=== PATIENT | female | born 1955 | race Caucasian/White ===

== ENCOUNTER → 2017-03-19 09:00 | Outpatient (CLI) | payer OTHER ==
[2012-08-30 09:36] VITALS: BMI 35.2
== END | disposition home or self-care (01) ==
LOC: D.MAMMO 09:00
DX: Z12.31 Encounter for screening mammogram for malignant neoplasm of breast (principal)

== ENCOUNTER → 2017-03-22 18:25 | Outpatient (CLI) | payer OTHER ==
[2012-08-30 09:36] VITALS: BMI 35.2
[2017-03-22 21:52] LABS: ANION GAP 9.5 mmol/L (8-16); CALCIUM 7.3 mg/dL (8.5-10.1); CREATININE - SERUM 2.1 mg/dL (0.6-1.3)
[2017-03-22 21:55] LABS: CARBON DIOXIDE 41.5 mmol/L (21.0-32.0)
== END | disposition home or self-care (01) ==
LOC: D.LABREF 18:25
PROVIDERS: Emergency Medicine
DX: E11.42 Type 2 diabetes mellitus with diabetic polyneuropathy (principal); I11.0 Hypertensive heart disease with heart failure; I50.22 Chronic systolic (congestive) heart failure; Z79.891 Long term (current) use of opiate analgesic

== ENCOUNTER 2017-10-04 13:04 | Day surgery (SDC) | payer OTHER ==
[~2017-10-04] VITALS: Ht 177.8 cm; Wt 133.6 kg
--- NOTE | ~2017-10-04 | OP ---
PATIENT NAME: SHAGGY AGUAYO MEDICAL RECORD: [id number] :59 LOCATION:D.OPS ADMISSION DATE: SURGEON: DAYANARA CLEMENTS DO DATE OF OPERATION: 10/04/2017 PROCEDURE: Colonoscopy with biopsies. INDICATION FOR PROCEDURE: Abdominal pain, rectal prolapse, constipation. SCOPE: Olympus video pediatric colonoscope. MEDICATIONS: Propofol 860 mg IV per anesthesia. ESTIMATED BLOOD LOSS: Minimal. COMPLICATIONS: None. FINDINGS: Informed consent was given. The patient was made comfortable with the above medication. After reaching an adequate level of sedation by slow IV push, the patient was placed on her left side. A digital rectal examination was performed and was normal. The endoscope was then advanced under direct visualization through the rectum to the ascending colon. The endoscope did not reach the cecum. This was complicated by looping of the colonoscope as well as poor prep, which left a large amount of remaining stool still within the ascending colon. The cecum could be visualized in the distance from the final position. The endoscope was slowly withdrawn and mucosa was carefully looked at. From the visualized mucosa, there were no polyps seen on today's examination. In the rectum, there was inflamed, erythematous, and friable tissue which had appearances consistent with prolapsed tissue. Two cold forceps biopsies were taken to confirm this diagnosis. Retroflexion was performed in the rectum with a normal appearing rectal wall. The endoscope was then withdrawn from the patient. The patient tolerated the procedure well and there were no complications. IMPRESSION: 1. Incomplete colonoscopy due to poor prep and looping of the colonoscope. 2. Likely rectal prolapse with appearances of prolapsed tissue in the rectum, biopsies pending. PLAN AND RECOMMENDATIONS: 1. Discharge home when recovery parameters are met. 2. Follow up biopsy specimen results. 3. Referral to [facility] colorectal surgery will be initiated. 4. Increase Linzess to twice daily use. 5. Follow up in GI clinic after [facility] referral completed. 6. We will repeat colonoscopy after it is determine if anything should be done about the rectal prolapse. TRANSINT:[id number] Voice Confirmation ID: [id number] DOCUMENT ID: [id number] OPERATIVE REPORT [id number] SHAGGY AGUAYO DAYANARA CLEMENTS DO at 0911 CC: [id number] DICTATION DATE: 10/04/17 1541 FRENCH LECTURER: 10/04/17 1618 [facility] [place] 10/04/17 [id number] [place] [address]
[2017-10-04] MEDS ORDERED: LIPITOR80 MG PO (13:36)
[2017-10-04] MEDS ORDERED: CYMBALTA60 MG PO (13:38)
[2017-10-04] MEDS ORDERED: KLONOPIN0.5 MG PO (13:38)
[2017-10-04] MEDS ORDERED: FENTANYL (13:39)
[2017-10-04] MEDS ORDERED: FUROSEMIDE40 MG PO (13:40)
[2017-10-04] MEDS ORDERED: DILAUDID8 MG PO (13:41)
[2017-10-04] MEDS ORDERED: ISOSORBIDE MONO30 M1 PO (13:41)
[2017-10-04] MEDS ORDERED: LEVOTHYROXINE50 MCG PO (13:42)
[2017-10-04] MEDS ORDERED: LANTUS INSULIN10 ML SC (13:42)
[2017-10-04] MEDS ORDERED: LISINOPRIL10 MG PO (13:43)
[2017-10-04] MEDS ORDERED: LYRICA150 MG PO (13:43)
[2017-10-04] MEDS ORDERED: LINZESS145 MCG PO (13:43)
[2017-10-04] MEDS ORDERED: PROVIGIL200 MG PO (13:44)
[2017-10-04] MEDS ORDERED: NOVOLOG100 U/M1 SC (13:45)
[2017-10-04] MEDS ORDERED: KLOR-CON20 MEQ/PKT PO (13:45)
[2017-10-04] MEDS ORDERED: BUPROPION XL150 MG PO (13:46)
[2017-10-04] MEDS ORDERED: SYMBICORT 16010.2 GM INH (13:46)
[2017-10-04] MEDS ORDERED: PROTONIX40 MG PO (13:47)
[2017-10-04] MEDS ORDERED: ZANAFLEX4 MG PO (13:48)
[2017-10-04] MEDS ORDERED: VENTOLIN HFA18 GM INH (13:49)
[2017-10-04 13:57] VITALS: BP 120/63; Ht 177.8 cm; Wt 133.6 kg
[2017-10-04 14:15] LABS: BASOPHILS 0.1 % (0-2); EOSINOPHILS 1.4 % (0-7); HEMATOCRIT 34.4 % (36.0-48.0); HEMOGLOBIN 11.5 g/dL (12-16); IMMATURE GRANULOCYTES 0.2 % (0-5); LYMPHOCYTES 17.3 % (15-50); MCH 30.4 pg (26.0-34.0); MCHC 33.4 g/dL (31.0-37.0); RBC 3.78 10x6/uL (4.00-5.40); RDW 13.7 % (11.5-14.5)
[2017-10-04 14:22] LABS: PLATELET COUNT 212 10x3/uL (130-400)
[2017-10-04 14:25] LABS: ANION GAP 12.1 mmol/L (8-16); CALCIUM 8.5 mg/dL (8.5-10.1); CARBON DIOXIDE 34.5 mmol/L (21.0-32.0); CREATININE - SERUM 1.3 mg/dL (0.6-1.3); POTASSIUM - SERUM 4.6 mmol/L (3.5-5.1)
== END 2017-10-04 16:00 | disposition home or self-care (01) ==
LOC: D.OPS 13:04
PROVIDERS: Anesthesiology
DX: R10.9 Unspecified abdominal pain (principal); E11.9 Type 2 diabetes mellitus without complications; G47.30 Sleep apnea, unspecified; K21.9 Gastro-esophageal reflux disease without esophagitis; E66.01 Morbid (severe) obesity due to excess calories; Z68.41 Body mass index [BMI] 40.0-44.9, adult; Z01.812 Encounter for preprocedural laboratory examination

== ENCOUNTER 2017-10-12 11:13 | Emergency (ER) | payer OTHER ==
[2017-10-04 13:57] VITALS: BMI 42.2
[~2017-10-12 11:13] MED LIST: BUPROPION XL150 MG PO; CYMBALTA60 MG PO; DILAUDID8 MG PO; FENTANYL; FUROSEMIDE40 MG PO; ISOSORBIDE MONO30 M1 PO; KLONOPIN0.5 MG PO; KLOR-CON20 MEQ/PKT PO; LANTUS INSULIN10 ML SC; LEVOTHYROXINE50 MCG PO; LINZESS145 MCG PO; LIPITOR80 MG PO; LISINOPRIL10 MG PO; LYRICA150 MG PO; NOVOLOG100 U/M1 SC; PROTONIX40 MG PO; PROVIGIL200 MG PO; SYMBICORT 16010.2 GM INH; VENTOLIN HFA18 GM INH; ZANAFLEX4 MG PO
[2017-10-12 13:08] LABS: BASOPHILS 0.1 % (0-2); EOSINOPHILS 0.6 % (0-7); HEMATOCRIT 34.5 % (36.0-48.0); HEMOGLOBIN 11.7 g/dL (12-16); IMMATURE GRANULOCYTES 0.2 % (0-5); LYMPHOCYTES 12.5 % (15-50); MCHC 33.9 g/dL (31.0-37.0); MCV 91.3 fL (80.0-100.0); MEAN PLATELET VOLUME 10.4 fL (7.4-10.4); MONOCYTES 5.9 % (2-11); NEUTROPHILS 80.7 % (40-80); PLATELET COUNT 188 10x3/uL (130-400); RBC 3.78 10x6/uL (4.00-5.40); RDW 13.5 % (11.5-14.5); WBC 8.2 10x3/uL (4.8-10.8)
[2017-10-12 13:19] LABS: ALBUMIN 3.2 g/dL (3.4-5.0); ANION GAP 10.2 mmol/L (8-16); BILIRUBIN - TOTAL 0.42 mg/dL (0.2-1.3); CALCIUM 8.3 mg/dL (8.5-10.1); CARBON DIOXIDE 34.8 mmol/L (21.0-32.0); CREATININE - SERUM 1.3 mg/dL (0.6-1.3); PROTEIN - SERUM 7.4 g/dL (6.4-8.2)
[2017-10-12 14:14] LABS: UDS - AMPHET NEGATIVE QUAL (NEGATIVE); UDS - BARB POSITIVE QUAL (NEGATIVE); UDS - BENZO NEGATIVE QUAL (NEGATIVE); UDS - COCAINE NEGATIVE QUAL (NEGATIVE); UDS - OPIATE POSITIVE QUAL (NEGATIVE); UDS - PCP NEGATIVE QUAL (NEGATIVE); UDS - THC NEGATIVE QUAL (NEGATIVE)
[2017-10-12 14:23] LABS: APPEARANCE CLEAR (CLEAR); BILIRUBIN NEGATIVE (NEGATIVE); COLOR YELLOW (YELLOW); GLUCOSE NEGATIVE (NEGATIVE); KETONE NEGATIVE (NEGATIVE); NITRITE NEGATIVE (NEGATIVE); PROTEIN NEGATIVE (NEGATIVE); SPECIFIC GRAVITY 1.005 (1.005-1.020); UROBILINOGEN NORMAL (NORMAL)
== END 2017-10-12 14:42 | disposition other institution (70) ==
LOC: D.ER 11:13
PROVIDERS: Family Medicine
DX: F11.23 Opioid dependence with withdrawal (principal); T85.9XXA Unspecified complication of internal prosthetic device, implant and graft, initial encounter; R11.10 Vomiting, unspecified

== ENCOUNTER → 2017-12-07 13:02 | Outpatient (CLI) | payer OTHER ==
[2017-10-04 13:57] VITALS: BMI 42.2
[~2017-12-07 13:02] MED LIST changes: +BUTALB-APAP-CA1 EACH PO; +CARAFATE1 G PO; +ELIQUIS5 MG PO; +REGLAN10 MG PO
== END | disposition home or self-care (01) ==
LOC: D.CT 13:02
DX: K62.3 Rectal prolapse (principal)

== ENCOUNTER 2018-01-20 18:20 | Inpatient (IN) | payer OTHER ==
[~2018-01-20] VITALS: Ht 177.8 cm; Wt 127.3 kg
--- NOTE | ~2018-01-20 | OP ---
PATIENT NAME: SHAGGY AGUAYO MEDICAL RECORD: [id number] :59 LOCATION:D.M2 D.2120 ADMISSION DATE:01/21/18 SURGEON: EVONNE HOWARD MD DATE OF OPERATION: 01/25/2018 PROCEDURES: 1. Left heart catheterization. 2. Selective coronary angiography. 3. Left ventriculogram. INDICATION: Chest pain compatible with angina. PROCEDURE IN DETAIL: After informed consent was obtained and after a detailed description of the risks, benefits as well as alternative therapies, the patient elected to proceed with angiogram and heart catheterization. The right radial area was prepped and draped in normal sterile fashion. Right radial artery was cannulated via modified Seldinger technique with placement of 6-Maori sheath. All catheters exchanged through this sheath. FINDINGS: The left ventriculogram was performed in standard 30-degree KELLY view reveals preserved cardiac wall motion, ejection fraction 50% to 55%. SELECTIVE CORONARY ANGIOGRAPHY: Left main, left anterior descending, left circumflex, right coronary artery are all smooth-walled vessels with no angiographic evidence of coronary artery disease. OVERALL IMPRESSION: 1. No angiographic evidence of coronary artery disease. 2. Normal left heart pressures. 3. Normal left ventricular systolic function. Chest pain is noncardiac in etiology. No further cardiac workup needs to be ascertained. TRANSINT:[id number] Voice Confirmation ID: [id number] DOCUMENT ID: [id number] EVONNE HOWARD MD at 1642 CC: [id number] DICTATION DATE: 01/25/18 1327 HOME DEMONSTRATION AGENT: 01/25/18 1412 DIS IN 01/27/18 [facility] [address] [place] [address]
--- NOTE | ~2018-01-20 | EC ---
PATIENT:SHAGGY AGUAYO DATE OF SERVICE: 01/21/18 SEX: F MEDICAL RECORD: [id number] DATE OF : 59 LOCATION:D. D.212 AGE OF PATIENT: 62 ADMISSION DATE: 01/21/18 REFERRING PHYSICIAN: INTERPRETING PHYSICIAN: EVONNE CHARLES MD ECHOCARDIOGRAM REPORT ECHO CHARGES 4 ECHO COMPLETE Date: 01/21 CLINICAL DIAGNOSIS: HTN ECHOCARDIOGRAPHIC MEASUREMENTS (adult normal given) AC root (d.<3.7cm) 4.3 cm LV Septum d (<1.2 cm> 1.5 cm Valve Excursion 2.0 cm LV Septum (systole) 1.9 cm Left Atria (s.<4.0cm> 4.0 cm LVPW d(<1.2cm) 1.7 cm RV (d.<2.3cm) 4.1 cm LVPW (sytole) 1.8 cm LV diastole(<5.6CM) 5.6 cm MV E-F(>70mm/sec) cm LV systole 3.5 cm LVOT Diameter 2.2 cm MV exc.(>10mm) cm Est.ejection fraction (50-75%) % DOPPLER: LVIT cm/sec A 97 cm/sec E 109 cm/sec LA cm/sec RVSP 45 mmHg LVOT 117 cm/sec AOP1/2T m/s Asc. Ao 160 cm/sec RVOT 92 cm/sec RA cm/sec PA 119 cm/sec AV Gradient Peak 10.28mmHg AV Mean 5.35 mmHg AV Area 2.7 cm MV Gradient Peak 4.89 mmHg MV Mean 2.11 mmHg MV Area cm COMMENTS: Proposal Development Manager: Erich RIVERA Milk Collector: 1 Dr. Charles TAPE# PACS Pericardial Effusion N DATE OF SERVICE: 01/21/2018 FINDINGS: 1. Left ventricular chamber size is within normal limits. Left ventricular systolic function is normal. Overall ejection fraction is estimated at 60%. 2. Left atrium upper limits of normal at 4.0 cm. Right atrium and right ventricle chamber sizes are mildly dilated. 3. Valvular structure have normal structure and motion. 4. Doppler interrogation reveals mild tricuspid regurgitation. No other valvular insufficiency or stenosis. Pulmonary systolic pressure is estimated at ECHOCARDIOGRAM REPORT [id number] SHAGGY AGUAYO 45 mmHg. 5. No evidence of pericardial effusion or left ventricular thrombus. TRANSINT:[id number] Voice Confirmation ID: [id number] DOCUMENT ID: [id number] EVONNE CHARLES MD at 1834 CC: [id number] DICTATION DATE: 01/21/18 1443 AC/DC REWINDER: 01/21/18 1548 ADM IN [facility] [address] [place] [address]
--- NOTE | ~2018-01-20 | HEMODYNAMI ---
PATIENT:SHAGGY AGUAYO MEDICAL RECORD: [id number] : 59 LOCATION:[facility] D.2120 ADMISSION DATE: 01/21/18 Generatedon:01/24/201812:33 Patient name: SHAGGY AGUAYO Patient #: [id number] SSN: DO B: 1955 Date of study: 01/24/2018 Page: Of Hemodynamic Procedure Report Patient Data Patient Demographics Procedure consent was obtained First Name: SHAGGY Gender: Female Last Name: OLIVIER : 1955 [facility] Initial: BIRGIT Age: 62 year(s) Patient #: [id number] Race: Unknown Additional ID: [id number] Contact details [address]: [address] [place] [address] State: [place] City: [place] Zip code: [address] Past Medical History Allergies Allergen Reaction Date Comments Reported Other allergy 01/24/2018 CIPRO, INVANZ, VANC, VALIUM, PCN, SULFA Admission Admission Data Admission Date: 01/21/2018 Admission Time: 12:51 Room #: D.2120 Procedure Procedure Types Cath Procedure Diagnostic Procedure Procedure Description Procedure Date Procedure Date: 01/24/2018 Procedure Start Time: 11:31 Procedure Staff Name Function Delphine Smith RT Monitor Flora Yeager RN Nurse Luis Charles MD Performing Physician Bala Gruber RT Scrub Procedure Medications Medication Administration Route Dosage Oxygen etCO2 Nasal cannula 2 l/min Lidocaine 2% added to field 20 Heparin Flush Bag added to field 2 bags (1000units/500ml NS) 0.9% NaCl I.V. 100 ml/hr Solumedrol I.V. 125 mg Versed I.V. 2 mg Fentanyl I.V. 100 mcg Fentanyl I.V. 100 mcg Versed I.V. 2 mg Versed I.V. 2 mg Fentanyl I.V. 100 mcg Hemodynamics Rest Heart Rate: 69 (bpm) Snapshots Pre Cath Intra NCS Post Cath Vital Signs Time Heart Resp SPO2 etCO2 NIBP (mmHg) Rhythm Pain Sedation Rate (ipm) (%) (mmHg) Status Level (bpm) 12:05:30 67 23 96 49.3 149/81(123) NSR 0 (11) 10(A) , No pain 12:09:36 71 27 94 47.8 149/87(111) NSR 0 (11) 10(A) , No pain 12:13:41 70 16 95 44.1 151/89(119) NSR 0 (11) 10(A) , No pain 12:17:47 67 13 96 47.8 159/91(134) NSR 0 (11) 10(A) , No pain 12:21:55 71 14 94 45.5 158/92(128) NSR 0 (11) 10(A) , No pain 12:26:05 66 14 95 49.3 155/87(125) NSR 0 (11) 10(A) , No pain Medications Time Medication Route Dose Verified Delivered Reason Notes Effectiveness by by 12:07:41 Oxygen etCO2 2 Luis Buffie used for pt is on Nasal l/min Araceli Yeager RN procedure home oxygen cannula at 2 liters at all times. 12:07:47 Lidocaine 2% added 20ml Luis Luis for local to vial Araceli Charles MD anesthetic field 12:07:53 Heparin Flush added 2 Luis Luis used for Bag to bags Araceli Charles MD procedure (1000units/500ml field NS) 12:08:01 0.9% NaCl I.V. 100 Luisjass Hines Per ml/hr Araceli Yeager RN physician 12:14:36 Versed I.V. 2 mg Luis Hines for pt states Araceli Yeager RN sedation anaphlyasis to iodine 12:14:38 Fentanyl I.V. 100 Luis Buffie for pt states mcg Araceli Yeager RN sedation anaphlyasis to iodine 12:17:33 Versed I.V. 2 mg Luis Carranzaie for Araceli Yeager RN sedation 12:17:44 Fentanyl I.V. 100 Luis Carranzaie for mcg Araceli Yeager RN sedation 12:21:02 Fentanyl I.V. 100 Luis Carranzaie for mcg Araceli Yeager RN sedation 12:21:58 Versed I.V. 2 mg Luis Hines for Araceli Yeager RN sedation 12:22:11 Solumedrol I.V. 125 Luis Hines Per pt states mg Araceli Yeager RN physician anaphlyasis to iodine Procedure Log Time Note 11:32:42 Time tracking: Regular hours (M-F 7:00 - 5:00) 11:32:46 Plan of Care:Hemodynamics will remain stable., Cardiac rhythm will remain stable., Comfort level will be maintained., Respiratory function will remain adequate., Patient/ family verbilizes understanding of procedure., Procedure tolerated without complication., Recovers from procedure without complications.. 11:34:32 Flora Yeager RN sent for patient. Start room use. 11:48:08 Patient received from PCU to CCL 2 Alert and oriented. Tansferred to table in Supine position. 11:48:10 Correct patient and procedure confirmed by team. 11:48:10 Warm blankets applied, and blanco hugger turned on for patient comfort. 11:48:12 Signed procedure consent form obtained from patient. 11:48:13 ECG and BP/O2 sat monitors applied to patient. 11:48:14 Full Disclosure recording started 12:04:24 Vital chart was started 12:07:41 Oxygen 2 l/min etCO2 Nasal cannula was administered by Flora Yeager RN; used for procedure; pt is on home oxygen at 2 liters at all times. 12:07:42 Baseline sample Acquired. 12:07:47 Rhythm: sinus rhythm 12:07:47 Lidocaine 2% 20ml vial added to field was administered by Luis Charles MD; for local anesthetic; 12:07:53 H&P Date Dictated: 01/24/2018 Within 30 days and on chart.. 12:07:53 Heparin Flush Bag (1000units/500ml NS) 2 bags added to field was administered by Luis Charles MD; used for procedure; 12:07:55 Pre-op teaching completed and patient verbalized understanding. 12:07:55 Pre-procedure instructions explained to patient. 12:07:58 Family in patients room. 12:08:00 Patient NPO since Midnight. 12:08:01 0.9% NaCl 100 ml/hr I.V. was administered by Flora Yeager RN; Per physician; 12:08:48 Patient allergic to Other allergyCIPRO, INVANZ, VANC, VALIUM, PCN, SULFA 12:08:50 Is the patient allergic to Iodine/contrast media? No. 12:08:53 Is patient on blood thinner?Yes 12:10:12 Previous problem with sedation/anesthesia? No ? 12:10:14 Snore? Yes 12:10:15 Deviated septum? No 12:10:15 Sleep apnea? Yes 12:10:17 Opens mouth fully? Yes 12:10:18 Sticks out tongue? Yes 12:10:20 Airway obstruction? Yes COPD 12:10:23 Dentures? No ? 12:11:06 Patient diabetic? Yes. 12:11:17 If diabetic: On Metformin? No 12:11:20 Pre procedure: right dorsailis pedis pulse 1+ Palpable, but thready & weak; easily obliterated 12:11:23 Modified Selwyn's test Ulnar < 7 seconds 12:11:24 Patient pain scale 0/10 ?. 12:11:44 PICC LINE LEFT UPPER ARM 12:11:49 Lab results completed and on chart. 12:11:54 Right Radial & Right Groin area was prepped with chlora-prep and draped in sterile fashion 12:11:55 Sharps counted by scrub and verified by R.N. 12:11:55 Alarms reviewed by R. N. 12:11:59 Use device set Radial Dx or PCI 12:13:38 Final Timeout: patient, procedure, and site verified with staff and physician. All members of the team are in agreement. 12:13:41 Right Radial site verified by team. 12:13:44 Physical assessment completed. ASA score P 2 - A patient with mild systemic disease as per Luis Charles MD. 12:13:48 Sedation plan: IV Moderate Sedation Medication:Versed, Fentanyl 12:14:36 Versed 2 mg I.V. was administered by Flora Yeager RN; for sedation; pt states anaphlyasis to iodine 12:14:38 Fentanyl 100 mcg I.V. was administered by Flora Yeager RN; for sedation; pt states anaphlyasis to iodine 12:15:38 Zero performed for pressure channel P1 12:17:33 Versed 2 mg I.V. was administered by Flora Yeager RN; for sedation; 12:17:44 Fentanyl 100 mcg I.V. was administered by Flora Yeager RN; for sedation; 12:21:02 Fentanyl 100 mcg I.V. was administered by Flora Yeager RN; for sedation; 12:21:10 PROCEDURE CANCELLED DUE TO ANAPHYLACTIC IODINE ALLERGY HISTORY. WILL PREMEDICATE WITH PREDNISONE TONIGHT AND SCHEDULE PROCEDURE FOR TOMORROW PER DR CHARLES 12:21:58 Versed 2 mg I.V. was administered by Flora Yeager RN; for sedation; 12:22:11 Solumedrol 125 mg I.V. was administered by Flora Yeager RN; Per physician; pt states anaphlyasis to iodine 12:22:28 Procedure ended.(Physican Out) 12:22:40 Sharps counted by scrub and verified by R.N. 12:22:48 Post procedure rhythm: unchanged. 12:23:06 Procedure type changed to Cath procedure, Diagnostic procedure 12:29:11 Vital chart was stopped 12:29:27 Report given to PCU. 12:29:32 Patient transfered to PCU with Bed. 12:29:36 End room use (Document Last) 12:30:00 Full Disclosure recording stopped Signature Audit Floweree Stage Time Signature Unsigned Intra-Procedure 01/24/2018 Delphine Akers Counts 12:29:53 PM Counts RT(R) RT(R) 01/24/2018 12:32:21 PM Intra-Procedure 01/24/2018 Delphine 12:33:53 PM Counts RT(R) Signatures Monitor : Delphine Signature : Counts RT Date : Time : [place] [id number] [place] [address]
--- NOTE | ~2018-01-20 | HEMODYNAMI ---
PATIENT:SHAGGY AGUAYO MEDICAL RECORD: [id number] : 59 [id number] ADMISSION DATE: 01/21/18 Generatedon:01/25/201813:32 Patient name: SHAGGY AGUAYO Patient #: [id number] SSN: DO B: 1955 Date of study: 01/25/2018 Page: Of Hemodynamic Procedure Report Patient Data Patient Demographics Procedure consent was obtained First Name: SHAGGY Gender: Female Last Name: OLIVIER : 1955 [facility] Initial: BIRGIT Age: 62 year(s) Patient #: [id number] Race: Unknown Additional ID: [id number] Contact details Address: [address] [place] [address] State: [place] City: [place] Zip code: [address] Past Medical History Allergies Allergen Reaction Date Comments Reported Other allergy 01/24/2018 CIPRO, INVANZ, VANC, VALIUM, PCN, SULFA Iodine 01/25/2018 Vancomycin 01/25/2018 Penicillins 01/25/2018 Sulfa drugs 01/25/2018 Admission Admission Data Admission Date: 01/21/2018 Admission Time: 12:51 Admit Source: Other Room #: D.2120 Lab Results Lab Result Date: 01/25/2018 Lab Result Time: 0:00 Biochemistry Name Units Result Min Max BUN mg/dl 11 --(-*--)-- 7 18 Creatinine mg/dl 1.2 --(---*)-- 0.6 1.3 CBC Name Units Result Min Max Hemoglobin g/dl 9.8 *-(----)-- 13.5 17.5 Procedure Procedure Types Cath Procedure Diagnostic Procedure LHC LHC w/Coronaries Procedure Description Procedure Date Procedure Date: 01/25/2018 Procedure Start Time: 13:05 Procedure End Time: 13:29 Procedure Staff Name Function Luis Charles MD Performing Physician Hipolito Newberry RT Monitor Bala Gruber RT Scrub Jb Hilario RN Nurse Procedure Data Cath Procedure Fluoroscopy Diagnostic fluoroscopy Total fluoroscopy Time: 9.2 time: 9.2 min min Diagnostic fluoroscopy Total fluoroscopy dose: dose: 1692 mGy 1692 mGy Contrast Material Contrast Material Type Amount (ml) Isovue 300 150 Entry Location Entry Primary Successful Side Size Upsize Upsize Entry Closure Ballard ccessful Closure Location (Fr) 1 (Fr) 2 (Fr) Remarks Device Remarks Radial Right 6 Fr Mechanical artery Short Compression Diagnostic catheters Device Type Used For End Catheter Placement DIAGNOSTIC [place] 110cm 5 LV Angiography Fr catheter ([id number]) DIAGNOSTIC 3DRC 5Fr Right Coronary catheter ([id number]) Angiography DIAGNOSTIC AR 2 MOD 5 Fr Right Coronary catheter ([id number]) Angiography Procedure Complications No complications Procedure Medications Medication Administration Route Dosage 0.9% NaCl I.V. 100 ml/hr Oxygen NC 2 l/min Heparin Flush Bag added to field 2 bags (1000units/500ml NS) Lidocaine 2% added to field 20 Radial Cocktail added to field 1 syringe (Verapomil 2mg/Nitro 400mcg/Heparin 1500units) Versed I.V. 2 mg Fentanyl I.V. 100 mcg Radial Cocktail I.A. 1 syringe (Verapomil 2mg/Nitro 400mcg/Heparin 1500units) Versed I.V. 2 mg Fentanyl I.V. 100 mcg Hemodynamics Rest HGB: 9.8 (g/dl) Heart Rate: 72 (bpm) Snapshots Pre Cath Intra NCS Post Cath Vital Signs Time Heart Resp SPO2 etCO2 NIBP (mmHg) Rhythm Pain Sedation Rate (ipm) (%) (mmHg) Status Level (bpm) 12:52:39 71 19 98 0 168/90(127) NSR 0 (11) 10(A) , No pain 12:57:22 68 16 94 0 156/83(119) NSR 0 (11) 10(A) , No pain 13:02:03 66 13 96 0 154/82(128) NSR 0 (11) 10(A) , No pain 13:06:35 80 15 93 0 120/73(88) NSR 0 (11) 10(A) , No pain 13:11:48 75 15 93 0 148/76(112) NSR 0 (11) 10(A) , No pain 13:16:25 74 15 95 0 163/83(122) NSR 0 (11) 10(A) , No pain 13:21:32 74 20 95 0 161/81(120) NSR 0 (11) 10(A) , No pain 13:26:11 70 20 96 0 161/91(130) NSR 0 (11) 10(A) , No pain Medications Time Medication Route Dose Verified Delivered Reason Notes Effectiveness by by 12:50:02 0.9% NaCl I.V. 100 Bj Jb Per ml/hr Yanelis Hilario physician RN RN 12:50:12 Oxygen NC 2 l/min Jb Jb Per Yanelis Hilario physician HALLE RN 12:50:25 Heparin Flush added 2 bags Jb Jb used for Bag to Yanelis Hilario procedure (1000units/500ml field HALLE NERI NS) 12:50:37 Lidocaine 2% added 20ml Jb Jb for local to vial Lorigan Yanelis anesthetic field HALLE NERI 12:51:03 Radial Cocktail added 1 Jb Jb used for (Verapomil to syringe Yanelis Hilario procedure 2mg/Nitro field HALLE NERI 400mcg/Heparin 1500units) 13:02:46 Versed I.V. 2 mg Jb Jb for sedation Yanelis Hilario RN, RN 13:02:54 Fentanyl I.V. 100 mcg Jb Jb for sedation Yanelis Hilario RN RN 13:04:51 Radial Cocktail I.A. 1 Jb Luis for (Verapomil syringe Yanelis Charles MD vasodilation 2mg/Nitro RN 400mcg/Heparin 1500units) 13:04:59 Versed I.V. 2 mg Jb Jb for sedation Yanelis Hilario RN, RN 13:05:05 Fentanyl I.V. 100 mcg Jb Jb for sedation Yanelis Hilario RN mail carrier technician Log Time Note 12:28:36 Informed consent obtained and on chart 12:28:40 Admit Source: Other 12:29:22 Diagnostic Cath status Elective 12:29:25 Hipolito DRISCOLL(R) sent for patient. Start room use. :: Time tracking: Regular hours (M-F 7:00 - 5:00) 12::29 Plan of Care:Hemodynamics will remain stable., Cardiac rhythm will remain stable., Comfort level will be maintained., Respiratory function will remain adequate., Patient/ family verbilizes understanding of procedure., Procedure tolerated without complication., Recovers from procedure without complications.. 12:30:15 H&P Date Dictated: 01/20/2018 Within 30 days and on chart.. 12:38:39 Patient received from Med II to CCL 1 Alert and oriented. Tansferred to table in Supine position. 12:38:40 Warm blankets applied, and blanco hugger turned on for patient comfort. 12:38:41 Correct patient and procedure confirmed by team. 12:38:41 ECG and BP/O2 sat monitors applied to patient. 12:49:48 Vital chart was started 12:50:02 0.9% NaCl 100 ml/hr I.V. was administered by Jb Hilario RN; Per physician; 12:50:12 Oxygen 2 l/min NC was administered by Jb Hilario RN; Per physician; 12:50:25 Heparin Flush Bag (1000units/500ml NS) 2 bags added to field was administered by Jb Hilario RN; used for procedure; 12:50:37 Lidocaine 2% 20ml vial added to field was administered by Jb Hilario RN; for local anesthetic; 12:51:03 Radial Cocktail (Verapomil 2mg/Nitro 400mcg/Heparin 1500units) 1 syringe added to field was administered by Jb Hilario RN; used for procedure; 12:59:01 Baseline sample Acquired. 12:59:04 Rhythm: sinus rhythm 12:59:05 Full Disclosure recording started 12:59:06 Pre-procedure instructions explained to patient. 12:59:07 Pre-op teaching completed and patient verbalized understanding. 12:59:09 Family unavailable. 12:59:11 Patient NPO since Midnight. 12:59:22 Patient allergic to Iodine 12:59:35 Patient allergic to Vancomycin 12:59:46 Patient allergic to Penicillins 12:59:54 Patient allergic to Sulfa drugs 12:59:56 Is the patient allergic to Iodine/contrast media? Yes. 12:59:58 Was the patient premedicated? Yes 13:00:06 Is patient on blood thinner?No 13:00:07 Patient diabetic? Yes. 13:00:09 If diabetic: On Metformin? No 13:00:10 ----Pre-sedation anethsthesia assessment.---- 13:00:13 Previous problem with sedation/anesthesia? No ? 13:00:15 Snore? Yes 13:00:17 Sleep apnea? Yes 13:00:19 Deviated septum? No 13:00:23 Opens mouth fully? Yes 13:00:25 Sticks out tongue? Yes 13:00:27 Airway obstruction? Yes ? 13:00:30 Dentures? No ? 13:00:34 Pre procedure: right dorsailis pedis pulse 1+ Palpable, but thready & weak; easily obliterated 13:00:37 Modified Selwyn's test Ulnar < 7 seconds 13:00:40 Patient pain scale 0/10 ?. 13:00:48 IV patent on arrival in left forearm with 0.9% NaCl at 10ml/hr. 13:01:09 Lab Result : Creatinine 1.2 mg/dl 13:01:09 Lab Result : BUN 11 mg/dl 13:01:09 Lab Result : Hemoglobin 9.8 g/dl 13:01:14 Lab results completed and on chart. 13:01:18 Right Radial & Right Groin area was prepped with chlora-prep and draped in sterile fashion 13:01:19 Alarms reviewed by R. N. 13:01:19 Sharps counted by scrub and verified by R.N. 13::21 --------ALL STOP TIME OUT------ 13:01:21 Final Timeout: patient, procedure, and site verified with staff and physician. All members of the team are in agreement. 13:01:24 Right Radial & Right Groin site verified by team. 13:01:27 Physical assessment completed. ASA score P 2 - A patient with mild systemic disease as per Luis Charles MD. 13:01:30 Sedation plan: IV Moderate Sedation Medication:Versed, Fentanyl 13:02:46 Versed 2 mg I.V. was administered by Jb Hilario RN; for sedation; 13:02:54 Fentanyl 100 mcg I.V. was administered by Jb Hilario RN; for sedation; 13:04:25 Use device set Radial Dx or PCI 13:04:26 ACIST Syringe (16786) opened to sterile field. 13:04:26 Medline Cath Pack ([id number]) opened to sterile field. 13:04:27 Bag Decanter (2002S) opened to sterile field. 13:04:27 DIAGNOSTIC WIRE .035 260cm J wire (148689) opened to sterile field. 13:04:28 ACIST Hand Control (08274) opened to sterile field. 13:04:28 ACIST Manifold (35610) opened to sterile field. 13:04:29 Tegaderm 4 x 4 (1626W) opened to sterile field. 13:04:29 MBrace Wrist Support ([id number]) opened to sterile field. 13:04:31 TR BAND Large ([id number]) opened to sterile field. 13:04:38 SHEATH 6Fr Prelude Radial ([id number]) opened to sterile field. 13:04:43 Procedure started. 13:04:51 Radial Cocktail (Verapomil 2mg/Nitro 400mcg/Heparin 1500units) 1 syringe I.A. was administered by Luis Charles MD; for vasodilation; 13:04:59 Versed 2 mg I.V. was administered by Jb Hilario RN; for sedation; 13:05:05 Fentanyl 100 mcg I.V. was administered by Jb Hilario RN; for sedation; 13:05:14 Local anesthetic to right radial artery with Lidocaine 2% by Luis Charles MD.INITIAL ACCESS ONLY 13:05:22 A 6 Fr Short sheath was inserted into the Right Radial artery 13:05:29 A DIAGNOSTIC [place] 110cm 5 Fr catheter (273396) was advanced over the wire and used for LV Angiography. 13:05:32 LV angiography performed. 13:05:35 LV gram done using KELLY 13:06:11 Zero performed for pressure channel P1 13:06:45 EF : 60 % 13:08:05 Catheter removed. 13:08:54 GUIDE 6FR AR 2.0 catheter (EF5VA14) opened to sterile field. 13:09:05 6 Fr AR 2 guide catheter was inserted over the wire 13:10:29 Catheter removed. 13:11:38 GUIDE 6FR XBLAD 3.5 catheter ([id number]) opened to sterile field. 13:11:53 6 Fr XBLAD 3.5 guide catheter was inserted over the wire 13:12:53 Catheter removed. 13:13:03 GUIDE 6FR XBLAD 4.0 catheter ([id number]) opened to sterile field. 13:13:09 LCA angiography performed. 13:17:09 Catheter removed. 13:17:38 Zero performed for pressure channel P1 13:18:06 A DIAGNOSTIC 3DRC 5Fr catheter (593419Y) was advanced over the wire and used for Right Coronary Angiography. 13:19:35 Catheter removed. 13:20:30 A DIAGNOSTIC AR 2 MOD 5 Fr catheter (266010G) was advanced over the wire and used for Right Coronary Angiography. 13:25:09 RCA angiography performed. 13:25:10 Catheter removed. 13:27:29 Sheath removed intact; hemostasis achieved with Mechanical Compression to the Right Radial artery. 13:27:32 Procedure ended.(Physican Out) 13:27:47 Fluoroscopy time 09.20 minutes. 13:27:55 Fluoroscopy dose: 1692 mGy 13:27:55 Flurop Dose total: 1692 13:28:09 Contrast amount:Isovue 300 150ml. 13:28:11 Sharps counted by scrub and verified by R.N. 13:28:13 TR band inflated with 14cc of air. 13:28:15 Insertion/operative site no bleeding no hematoma. 13:28:18 Post-op/insertion site Right Femoral artery dressed using a 4 x 4 and Tegaderm. 13:28:44 Post right radial artery:stable 13:28:46 Post Procedure Pulses reassessed and unchanged 13:28:50 Post procedure rhythm: sinus rhythm 13:28:52 Post procedure instruction explained to patient.Patient verbalizes understanding. 13:29:00 Procedure and supply charges have been captured, reviewed, submitted and are correct. 13:29:24 Procedure Complication : No complications 13:29:27 Vital chart was stopped 13:29:27 See physician's report for complete and final results. 13:29:30 Report given to PCU. 13:29:34 Patient transfered to PCU with Bed. 13:29:36 Procedure ended. 13:29:36 Full Disclosure recording stopped 13:29:41 End room use (Document Last) Device Usage Item Name Manufacture Quantity Catalog Number Hospital Part Current M inimal Lot# / Charge Number Stock Stock Serial# Code ACIST Syringe Acist 1 44630 548409 412417 026779 2 0 (68134) MyWave Medline Cath Cardinal 1 [id number] 569104 16993 690568 5 Pack [facility] ([id number]) Bag Decanter Microtek 1 062528 87685 317852 5 (2002S) Medical Inc. DIAGNOSTIC WIRE St Iggy 1 820353 488858 664575 060987 3 0 .035 260cm J wire (915158) ACIST Hand Acist 1 92339 167410 071229 497046 5 Control (96426) Medical Systems Inc ACIST Manifold Acist 1 79822 380482 912860 264466 5 (64874) Medical Systems Inc Tegaderm 4 x 4 3M 1 1626W 942885 367645 342171 5 (1626W) MBrace Wrist Advanced 1 140-0250-00 012504 39941 385909 5 Support Vascular ([id number]) Dynamics TR BAND Large Terumo 1 [id number] 462272 280794 360301 4 0 ([id number]) SHEATH 6Fr Merit 1 [id number] 771799 067029 574581 5 Prelude Radial Medical ([id number]) DIAGNOSTIC Terumo 1 40-8343 487956 348390 326859 5 [place] 110cm 5 Fr catheter (658703) GUIDE 6FR AR Medtronic 1 [id number] 507558 08192 815291 1 2.0 catheter (YQ0DL19) GUIDE 6FR XBLAD Cardinal 1 13664102 697117 711616 683522 1 0 3.5 catheter Health (30325521) GUIDE 6FR XBLAD Cardinal 1 28951073 387641 101811 887928 3 4.0 catheter Health (32030449) DIAGNOSTIC 3DRC Cardinal 1 [id number] 542358 535744 502560 9 5Fr catheter Health (940966R) DIAGNOSTIC AR 2 Cardinal 1 [id number] 720141 935642 827784 2 0 MOD 5 Fr Health catheter (168789T) Signature Audit [place] Stage Time Signature Unsigned Intra-Procedure 01/25/2018 Hipolito DRISCOLL(Kiesha) 1:32:47 PM Signatures Monitor : Hipolito Newberry RT Signature : Date : Time : [facility] [address] [place] [address]
[~2018-01-20 18:20] MED LIST changes: -BUTALB-APAP-CA1 EACH PO; -CARAFATE1 G PO; -ELIQUIS5 MG PO; -REGLAN10 MG PO
[2018-01-20 19:11] LABS: BASOPHILS 0.1 % (0-2); EOSINOPHILS 1.1 % (0-7); HEMATOCRIT 34.4 % (36.0-48.0); HEMOGLOBIN 11.6 g/dL (12-16); IMMATURE GRANULOCYTES 0.1 % (0-5); LYMPHOCYTES 14.8 % (15-50); MCH 30.4 pg (26.0-34.0); MCHC 33.7 g/dL (31.0-37.0); MCV 90.3 fL (80.0-100.0); MEAN PLATELET VOLUME 10.3 fL (7.4-10.4); MONOCYTES 4.2 % (2-11); NEUTROPHILS 79.7 % (40-80); PLATELET COUNT 166 10x3/uL (130-400); RBC 3.81 10x6/uL (4.00-5.40); RDW 13.6 % (11.5-14.5); WBC 9.3 10x3/uL (4.8-10.8)
[2018-01-20 19:51] LABS: ALBUMIN 3.4 g/dL (3.4-5.0); ALKALINE PHOSPHATASE 122 U/L (46-116); ALT (SGPT) 14 U/L (10-68); BILIRUBIN - TOTAL 0.78 mg/dL (0.2-1.3); CALC OSMOLALITY 283 mosm/kg (275-300); CARBON DIOXIDE 31.8 mmol/L (21.0-32.0); CHLORIDE - SERUM 97 mmol/L (98-107); CKMB 0.8 U/L (0.0-3.6); CREATININE - SERUM 2.1 mg/dL (0.6-1.3); GLUCOSE 138 mg/dL (74-106); POTASSIUM - SERUM 3.1 mmol/L (3.5-5.1); PROTEIN - SERUM 7.6 g/dL (6.4-8.2); SODIUM 139 mmol/L (136-145); UREA NITROGEN 25 mg/dL (7-18); eGFR NON AFRICAN AMERICAN 25 mL/min (90-120)
[2018-01-20 19:53] LABS: TROPONIN-I < 0.017 ng/mL (0.000-0.060)
[2018-01-20 19:54] LABS: CALCIUM 5.8 mg/dL (8.5-10.1)
[2018-01-21 00:50] LABS: CKMB 1.2 U/L (0.0-3.6); TROPONIN-I < 0.017 ng/mL (0.000-0.060)
[2018-01-21] MEDS ORDERED: ELIQUIS5 MG PO (02:21)
[2018-01-21] MEDS ORDERED: BUTALB-APAP-CA1 EACH PO (02:30)
[2018-01-21 02:36] VITALS: BP 134/78; BMI 36.6
[2018-01-21 05:06] LABS: BASOPHILS 0.1 % (0-2); EOSINOPHILS 1.6 % (0-7); HEMATOCRIT 33.3 % (36.0-48.0); HEMOGLOBIN 11.1 g/dL (12-16); IMMATURE GRANULOCYTES 0.3 % (0-5); LYMPHOCYTES 29.8 % (15-50); MCH 30.1 pg (26.0-34.0); MCHC 33.3 g/dL (31.0-37.0); MCV 90.2 fL (80.0-100.0); MONOCYTES 6.1 % (2-11); NEUTROPHILS 62.1 % (40-80); PLATELET COUNT 171 10x3/uL (130-400); RBC 3.69 10x6/uL (4.00-5.40); RDW 13.5 % (11.5-14.5); WBC 7.7 10x3/uL (4.8-10.8)
[2018-01-21 05:36] LABS: CALC OSMOLALITY 284 mosm/kg (275-300); CARBON DIOXIDE 30.5 mmol/L (21.0-32.0); CHLORIDE - SERUM 101 mmol/L (98-107); CKMB 0.9 U/L (0.0-3.6); CREATININE - SERUM 1.9 mg/dL (0.6-1.3); GLUCOSE 98 mg/dL (74-106); PHOSPHOROUS 4.5 mg/dL (2.5-4.9); POTASSIUM - SERUM 3.1 mmol/L (3.5-5.1); SODIUM 141 mmol/L (136-145); TROPONIN-I < 0.017 ng/mL (0.000-0.060); UREA NITROGEN 23 mg/dL (7-18); eGFR NON AFRICAN AMERICAN 28 mL/min (90-120)
[2018-01-21 05:38] LABS: MAGNESIUM - SERUM 0.2 mg/dL (1.8-2.4)
[2018-01-21 05:50] VITALS: BP 86/40
[2018-01-21 08:25] VITALS: BP 100/46
[2018-01-21 08:53] VITALS: Ht 177.8 cm; Wt 127.3 kg
[2018-01-21 11:43] VITALS: BP 112/76
[2018-01-21 15:57] LABS: T4 THYROXIN - FREE 1.29 ng/dL (0.76-1.46); THYROID STIMULATING HORMONE 0.47 uIU/mL (0.36-3.74)
[2018-01-21 16:16] LABS: % SATURATION 19 % (15-55); IRON 42 ug/dl (35-150); TOTAL IRON BIND CAPACITY 217 ug/dl (260-445); UNSAT IRON BIND CAPACITY 175 ug/dl (150-375)
[2018-01-21 20:00] VITALS: BP 98/36
[2018-01-22] VITALS: BP 92/52
[2018-01-22 04:00] VITALS: BP 90/48
[2018-01-22 05:46] LABS: BASOPHILS 0.2 % (0-2); EOSINOPHILS 2.2 % (0-7); HEMATOCRIT 29.4 % (36.0-48.0); HEMOGLOBIN 9.7 g/dL (12-16); IMMATURE GRANULOCYTES 0.2 % (0-5); LYMPHOCYTES 17.9 % (15-50); MCH 30.1 pg (26.0-34.0); MCV 91.3 fL (80.0-100.0); MONOCYTES 5.8 % (2-11); NEUTROPHILS 73.7 % (40-80); PLATELET COUNT 152 10x3/uL (130-400); RBC 3.22 10x6/uL (4.00-5.40); RDW 13.6 % (11.5-14.5)
[2018-01-22 05:49] LABS: WBC 5.5 10x3/uL (4.8-10.8)
[2018-01-22 06:02] LABS: ALBUMIN 2.7 g/dL (3.4-5.0); BILIRUBIN - TOTAL 0.47 mg/dL (0.2-1.3); CARBON DIOXIDE 31.6 mmol/L (21.0-32.0); CREATININE - SERUM 1.8 mg/dL (0.6-1.3)
[2018-01-22 06:04] LABS: CALCIUM 6.3 mg/dL (8.5-10.1); POTASSIUM - SERUM 3.6 mmol/L (3.5-5.1); PROTEIN - SERUM 5.5 g/dL (6.4-8.2)
[2018-01-22 08:09] VITALS: BP 92/40
[2018-01-22 08:19] LABS: FOLATE (FOLIC ACID) - SERUM 7.6 ng/mL (>3.0)
[2018-01-22 11:46] VITALS: BP 80/40
[2018-01-22 15:14] VITALS: BP 85/40
[2018-01-22 19:53] LABS: APPEARANCE CLEAR (CLEAR); BILIRUBIN NEGATIVE (NEGATIVE); COLOR YELLOW (YELLOW); GLUCOSE NEGATIVE (NEGATIVE); KETONE NEGATIVE (NEGATIVE); NITRITE NEGATIVE (NEGATIVE); PROTEIN NEGATIVE (NEGATIVE); SPECIFIC GRAVITY 1.015 (1.005-1.020); UROBILINOGEN NORMAL (NORMAL)
[2018-01-22 20:01] VITALS: BP 99/48
[2018-01-23] VITALS (7 sets, daily range): BP systolic 81–109; BP diastolic 24–88
[2018-01-23 05:16] LABS: BASOPHILS 0.2 % (0-2); EOSINOPHILS 3.4 % (0-7); HEMATOCRIT 29.4 % (36.0-48.0); HEMOGLOBIN 9.8 g/dL (12-16); LYMPHOCYTES 26.5 % (15-50); MCH 30.2 pg (26.0-34.0); MCHC 33.3 g/dL (31.0-37.0); MCV 90.7 fL (80.0-100.0); MONOCYTES 5.8 % (2-11); NEUTROPHILS 64.1 % (40-80); PLATELET COUNT 156 10x3/uL (130-400); RBC 3.24 10x6/uL (4.00-5.40); RDW 13.5 % (11.5-14.5); WBC 6.6 10x3/uL (4.8-10.8)
[2018-01-23 05:39] LABS: ALBUMIN 2.7 g/dL (3.4-5.0); ANION GAP 9.2 mmol/L (8-16); BILIRUBIN - TOTAL 0.52 mg/dL (0.2-1.3); CARBON DIOXIDE 34.1 mmol/L (21.0-32.0); CREATININE - SERUM 1.5 mg/dL (0.6-1.3); POTASSIUM - SERUM 3.3 mmol/L (3.5-5.1); PROTEIN - SERUM 6.1 g/dL (6.4-8.2)
[2018-01-23 05:41] LABS: CALCIUM 6.8 mg/dL (8.5-10.1); MAGNESIUM - SERUM 1.4 mg/dL (1.8-2.4)
[2018-01-24 04:16] VITALS: BP 94/44
[2018-01-24 04:51] LABS: BASOPHILS 0.2 % (0-2); EOSINOPHILS 3.1 % (0-7); HEMATOCRIT 29.6 % (36.0-48.0); HEMOGLOBIN 9.8 g/dL (12-16); IMMATURE GRANULOCYTES 0.3 % (0-5); LYMPHOCYTES 20.9 % (15-50); MCH 30.2 pg (26.0-34.0); MCHC 33.1 g/dL (31.0-37.0); MCV 91.4 fL (80.0-100.0); MEAN PLATELET VOLUME 11.1 fL (7.4-10.4); MONOCYTES 5.5 % (2-11); PLATELET COUNT 167 10x3/uL (130-400); RBC 3.24 10x6/uL (4.00-5.40); RDW 13.5 % (11.5-14.5); WBC 6.1 10x3/uL (4.8-10.8)
[2018-01-24 05:09] LABS: ALBUMIN 2.5 g/dL (3.4-5.0); ANION GAP 8.1 mmol/L (8-16); BILIRUBIN - TOTAL 0.37 mg/dL (0.2-1.3); CALCIUM 7.7 mg/dL (8.5-10.1); CARBON DIOXIDE 33.8 mmol/L (21.0-32.0); CREATININE - SERUM 1.2 mg/dL (0.6-1.3); MAGNESIUM - SERUM 1.7 mg/dL (1.8-2.4); POTASSIUM - SERUM 3.9 mmol/L (3.5-5.1); PROTEIN - SERUM 5.8 g/dL (6.4-8.2)
[2018-01-24 07:49] VITALS: BP 100/50
[2018-01-24 11:03] VITALS: BP 116/47
[2018-01-24 20:00] VITALS: BP 94/38
[2018-01-25 04:17] VITALS: BP 118/79; BP 119/60
[2018-01-25 05:49] LABS: BASOPHILS 0 % (0-2); EOSINOPHILS 0 % (0-7); HEMATOCRIT 30.6 % (36.0-48.0); HEMOGLOBIN 10.2 g/dL (12-16); IMMATURE GRANULOCYTES 0.5 % (0-5); LYMPHOCYTES 6.3 % (15-50); MCH 30.4 pg (26.0-34.0); MCHC 33.3 g/dL (31.0-37.0); MCV 91.1 fL (80.0-100.0); MONOCYTES 1.8 % (2-11); NEUTROPHILS 91.4 % (40-80); PLATELET COUNT 199 10x3/uL (130-400); RBC 3.36 10x6/uL (4.00-5.40); RDW 13.3 % (11.5-14.5)
[2018-01-25 05:53] LABS: ALBUMIN 2.7 g/dL (3.4-5.0); ANION GAP 7.4 mmol/L (8-16); BILIRUBIN - TOTAL 0.31 mg/dL (0.2-1.3); CALCIUM 8.1 mg/dL (8.5-10.1); CARBON DIOXIDE 29.4 mmol/L (21.0-32.0); CREATININE - SERUM 1.3 mg/dL (0.6-1.3); MAGNESIUM - SERUM 1.7 mg/dL (1.8-2.4); PROTEIN - SERUM 6.4 g/dL (6.4-8.2)
[2018-01-25 06:11] LABS: POTASSIUM - SERUM 4.8 mmol/L (3.5-5.1); WBC 8.5 10x3/uL (4.8-10.8)
[2018-01-25 07:47] VITALS: BP 99/41
[2018-01-25 11:00] VITALS: BP 105/51
[2018-01-25 20:00] VITALS: BP 168/72
[2018-01-26 00:20] VITALS: BP 153/71
[2018-01-26 04:00] VITALS: BP 117/63
[2018-01-26 05:39] LABS: BASOPHILS 0 % (0-2); EOSINOPHILS 0.1 % (0-7); HEMATOCRIT 32.2 % (36.0-48.0); HEMOGLOBIN 10.4 g/dL (12-16); IMMATURE GRANULOCYTES 0.2 % (0-5); LYMPHOCYTES 7.6 % (15-50); MCH 30.1 pg (26.0-34.0); MCHC 32.3 g/dL (31.0-37.0); MEAN PLATELET VOLUME 10.6 fL (7.4-10.4); MONOCYTES 3.1 % (2-11); PLATELET COUNT 184 10x3/uL (130-400); RBC 3.46 10x6/uL (4.00-5.40); RDW 13.6 % (11.5-14.5); WBC 9.1 10x3/uL (4.8-10.8)
[2018-01-26 05:40] LABS: MCV 93.1 fL (80.0-100.0)
[2018-01-26 06:16] LABS: ALBUMIN 2.7 g/dL (3.4-5.0); ANION GAP 9.4 mmol/L (8-16); BILIRUBIN - TOTAL 0.27 mg/dL (0.2-1.3); CALCIUM 7.9 mg/dL (8.5-10.1); CARBON DIOXIDE 31.6 mmol/L (21.0-32.0); CREATININE - SERUM 1.3 mg/dL (0.6-1.3); MAGNESIUM - SERUM 1.8 mg/dL (1.8-2.4); PROTEIN - SERUM 6.4 g/dL (6.4-8.2)
[2018-01-26 07:41] VITALS: BP 152/70
[2018-01-26 11:36] VITALS: BP 161/79
[2018-01-26 14:32] VITALS: BP 138/77
[2018-01-26 20:19] VITALS: BP 109/52
[2018-01-27] VITALS: BP 104/42
[2018-01-27 04:00] VITALS: BP 128/56
[2018-01-27 05:39] LABS: BASOPHILS 0.1 % (0-2); EOSINOPHILS 1.5 % (0-7); HEMATOCRIT 30.9 % (36.0-48.0); HEMOGLOBIN 9.9 g/dL (12-16); IMMATURE GRANULOCYTES 0.6 % (0-5); LYMPHOCYTES 25.1 % (15-50); MCH 29.9 pg (26.0-34.0); MCV 93.4 fL (80.0-100.0); MEAN PLATELET VOLUME 10.5 fL (7.4-10.4); MONOCYTES 6.4 % (2-11); NEUTROPHILS 66.3 % (40-80); PLATELET COUNT 158 10x3/uL (130-400); RBC 3.31 10x6/uL (4.00-5.40); RDW 13.4 % (11.5-14.5); WBC 6.9 10x3/uL (4.8-10.8)
[2018-01-27 05:54] LABS: ANION GAP 5.4 mmol/L (8-16); CALCIUM 7.9 mg/dL (8.5-10.1); CREATININE - SERUM 1.3 mg/dL (0.6-1.3); POTASSIUM - SERUM 4.4 mmol/L (3.5-5.1)
[2018-01-27 08:06] VITALS: BP 126/64
[2018-01-27] MEDS ORDERED: CARAFATE1 G PO (09:57)
[2018-01-27] MEDS ORDERED: PROTONIX40 MG PO (09:57)
[2018-01-27] MEDS ORDERED: REGLAN10 MG PO (09:58)
== END 2018-01-27 13:17 | disposition home or self-care (01) | DRG 287 ==
LOC: D.ER 18:20 → OBSVTIME 23:18 → D.M2 23:18 → D.EDHOLD 23:18 → D.M2 01-21 00:11
PROVIDERS: Family Medicine; Internal Medicine Nephrology
PROC: 05HC33Z Insertion of Infusion Device into Left Basilic Vein, Percutaneous Approach (ICD-10-PCS; principal; 2018-01-22)
PROC: B54NZZA Ultrasonography of Left Upper Extremity Veins, Guidance (ICD-10-PCS; 2018-01-22)
PROC: B2111ZZ Fluoroscopy of Multiple Coronary Arteries using Low Osmolar Contrast (ICD-10-PCS; 2018-01-25)
PROC: B2151ZZ Fluoroscopy of Left Heart using Low Osmolar Contrast (ICD-10-PCS; 2018-01-25)
PROC: 4A023N7 Measurement of Cardiac Sampling and Pressure, Left Heart, Percutaneous Approach (ICD-10-PCS; 2018-01-25)
PROC: 0DJ08ZZ Inspection of Upper Intestinal Tract, Via Natural or Artificial Opening Endoscopic (ICD-10-PCS; 2018-01-25)
PROC: 0DJ08ZZ Inspection of Upper Intestinal Tract, Via Natural or Artificial Opening Endoscopic (ICD-10-PCS; 2018-01-26)
DX: R07.89 Other chest pain (principal); N17.9 Acute kidney failure, unspecified; E83.51 Hypocalcemia; E87.6 Hypokalemia; D64.9 Anemia, unspecified; E11.9 Type 2 diabetes mellitus without complications; I10 Essential (primary) hypertension; I25.10 Atherosclerotic heart disease of native coronary artery without angina pectoris; I48.91 Unspecified atrial fibrillation; K59.8 Other specified functional intestinal disorders; G89.29 Other chronic pain; J44.9 Chronic obstructive pulmonary disease, unspecified; Z86.711 Personal history of pulmonary embolism

== ENCOUNTER → 2018-03-17 18:20 | Outpatient (CLI) | payer OTHER ==
[2018-01-21 08:53] VITALS: BMI 36.6
[~2018-03-17 18:20] MED LIST changes: +BUTALB-APAP-CA1 EACH PO; +CARAFATE1 G PO; +ELIQUIS5 MG PO; +REGLAN10 MG PO
== END | disposition home or self-care (01) ==
LOC: D.MAMMO 16:00
DX: Z12.31 Encounter for screening mammogram for malignant neoplasm of breast (principal)

== ENCOUNTER 2018-12-28 12:18 | Inpatient (IN) | payer OTHER ==
[~2018-12-28] VITALS: Ht 177.8 cm; Wt 127.0 kg
[2018-12-28 13:24] LABS: HEMATOCRIT 32.9 % (36.0-48.0); HEMOGLOBIN 10.8 g/dL (12-16); LYMPHOCYTES 17.9 % (15-50); MCH 29.7 pg (26.0-34.0); MCHC 32.8 g/dL (31.0-37.0); MCV 90.4 fL (80.0-100.0); MEAN PLATELET VOLUME 10.6 fL (7.4-10.4); NEUTROPHILS 77.4 % (40-80); RBC 3.64 10x6/uL (4.00-5.40); RDW 13.9 % (11.5-14.5); WBC 6.7 10x3/uL (4.8-10.8)
[2018-12-28 13:32] LABS: ALKALINE PHOSPHATASE 116 U/L (46-116); ALT (SGPT) 10 U/L (10-68); AMYLASE - SERUM 14 U/L (25-115); CALC OSMOLALITY 284 mosm/kg (275-300); CARBON DIOXIDE 36.3 mmol/L (21.0-32.0); CHLORIDE - SERUM 98 mmol/L (98-107); CREATININE - SERUM 1.9 mg/dL (0.6-1.3); GLUCOSE 152 mg/dL (74-106); LIPASE 60 U/L (73-393); PLATELET COUNT 200 10x3/uL (130-400); POTASSIUM - SERUM 3.4 mmol/L (3.5-5.1); PROTEIN - SERUM 7.1 g/dL (6.4-8.2); SODIUM 141 mmol/L (136-145); UREA NITROGEN 14 mg/dL (7-18); eGFR NON AFRICAN AMERICAN 28 mL/min (90-120)
[2018-12-28 13:34] LABS: CALCIUM 5.3 mg/dL (8.5-10.1); TROPONIN-I < 0.017 ng/mL (0.000-0.060)
--- NOTE | 2018-12-28 14:00 | NUR ---
PT ARRIVED TO UNIT VIA STRETCHER ASSISTED BY ER STAFF.
[2018-12-28 14:01] VITALS: BP 136/80; BMI 40.2
[2018-12-28 15:54] LABS: PHOSPHOROUS 4.9 mg/dL (2.5-4.9)
[2018-12-28 15:55] LABS: MAGNESIUM - SERUM 0.5 mg/dL (1.8-2.4)
--- NOTE | 2018-12-28 19:43 | NUR ---
DRESSINGS HAS JUST BEEN CHANGED WHEN I WENT TO DO PATIENT. ROSA ROYAL APRN WAS THERE AND SAID DO IN AM. DANIELA BERRY
--- NOTE | 2018-12-28 19:56 | NUR ---
EVENING ROUNDS COMPLETED. VSS, AAOX4, NO S/S OF DISTRESS. BILAT LOWER EXTREMITIES APPEARS RED AND SWOLLEN. KERLIX BANDAGE CLEAN AND INTACT. PT DENIES PAIN. IV CALCIUM GLUCONATE INFUSING @100MLS/HR. TELEMETRY ON. R.UPPER ARM MIDLINE INTACT. PT C/O OF MILD ABD CRAMPS STATES SHE WILL NOTIFY ME IF IT GETS ANY WORSE. BUT SHE IS "FINE" FOR NOW. PT DENIES ANY FURTHER NEEDS AT THIS TIME. WILL CTM. CL WITHIN REACH, BED IN LOW, SR UP X2.
[2018-12-28 20:00] VITALS: BP 127/57
[2018-12-29] VITALS (7 sets, daily range): BP systolic 105–143; BP diastolic 46–79; Ht 177.8 cm; Wt 127.0 kg
[2018-12-29 06:16] LABS: BASOPHILS 0.2 % (0-2); EOSINOPHILS 1.7 % (0-7); HEMATOCRIT 28.9 % (36.0-48.0); HEMOGLOBIN 9.4 g/dL (12-16); IMMATURE GRANULOCYTES 0.2 % (0-5); LYMPHOCYTES 24.8 % (15-50); MCH 29.5 pg (26.0-34.0); MCHC 32.5 g/dL (31.0-37.0); MCV 90.6 fL (80.0-100.0); MEAN PLATELET VOLUME 10.5 fL (7.4-10.4); MONOCYTES 7.4 % (2-11); NEUTROPHILS 65.7 % (40-80); PLATELET COUNT 180 10x3/uL (130-400); RBC 3.19 10x6/uL (4.00-5.40); RDW 14.3 % (11.5-14.5); WBC 6.3 10x3/uL (4.8-10.8)
[2018-12-29 06:59] LABS: ALBUMIN 2.7 g/dL (3.4-5.0); ALKALINE PHOSPHATASE 102 U/L (46-116); BILIRUBIN - TOTAL 0.87 mg/dL (0.2-1.3); CALC OSMOLALITY 288 mosm/kg (275-300); CARBON DIOXIDE 36.7 mmol/L (21.0-32.0); CHLORIDE - SERUM 102 mmol/L (98-107); CREATINE KINASE 444 UL (21-215); CREATININE - SERUM 1.7 mg/dL (0.6-1.3); GLUCOSE 131 mg/dL (74-106); PHOSPHOROUS 5.1 mg/dL (2.5-4.9); POTASSIUM - SERUM 3.2 mmol/L (3.5-5.1); PROTEIN - SERUM 6.4 g/dL (6.4-8.2); SODIUM 144 mmol/L (136-145); THYROID STIMULATING HORMONE 0.31 uIU/mL (0.36-3.74); UREA NITROGEN 12 mg/dL (7-18); eGFR NON AFRICAN AMERICAN 32 mL/min (90-120)
[2018-12-29 07:09] LABS: ALT (SGPT) 13 U/L (10-68); CALCIUM 6.1 mg/dL (8.5-10.1); MAGNESIUM - SERUM 0.9 mg/dL (1.8-2.4)
[2018-12-29 07:30] LABS: CKMB 0.7 U/L (0.0-3.6)
--- NOTE | 2018-12-29 08:00 | NUR ---
PT RESTING ON SIDE OF BED, SHIFT ASSESSMENT PERFORMED. DENIES ANY NEEDS AT THIS TIME, WILL CONT TO FOLLOW POC
--- NOTE | 2018-12-29 12:30 | NUR ---
PT RESTING IN BED, DENIES ANY NEEDS AT THIS TIME, WILL CONT TO FOLLOW POC
[2018-12-29 14:41] LABS: APPEARANCE CLEAR (CLEAR); BACTERIA MANY /hpf (NONE SEEN); BILIRUBIN NEGATIVE (NEGATIVE); COLOR STRAW (YELLOW); GLUCOSE NEGATIVE (NEGATIVE); KETONE NEGATIVE (NEGATIVE); NITRITE NEGATIVE (NEGATIVE); PROTEIN NEGATIVE (NEGATIVE)
[2018-12-29 14:42] LABS: EPITHELIAL CELLS RARE /hpf (0-5); WHITE CELLS - URINE 0-5 /hpf (0-5)
--- NOTE | 2018-12-29 17:27 | NUR ---
ULTRASOUND JUST LEFT FROM PT ROOM, NURSE PERFORMED WOUND CARE TO BLE. PT TOLERATED WELL. DENIES ANY FURTHER NEEDS AT THIS TIME. WILL CONT TO FOLLOW POC
--- NOTE | 2018-12-29 20:19 | MORECARE ---
CASE MANAGEMENT DISCHARGE SUMMARY PATIENT: SHAGGY AGUAYO ANN UNIT: [id number] ADM DATE: 12/28/18 AGE: 63 : 59 SEX: F ROOM/BED: D.1206 AUTHOR: ARTEM PRIETO PHYSICIAN: REFERRING PHYSICIAN: CONSUELO FONSECA MD DATE OF SERVICE: 12/29/18 Discharge Plan Patient Name: SHAGGY AGUAYO Facility: [facility]:[place] : 1955 Planned Disposition: Home with Home Health Anticipated Discharge Date: Discharge Date: Expected LOS: Initial Reviewer: [email or web address] Initial Review Date: 12/29/2018 Generated: 12/29/18 9:19 pm Patient Name: SHAGGY AGUAYO Page [id number] at 2019 All edits/amendments must be made on the electronic document DICTATION DATE: 12/29/182018 CRISIS INTERVENTION SPECIALIST: ANDREW 12/29/18 2019 RPT#: [id number] DC DATE: STATUS: ADM IN [facility] [address] [place] [address] END OF REPORT
--- NOTE | 2018-12-29 20:26 | MORECARE ---
CASE MANAGEMENT DISCHARGE SUMMARY PATIENT: SHAGGY AGUAYO ANN UNIT: [id number] ADM DATE: 12/28/18 AGE: 63 : 59 SEX: F ROOM/BED: D.1206 AUTHOR: ARTEM PRIETO PHYSICIAN: REFERRING PHYSICIAN: CONSUELO FONSECA MD DATE OF SERVICE: 12/29/18 Discharge Plan Patient Name: SHAGGY AGUAYO Facility: [facility]:[place] : 1955 Planned Disposition: Home with Home Health Anticipated Discharge Date: Discharge Date: Expected LOS: Initial Reviewer: [email or web address] Initial Review Date: 12/29/2018 Generated: 12/29/18 9:25 pm DCPIA - Discharge Planning Initial Assessment Updated by [email or web address]: Katie Arias on 12/29/18 8:22 pm * Is the patient Alert and Oriented? Yes * How many steps to enter\exit or inside your home? ramp * PCP [facility] * [facility] * Preadmission Environment Home with Family * ADLs Independent * Other Equipment W/C, WALKER, CANE, HOME 02 ([employer]), NEBULIZER * List name and contact numbers for known caregivers / representatives who currently or will assist patient after discharge: JAYESH HEARN - [phone] * Verbal permission to speak to the caregivers and representatives has been obtained from the patient. Yes * Community resources currently utilized Home Health * Please name any agencies selected above. [facility] * Additional services required to return to the preadmission environment? No * Can the patient safely return to the preadmission environment? Yes * Has this patient been hospitalized within the prior 30 days at any hospital? No Last DP export: 12/29/18 7:19 p Patient Name: SHAGGY AGUAYO Page 14578 at 2025 All edits/amendments must be made on the electronic document DICTATION DATE: 12/29/182024 HYDRAULIC DREDGE OPERATOR: ANDREW 12/29/182024 RPT#: [id number] DC DATE: STATUS: ADM IN [facility] [address] [place] [address] END OF REPORT
--- NOTE | 2018-12-29 20:32 | MORECARE ---
CASE MANAGEMENT DISCHARGE SUMMARY PATIENT: SHAGGY AGUAYO ANN UNIT: [id number] ADM DATE: 12/28/18 AGE: 63 : 59 SEX: F ROOM/BED: D.1206 AUTHOR: ARTEM PRIETO PHYSICIAN: REFERRING PHYSICIAN: CONSUELO FONSECA MD DATE OF SERVICE: 12/29/18 Discharge Plan Patient Name: SHAGGY AGUAYO Facility: [facility]:[place] : 1955 Planned Disposition: Home with Home Health Anticipated Discharge Date: Discharge Date: Expected LOS: Initial Reviewer: [email or web address] Initial Review Date: 12/29/2018 Generated: 12/29/18 9:32 pm Comments DCP- Discharge Planning Updated by [email or web address]: Katie Arias on 12/29/18 7:[address] Patient Name: SHAGGY AGUAYO Admission Status: ER Accout number: [id number] Admission Date: 12-28-2018 : 1955 Admission Diagnosis:HYPOCALCEMIA Attending: CONSUELO MACIAS Current LOS: 1 Anticipated DC Date: Planned Disposition: Home with Home Health Primary Insurance: [employer] [facility] Discharge Planning Comments: CM met with patient to complete initial dc planning assessment. CM educated patient on the CM role and verbal consent given by patient to complete assessment. Patient lives at home with her grandson where she is independent with her care. At discharge patient plans to return home and feels this is a safe discharge. CM discussed availability of home health, rehab services, and medical equipment. 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 Patient has a nebulizer and home o2 ( [employer] ) walker, w/c, cane. Patient states that she has [facility] and plans to resume care with them upon discharge. Patient states that she meets with her [employer] telephonic case manager every 2 weeks. Patient denied known discharge needs at this time. CM will continue to follow and will assist as needed with dc plans/needs. Chemical Laboratory Scientist: Katie Arias DCPIA - Discharge Planning Initial Assessment Updated by [email or web address]: Katie Arias on 12/29/18 8:22 pm * Is the patient Alert and Oriented? Yes * How many steps to enter\exit or inside your home? ramp * PCP CARMEN * Pharmacy [facility] * Preadmission Environment Home with Family * ADLs Independent * Other Equipment W/C, WALKER, CANE, HOME 02 ([employer]), NEBULIZER * List name and contact numbers for known caregivers / representatives who currently or will assist patient after discharge: JAYESH HEARN - [phone] * Verbal permission to speak to the caregivers and representatives has been obtained from the patient. Yes * Community resources currently utilized Home Health * Please name any agencies selected above. [facility] * Additional services required to return to the preadmission environment? No * Can the patient safely return to the preadmission environment? Yes * Has this patient been hospitalized within the prior 30 days at any hospital? No Coverage Notice Reviewer: [email or web address] Xavier Arias Notice Issued Date-Time: 12/29/2018 20:27 Notice Type: Patient Choice Letter Notice Delivered To: Patient Relationship to Patient: Wax Ball Molder Name: Delivery Method: - Stephanie Days: Prior Verbal Notification: Recipient Understood Notice: Yes Recipient Signature: Yes Med Rec Note Co-signed by Attending: Coverage Notice Comment: CHERRIE to resume care with [facility] Last DP export: 12/29/18 7:26 p Patient Name: SHAGGY AGUAYO Page 32218 at 2031 All edits/amendments must be made on the electronic document DICTATION DATE: 12/29/182031 ELECTRICAL ENGINEERING TECHNOLOGIST: ANDREW 12/29/182031 RPT#: [id number] DC DATE: STATUS: ADM IN [facility] [address] [place] [address] END OF REPORT
[2018-12-30] VITALS: BP 132/73
[2018-12-30 04:00] VITALS: BP 144/59
[2018-12-30 06:27] LABS: BASOPHILS 0.1 % (0-2); HEMATOCRIT 32.7 % (36.0-48.0); HEMOGLOBIN 10.6 g/dL (12-16); IMMATURE GRANULOCYTES 0.3 % (0-5); LYMPHOCYTES 18.1 % (15-50); MCH 29.4 pg (26.0-34.0); MCHC 32.4 g/dL (31.0-37.0); MCV 90.8 fL (80.0-100.0); MONOCYTES 4.3 % (2-11); NEUTROPHILS 75.2 % (40-80); PLATELET COUNT 204 10x3/uL (130-400); RDW 14.1 % (11.5-14.5)
[2018-12-30 06:43] LABS: ALBUMIN 2.8 g/dL (3.4-5.0); ANION GAP 9.3 mmol/L (8-16); BILIRUBIN - TOTAL 0.63 mg/dL (0.2-1.3); CARBON DIOXIDE 33.7 mmol/L (21.0-32.0); CREATININE - SERUM 1.5 mg/dL (0.6-1.3); MAGNESIUM - SERUM 1.8 mg/dL (1.8-2.4); PHOSPHOROUS 4.7 mg/dL (2.5-4.9); PROTEIN - SERUM 6.6 g/dL (6.4-8.2)
[2018-12-30 06:44] LABS: CALCIUM 7.8 mg/dL (8.5-10.1)
--- NOTE | 2018-12-30 08:39 | NUR ---
PATIENT AROUSED TO VOICE BUT DROWSEY AND TOLERATED CL DIET WITH ASSISTANCE. DENIES PAIN AND IS ORIENTED. CL IN REACH
--- NOTE | 2018-12-30 08:46 | NUR ---
PATIENT GIVEN ZOFRAN FOR NAUSEA AND REQUEST TO HOLD PO MEDS UNTIL NAUSE IS RESOLVED. NO OTHER NEEDS VOICED.
[2018-12-30 09:35] VITALS: BP 142/68
--- NOTE | 2018-12-30 09:49 | NUR ---
PATIENT CONTINUES TO REFUSE PO MEDICAIONS DUE TO NAUSEA
--- NOTE | 2018-12-30 11:09 | NUR ---
WOUND CARE BLE VENOUS STASIS ULCERS - - REMOVE AND DISCARD DRESSINGS. - WASH WOUNDS WITH WOUND CLEANSER AND PAT DRY. - COVER WOUNDS WITH NONADHERENT DRESSING. - WRAP FEET AND LEGS WITH KERLIX. - WRAP OVER KERLIX WITH COBAN. WOUND CARE TO BE PROVIDED EVERY OTHER DAY, AND WHEN SOILED.
--- NOTE | 2018-12-30 17:02 | NUR ---
PATIENT DECLINES WOUND CARE AT THIS TIME STATING WOUND CARE IS NORMALY ONLY DONE TWICE WEEKLY PER WOUND CLINIC
[2018-12-30 20:00] VITALS: BP 155/81
[2018-12-31] VITALS: BP 129/66
[2018-12-31 04:11] VITALS: BP 95/46
[2018-12-31 06:41] LABS: BASOPHILS 0.2 % (0-2); EOSINOPHILS 3.4 % (0-7); HEMATOCRIT 32.8 % (36.0-48.0); HEMOGLOBIN 10.6 g/dL (12-16); IMMATURE GRANULOCYTES 0.5 % (0-5); LYMPHOCYTES 17.6 % (15-50); MCH 29.6 pg (26.0-34.0); MCHC 32.3 g/dL (31.0-37.0); MCV 91.6 fL (80.0-100.0); MEAN PLATELET VOLUME 10.9 fL (7.4-10.4); MONOCYTES 6.2 % (2-11); NEUTROPHILS 72.1 % (40-80); PLATELET COUNT 222 10x3/uL (130-400); RBC 3.58 10x6/uL (4.00-5.40); RDW 13.9 % (11.5-14.5); WBC 8.5 10x3/uL (4.8-10.8)
[2018-12-31 07:02] LABS: ALBUMIN 2.8 g/dL (3.4-5.0); BILIRUBIN - TOTAL 0.61 mg/dL (0.2-1.3); CALCIUM 9.1 mg/dL (8.5-10.1); CARBON DIOXIDE 33.1 mmol/L (21.0-32.0); CREATININE - SERUM 1.5 mg/dL (0.6-1.3); MAGNESIUM - SERUM 1.7 mg/dL (1.8-2.4); PHOSPHOROUS 3.8 mg/dL (2.5-4.9); PROTEIN - SERUM 6.8 g/dL (6.4-8.2)
[2018-12-31 07:06] LABS: ANION GAP 8.8 mmol/L (8-16); POTASSIUM - SERUM 4.9 mmol/L (3.5-5.1)
--- NOTE | 2018-12-31 08:05 | NUR ---
REC'D PT SITTING IN BED RESP EVEN AND NONLABORED PT DENIES NEEDS AT THIS TIME IV TO RIGHT UPPER ARM MIDLINE IS PATENT AND INTACT AT THIS TIME. LUNG SOUNDS CLEAR HRR BS+X4 NO EDEMA NOTED AT THIS TIME. SRX2 BED AT LOWEST SETTING AND LOCKED CALL LIGHT WITHIN REACH WILL CONTINUE TO MONITOR
[2018-12-31 09:34] VITALS: BP 124/76
[2018-12-31 14:03] VITALS: BP 114/64
--- NOTE | 2018-12-31 19:49 | NUR ---
PATIENT RESTING IN BED WITH NO S/S OF DISTRESS AND DENIES NEEDS AT THIS TIME. BED IN LOWEST POSITION AND CALL LIGHT WITHIN REACH. ENCOURAGED THE PATIENT TO CALL IF SHE HAS NEEDS. WILL CONTINUE TO MONITOR.
[2018-12-31 20:00] VITALS: BP 149/71
[2019-01-01] VITALS: BP 152/71
[2019-01-01 04:00] VITALS: BP 133/80
[2019-01-01 06:29] LABS: BASOPHILS 0.2 % (0-2); EOSINOPHILS 3.3 % (0-7); HEMATOCRIT 36.4 % (36.0-48.0); IMMATURE GRANULOCYTES 0.3 % (0-5); MCH 29.8 pg (26.0-34.0); MCV 90.3 fL (80.0-100.0); MONOCYTES 7.3 % (2-11); NEUTROPHILS 69.9 % (40-80); PLATELET COUNT 266 10x3/uL (130-400); RBC 4.03 10x6/uL (4.00-5.40); WBC 9.4 10x3/uL (4.8-10.8)
[2019-01-01 06:50] LABS: ALBUMIN 3.2 g/dL (3.4-5.0); ANION GAP 8.8 mmol/L (8-16); BILIRUBIN - TOTAL 0.75 mg/dL (0.2-1.3); CALCIUM 9.5 mg/dL (8.5-10.1); CARBON DIOXIDE 36.6 mmol/L (21.0-32.0); CREATININE - SERUM 1.6 mg/dL (0.6-1.3); MAGNESIUM - SERUM 1.6 mg/dL (1.8-2.4); POTASSIUM - SERUM 4.4 mmol/L (3.5-5.1); PROTEIN - SERUM 7.4 g/dL (6.4-8.2)
[2019-01-01 06:54] LABS: PHOSPHOROUS 4.8 mg/dL (2.5-4.9)
--- NOTE | 2019-01-01 08:05 | NUR ---
PT LYING IN BED RESP EVEN AND NONLABORED PT DENIES NEEDS AT THIS TIME IV TO RIGHT UPPER ARM MIDLINE PATENT AND INTACT AT THIS TIME. SRX2 BED AT LOWEST SETTING CALL LIGHT WITHIN REACH WILL CONTINUE TO MONITOR
[2019-01-01 08:40] VITALS: BP 112/64
[2019-01-01] MEDS ORDERED: TUMS X-STR300 MG PO (15:03)
--- NOTE | 2019-01-01 15:30 | MORECARE ---
CASE MANAGEMENT DISCHARGE SUMMARY PATIENT: SHAGGY AGUAYO ANN UNIT: [id number] ADM DATE: 12/28/18 AGE: 63 : 59 SEX: F ROOM/BED: D.1206 AUTHOR: ARTEM PRIETO PHYSICIAN: REFERRING PHYSICIAN: CONSUELO FONSECA MD DATE OF SERVICE: 01/01/19 Discharge Plan Patient Name: SHAGGY AGUAYO Facility: [facility]:[place] : 1955 Planned Disposition: Home with Home Health Anticipated Discharge Date: Discharge Date: Expected LOS: Initial Reviewer: [email or web address] Initial Review Date: 12/29/2018 Generated: 01/01/19 4:29 pm Comments DCP- Discharge Planning Updated by [id number]: Yudith Chawla on 01/01/19 2:[address] RESUMPTION ORDERS FOR [facility] SENT TO [facility] TO NOTIFY OF DC DCP- Discharge Planning Updated by [id number]: Katie Arias on 12/29/18 7:[address] Patient Name: SHAGGY AGUAYO Admission Status: ER Accout number: [id number] Admission Date: 12-28-2018 : 1955 Admission Diagnosis:HYPOCALCEMIA Attending: CONSUELO MACIAS Current LOS: 1 Anticipated DC Date: Planned Disposition: Home with Home Health Primary Insurance: [email or web address] PFFS Discharge Planning Comments: CM met with patient to complete initial dc planning assessment. CM educated patient on the CM role and verbal consent given by patient to complete assessment. Patient lives at home with her grandson where she is independent with her care. At discharge patient plans to return home and feels this is a safe discharge. CM discussed availability of home health, rehab services, and medical equipment. Her grandson will be her airport driver home. Patient has a nebulizer and home o2 ( [employer] ) walker, w/c, cane. Patient states that she has [facility] and plans to resume care with them upon discharge. Patient states that she meets with her [employer] manager case every 2 weeks. Patient denied known discharge needs at this time. CM will continue to follow and will assist as needed with dc plans/needs. Bank Teller: Katie Arias DCPIA - Discharge Planning Initial Assessment Updated by [id number]: Katie Arias on 12/29/18 8:22 pm * Is the patient Alert and Oriented? Yes * How many steps to enter\exit or inside your home? ramp * PCP CARMEN * Pharmacy [facility] * Preadmission Environment Home with Family * ADLs Independent * Other Equipment W/C, WALKER, CANE, HOME 02 ([employer]), NEBULIZER * List name and contact numbers for known caregivers / representatives who currently or will assist patient after discharge: JAYESH HEARN [phone] * Verbal permission to speak to the caregivers and representatives has been obtained from the patient. Yes * Community resources currently utilized Home Health * Please name any agencies selected above. [facility] * Additional services required to return to the preadmission environment? No * Can the patient safely return to the preadmission environment? Yes * Has this patient been hospitalized within the prior 30 days at any hospital? No Coverage Notice Reviewer: [id number] - Katie Arias Notice Issued Date-Time: 12/29/2018 20:27 Notice Type: Patient Choice Letter Notice Delivered To: Patient Relationship to Patient: Cable Hooker Name: Delivery Method: - Stephanie Days: Prior Verbal Notification: Recipient Understood Notice: Yes Recipient Signature: Yes Med Rec Note Co-signed by Attending: Coverage Notice Comment: CHERRIE to resume care with Pedrito ARNETT Last DP export: 12/29/18 7:32 p Patient Name: SHAGGY AGUAYO Page [phone] at 1530 All edits/amendments must be made on the electronic document DICTATION DATE: 01/01/19 152 COMPUTER ENGINEERING PROFESSOR: ANDREW 01/01/19 1529 RPT#: [id number] DC DATE: STATUS: ADM IN [facility] [address] [place] [address] END OF REPORT
--- NOTE | 2019-01-01 16:34 | NUR ---
RIGHT UPPER ARM MIDLINE REMOVED WITH 13CM CATHETER THAT IS INTACT. PT GIVEN DISCHARGE INSTRUCTIONS, PT VERBALIZES UNDERSTANDING AT THIS TIME.
--- NOTE | 2019-01-01 17:17 | NUR ---
PT TAKEN VIA WHEELCHAIR VIA PRIVATE VEHICLE AT THIS TIME
--- NOTE | 2019-01-02 09:29 | MORECARE ---
CASE MANAGEMENT DISCHARGE SUMMARY PATIENT: SHAGGY AGUAYO ANN UNIT: [id number] ADM DATE: 12/28/18 AGE: 63 : 59 SEX: F ROOM/BED: D.1206 AUTHOR: ARTEM PRIETO PHYSICIAN: REFERRING PHYSICIAN: CONSUELO FONSECA MD DATE OF SERVICE: 01/02/19 Discharge Plan Patient Name: SHAGGY AGUAYO Facility: [facility]:[place] : 1955 Planned Disposition: Home with Home Health Anticipated Discharge Date: Discharge Date: 01/01/2019 Expected LOS: Initial Reviewer: [id number] Initial Review Date: 12/29/2018 Generated: 01/02/19 10:29 am Comments DCP- Discharge Planning Updated by [id number]: Yudith Chawla on 01/01/19 2:[address] RESUMPTION ORDERS FOR [facility] SENT TO [facility] TO NOTIFY OF DC DCP- Discharge Planning Updated by [id number]: Katie Arias on 12/29/18 7:[address] Patient Name: SHAGGY AGUAYO Admission Status: ER Accout number: [id number] Admission Date: 12-28-2018 : 1955 Admission Diagnosis:HYPOCALCEMIA Attending: CONSUELO MACIAS Current LOS: 1 Anticipated DC Date: Planned Disposition: Home with Home Health Primary Insurance: [employer] PFFS Discharge Planning Comments: CM met with patient to complete initial dc planning assessment. CM educated patient on the CM role and verbal consent given by patient to complete assessment. Patient lives at home with her grandson where she is independent with her care. At discharge patient plans to return home and feels this is a safe discharge. CM discussed availability of home health, rehab services, and medical equipment. Her grandson will be her industrial tractor driver home. Patient has a nebulizer and home o2 ( [employer] ) walker, w/c, cane. Patient states that she has [facility] and plans to resume care with them upon discharge. Patient states that she meets with her [employer] upper caser every 2 weeks. Patient denied known discharge needs at this time. CM will continue to follow and will assist as needed with dc plans/needs. Security Threat Analyst: Katie Arias DCPIA - Discharge Planning Initial Assessment Updated by [id number]: Katie Arias on 12/29/18 8:22 pm * Is the patient Alert and Oriented? Yes * How many steps to enter\exit or inside your home? ramp * PCP CARMEN * Pharmacy [facility] * Preadmission Environment Home with Family * ADLs Independent * Other Equipment W/C, WALKER, CANE, HOME 02 ([employer]), NEBULIZER * List name and contact numbers for known caregivers / representatives who currently or will assist patient after discharge: JAYESH HEARN [phone] * Verbal permission to speak to the caregivers and representatives has been obtained from the patient. Yes * Community resources currently utilized Home Health * Please name any agencies selected above. [facility] * Additional services required to return to the preadmission environment? No * Can the patient safely return to the preadmission environment? Yes * Has this patient been hospitalized within the prior 30 days at any hospital? No Coverage Notice Reviewer: [id number] - Katie Arias Notice Issued Date-Time: 12/29/2018 20:27 Notice Type: Patient Choice Letter Notice Delivered To: Patient Relationship to Patient: Funder Name: Delivery Method: - Stephanie Days: Prior Verbal Notification: Recipient Understood Notice: Yes Recipient Signature: Yes Med Rec Note Co-signed by Attending: Coverage Notice Comment: CHERRIE to resume care with Pedrito ARNETT Last DP export: 01/01/19 2:30 p Patient Name: SHAGGY AGUAYO Page [phone] at 0929 All edits/amendments must be made on the electronic document DICTATION DATE: 01/02/19928 IT SERVICE TECHNICIAN: ANDREW 01/02/19928 RPT#: [id number] DC DATE:01/01/19 STATUS: DIS IN [facility] [address] [place] [address] END OF REPORT
== END 2019-01-01 17:18 | disposition home health service (06) | DRG 641 ==
LOC: D.ER 12:18 → D.M3 13:05
PROVIDERS: Family Medicine; Internal Medicine Nephrology; ADMIT Family Medicine; ATTEND Family Medicine
PROC: 05HB33Z Insertion of Infusion Device into Right Basilic Vein, Percutaneous Approach (ICD-10-PCS; principal; 2018-12-28)
PROC: B54MZZA Ultrasonography of Right Upper Extremity Veins, Guidance (ICD-10-PCS; 2018-12-28)
DX: E83.51 Hypocalcemia (principal); N17.9 Acute kidney failure, unspecified; I50.30 Unspecified diastolic (congestive) heart failure; I25.10 Atherosclerotic heart disease of native coronary artery without angina pectoris; E11.51 Type 2 diabetes mellitus with diabetic peripheral angiopathy without gangrene; J44.9 Chronic obstructive pulmonary disease, unspecified; Z95.0 Presence of cardiac pacemaker; D64.9 Anemia, unspecified; E88.09 Other disorders of plasma-protein metabolism, not elsewhere classified; G89.4 Chronic pain syndrome; F32.9 Major depressive disorder, single episode, unspecified; E03.9 Hypothyroidism, unspecified; E11.40 Type 2 diabetes mellitus with diabetic neuropathy, unspecified; I11.0 Hypertensive heart disease with heart failure; K21.9 Gastro-esophageal reflux disease without esophagitis

== ENCOUNTER 2019-02-09 11:06 | Inpatient (IN) | payer OTHER ==
[~2019-02-09] VITALS: Ht 170.2 cm; Wt 127.0 kg
[~2019-02-09 11:06] MED LIST changes: +TUMS X-STR300 MG PO
[2019-02-09 12:14] LABS: BASOPHILS 0.2 % (0-2); EOSINOPHILS 2.1 % (0-7); HEMATOCRIT 27.5 % (36.0-48.0); HEMOGLOBIN 8.9 g/dL (12-16); IMMATURE GRANULOCYTES 0.3 % (0-5); LYMPHOCYTES 15.8 % (15-50); MCH 29.4 pg (26.0-34.0); MCHC 32.4 g/dL (31.0-37.0); MCV 90.8 fL (80.0-100.0); MEAN PLATELET VOLUME 10.1 fL (7.4-10.4); NEUTROPHILS 73.6 % (40-80); RBC 3.03 10x6/uL (4.00-5.40); RDW 14.7 % (11.5-14.5); WBC 6.6 10x3/uL (4.8-10.8)
[2019-02-09 12:15] LABS: PLATELET COUNT 200 10x3/uL (130-400)
[2019-02-09 12:22] LABS: ALBUMIN 2.8 g/dL (3.4-5.0); ANION GAP 11.8 mmol/L (8-16); BILIRUBIN - TOTAL 0.52 mg/dL (0.2-1.3); CREATININE - SERUM 1.7 mg/dL (0.6-1.3); PHOSPHOROUS 4.9 mg/dL (2.5-4.9); POTASSIUM - SERUM 3.8 mmol/L (3.5-5.1); PROTEIN - SERUM 6.2 g/dL (6.4-8.2)
[2019-02-09 12:35] LABS: CALCIUM 5.8 mg/dL (8.5-10.1); MAGNESIUM - SERUM 0.6 mg/dL (1.8-2.4)
[2019-02-09 16:56] LABS: % SATURATION 93 % (15-55); IRON 29 ug/dl (35-150); TOTAL IRON BIND CAPACITY 31 ug/dl (260-445)
[2019-02-09 16:58] LABS: UNSAT IRON BIND CAPACITY 2 ug/dl (150-375)
[2019-02-09 17:33] VITALS: BP 130/68; BMI 29.0
[2019-02-09 18:19] LABS: APPEARANCE CLEAR (CLEAR); BILIRUBIN NEGATIVE (NEGATIVE); COLOR STRAW (YELLOW); GLUCOSE NEGATIVE (NEGATIVE); KETONE NEGATIVE (NEGATIVE); NITRITE NEGATIVE (NEGATIVE); PROTEIN NEGATIVE (NEGATIVE); SPECIFIC GRAVITY 1.005 (1.005-1.020); UROBILINOGEN NORMAL (NORMAL)
[2019-02-09 18:23] LABS: CREATININE - URINE 38.8 mg/dL (30-125); NA - URINE 34 MMOL/L (20-110)
[2019-02-09 18:25] LABS: PRO/CRE RATIO URINE 0.2 mg/g; PROTEIN - URINE < 6.0 mg/dL (0.0-11.9)
[2019-02-09 20:00] VITALS: BP 112/58
--- NOTE | 2019-02-09 22:02 | NUR ---
HS MEDS GIVEN WITH FRESH ICE WATER. PT DENIES PAIN OR NEEDS, BED LOW, CL IN REACH.
[2019-02-10] VITALS (7 sets, daily range): BP systolic 99–157; BP diastolic 50–75
--- NOTE | 2019-02-10 02:22 | NUR ---
RESTING WITH EYES CLOSED, RESPERATIONS EVEN, NO S/S DISTRESS NOTED.
[2019-02-10 05:22] LABS: BASOPHILS 0.2 % (0-2); HEMATOCRIT 25.7 % (36.0-48.0); HEMOGLOBIN 8.4 g/dL (12-16); IMMATURE GRANULOCYTES 0.2 % (0-5); LYMPHOCYTES 14.5 % (15-50); MCH 29.6 pg (26.0-34.0); MCHC 32.7 g/dL (31.0-37.0); MCV 90.5 fL (80.0-100.0); MEAN PLATELET VOLUME 10.5 fL (7.4-10.4); NEUTROPHILS 76.1 % (40-80); PLATELET COUNT 211 10x3/uL (130-400); RBC 2.84 10x6/uL (4.00-5.40); RDW 14.5 % (11.5-14.5); WBC 6.6 10x3/uL (4.8-10.8)
--- NOTE | 2019-02-10 05:30 | NUR ---
I have reviewed this patient and I concur with the Shift Assessment completed by the Licensed Practical Nurse today this shift.
[2019-02-10 05:44] LABS: % SATURATION 10 % (15-55); IRON 19 ug/dl (35-150); TOTAL IRON BIND CAPACITY 184 ug/dl (260-445); UNSAT IRON BIND CAPACITY 165 ug/dl (150-375)
[2019-02-10 06:11] LABS: ANION GAP 10.2 mmol/L (8-16); CARBON DIOXIDE 33.9 mmol/L (21.0-32.0); CREATININE - SERUM 1.4 mg/dL (0.6-1.3); MAGNESIUM - SERUM 1.4 mg/dL (1.8-2.4); PHOSPHOROUS 4.7 mg/dL (2.5-4.9); POTASSIUM - SERUM 4.1 mmol/L (3.5-5.1); THYROID STIMULATING HORMONE 0.66 uIU/mL (0.36-3.74); URIC ACID 6.6 mg/dL (2.6-7.2)
[2019-02-10 06:20] LABS: CALCIUM 7.4 mg/dL (8.5-10.1)
--- NOTE | 2019-02-10 06:50 | NUR ---
REPORT RECEIVED. SHE IS ALERT SITTING IN BED. RESP EVEN WITHOUT LABOR. PICC LINE IS INTACT TO LEFT UPPER ARM. RESP EVEN WITHOUT LABOR. SHE HAS DRESSINGS INTACT TO BILATERAL LOWER LEGS. SHE DENIES ANY PAIN OR NEEDS AT THIS TIME. BED IN LOWEST POSITION AND LOCKED. CAREPLAN REVIEW DONE WITH SAFETY PRECAUTIONS IN PLACE
--- NOTE | 2019-02-10 16:40 | MORECARE ---
CASE MANAGEMENT DISCHARGE SUMMARY PATIENT: SHAGGY AGUAYO ANN UNIT: [id number] ADM DATE: 02/09/19 AGE: 63 : 59 SEX: F ROOM/BED: D.2137 AUTHOR: ARTEM PRIETO PHYSICIAN: REFERRING PHYSICIAN: CYNTHIA CASTILLO MD DATE OF SERVICE: 02/10/19 Discharge Plan Patient Name: SHAGGY AGUAYO Facility: [facility]:[place] : 1955 Planned Disposition: Home Anticipated Discharge Date: Discharge Date: Expected LOS: Initial Reviewer: [email or web address] Initial Review Date: 02/10/2019 Generated: 02/10/19 5:40 pm DCPIA - Discharge Planning Initial Assessment Updated by [email or web address]: Guille Jackson on 02/10/19 4:38 pm * Is the patient Alert and Oriented? Yes * How many steps to enter\exit or inside your home? RAMP * PCP DR. VICENTA CARMEN * Pharmacy [facility] [address] * Preadmission Environment Home with Family * ADLs Independent * Equipment Cane Nebulizer Oxygen Walker Wheelchair * Other Equipment HOME AND PORTABLE OXYGEN [employer] * List name and contact numbers for known caregivers / representatives who currently or will assist patient after discharge: JAYESH CARISANADIYA ESCOTO, * Verbal permission to speak to the caregivers and representatives has been obtained from the patient. N/A * Community resources currently utilized Home Health * Please name any agencies selected above. [facility] * Additional services required to return to the preadmission environment? No * Can the patient safely return to the preadmission environment? Yes * Has this patient been hospitalized within the prior 30 days at any hospital? No Coverage Notice Reviewer: [id number] - Guille Jackson Notice Issued Date-Time: 02/10/2019 16:15 Notice Type: Patient Choice Letter Notice Delivered To: Patient Relationship to Patient: Customer Field Representative Name: Delivery Method: HAND - Hand Delivered Stephanie Days: Prior Verbal Notification: Recipient Understood Notice: Yes Recipient Signature: Yes Med Rec Note Co-signed by Attending: Coverage Notice Comment: [facility] Patient Name: SHAGGY AGUAYO Page [phone] at 1640 All edits/amendments must be made on the electronic document DICTATION DATE: 02/10/19 1640 CENTRAL SCHEDULER: ANDREW 02/10/19 1640 RPT#: [id number] [place] DATE: STATUS: ADM IN [facility] [address] [place] [address] END OF REPORT
--- NOTE | 2019-02-10 16:41 | NUR ---
PT HAS LONG HX OF VENOUS STASIS ULCERS. SHE IS A PT AT THE [facility]. SHE HAS SEVERAL ROSSI ULCERS ON BOTH LOWER LEGS. THE RIGHT LEG DRAINS MORE AND BREAKS OUT MORE FREQUENTLY THAN THE LEFT. CLEANSED LEGS AND APPLIED XEROFORM GAUZE TO PROTECT SKIN ON RIGHT LEG, THEN WRAPPED WITH KERLIX AND NILDA. LEFT LEG : APPLIED CALCIUM ALGINATE OVER OPEN SPOTS AND WRAPPED WITH KERLIX AND SECURE WITH NILDA. PT TOLERATED WELL.
--- NOTE | 2019-02-10 16:48 | MORECARE ---
CASE MANAGEMENT DISCHARGE SUMMARY PATIENT: SHAGGY AGUAYO ANN UNIT: [id number] ADM DATE: 02/09/19 AGE: 63 : 59 SEX: F ROOM/BED: D.6740 AUTHOR: CONNER,DOC PHYSICIAN: REFERRING PHYSICIAN: CYNTHIA CASTILLO MD DATE OF SERVICE: 02/10/19 Discharge Plan Patient Name: SHAGGY AGUAYO Facility: [facility]:[place] : 1955 Planned Disposition: Home Anticipated Discharge Date: Discharge Date: Expected LOS: Initial Reviewer: [email or web address] Initial Review Date: 02/10/2019 Generated: 02/10/19 5:48 pm Comments DCP- Discharge Planning Updated by [email or web address]: Guille Jackson on 02/10/19 3:[address] Patient Name: SHAGGY AGUAYO Admission Status: Elective Accout number: [id number] Admission Date: 02-09-2019 : 1955 Admission Diagnosis: Attending: CYNTHIA QUINTERO Current LOS: 1 Anticipated DC Date: Planned Disposition: Home WITH HOME HEALTH Primary Insurance: [employer] [facility] Discharge Planning Comments: CM MET WITH PT IN ROOM TO DISCUSS DISCHARGE PLANNING AND NEEDS. PT REPORTS LIVING AT HOME INDEPENDENTLY, ALSO IN THE HOME IS PT'S ADULT GRANDSON. PT HAS CANE, NEBULIZER, HOME AND PORTABLE OXYGEN, [facility]ALK[facility]. PT HAS [facility] FOR [facility] THAT PT WANTS RESUMED FOR DISCHARGE HOME. CHOICE LETTER SIGNED. CM DISCUSSED AVAILABILITY OF HOME HEALTH, REHAB SERVICES AND MEDICAL EQUIPMENT. PT DENIES DISCHARGE NEEDS OTHER THAN HOME HEALTH. PT REPORTS HER GRANDSON WILL PICK HER UP FOR DISCHARGE HOME. FOR DISCHARGE HOME, NOTIFY [facility] AT [phone]. FAX DISCHARGE INFORMATION TO [facility] AT [phone]. Manager Staffing: Guille Jackson DCPIA - Discharge Planning Initial Assessment Updated by [email or web address]: Guille Jackson on 02/10/19 4:38 pm * Is the patient Alert and Oriented? Yes * How many steps to enter\exit or inside your home? RAMP * PCP DR. VICENTA CARMEN * Pharmacy [facility] [address] * Preadmission Environment Home with Family * ADLs Independent * Equipment Cane Nebulizer Oxygen Walker Wheelchair * Other Equipment HOME AND PORTABLE OXYGEN [employer] * List name and contact numbers for known caregivers / representatives who currently or will assist patient after discharge: NADIYA JONES, * Verbal permission to speak to the caregivers and representatives has been obtained from the patient. N/A * Community resources currently utilized Home Health * Please name any agencies selected above. [facility] * Additional services required to return to the preadmission environment? No * Can the patient safely return to the preadmission environment? Yes * Has this patient been hospitalized within the prior 30 days at any hospital? No Coverage Notice Reviewer: [id number] Xavier Jackson Notice Issued Date-Time: 02/10/2019 16:15 Notice Type: Patient Choice Letter Notice Delivered To: Patient Relationship to Patient: Waste Water Worker Name: Delivery Method: HAND - Hand Delivered Stephanie Days: Prior Verbal Notification: Recipient Understood Notice: Yes Recipient Signature: Yes Med Rec Note Co-signed by Attending: Coverage Notice Comment: [facility] Last DP export: 02/10/19 3:40 pm Patient Name: SHAGGY AGUAYO Page [phone] at 1648 All edits/amendments must be made on the electronic document DICTATION DATE: 02/10/191646 FUNERAL DIRECTOR/EMBALMER: ANDREW 02/10/191646 RPT#: [id number] DC DATE: STATUS: ADM IN [facility] [address] [place] [address] END OF REPORT
--- NOTE | 2019-02-10 17:15 | NUR ---
NO CHANGE IN CONDITION NOTED. SHE HAS BEEN UP TO BATHROOM.
--- NOTE | 2019-02-11 | NUR ---
UP ON SIDE OF BED, STATES SHE DOES NOT FEEL RIGHT. VS STABLE. HOBBER STICKERS REPLACED. PATIENT RELATIONS COORDINATOR REPORTS SHE IS 69 SINUS. PT REPORTS CONTINUE NAUSEA, BUT STATES IT IS MUCH BETTER THAN IT WAS PRIOR TO PRN ZOFRAN. INFORMED OF NEED FOR STOOL SAMPLE, PT VERBALIZED UNDERSTANDING. WILL MONITOR CLOSELY.
[2019-02-11 04:21] VITALS: BP 122/60
--- NOTE | 2019-02-11 07:00 | NUR ---
RECEIVED REPORT. ASSUMED CARE OF PATIENT. PATIENT SITTING TO SIDE OF BED. COMPLAINS SHE HAS NOT SLEPT LAST NIGHT. CALL LIGHT WITHIN REACH. RESP EVEN AND UNLABORED. NO DISTRESS.
--- NOTE | 2019-02-11 07:38 | NUR ---
MEDICATED FOR NAUSEA. ASSISTED PATIENT BACK TO BED FROM RESTROOM. PATIENT REQUESTING ANXIETY MEDICATION, ALL HAS BEEN STOPPED. INFORMED PATIENT SHE WILL RECEIVE HER WELLBUTRIN THIS AM. PATIENT SITTING TO SIDE OF BED AT THIS TIME. NO DISTRESS.
--- NOTE | 2019-02-11 08:14 | NUR ---
CALLED PHARMACY AND SPOKE TO SEMAJ TO REQUEST ROCALCETROL BE BROUGHT TO THE UNIT EACH PYXIS IS EMPTY. MED TO UNIT SOON PER SEMAJ.
[2019-02-11 08:45] VITALS: BP 136/73
[2019-02-11 08:53] LABS: BASOPHILS 0.1 % (0-2); EOSINOPHILS 0.9 % (0-7); HEMATOCRIT 27.5 % (36.0-48.0); HEMOGLOBIN 9.1 g/dL (12-16); IMMATURE GRANULOCYTES 0.1 % (0-5); LYMPHOCYTES 13.2 % (15-50); MCH 29.8 pg (26.0-34.0); MCHC 33.1 g/dL (31.0-37.0); MCV 90.2 fL (80.0-100.0); MEAN PLATELET VOLUME 10.2 fL (7.4-10.4); MONOCYTES 4.9 % (2-11); NEUTROPHILS 80.8 % (40-80); PLATELET COUNT 216 10x3/uL (130-400); RBC 3.05 10x6/uL (4.00-5.40); RDW 14.1 % (11.5-14.5); WBC 6.7 10x3/uL (4.8-10.8)
[2019-02-11 09:05] LABS: ANION GAP 9.4 mmol/L (8-16); CALCIUM 8.3 mg/dL (8.5-10.1); CARBON DIOXIDE 33.3 mmol/L (21.0-32.0); CREATININE - SERUM 1.2 mg/dL (0.6-1.3); PHOSPHOROUS 3.6 mg/dL (2.5-4.9); POTASSIUM - SERUM 4.7 mmol/L (3.5-5.1)
[2019-02-11 09:06] LABS: MAGNESIUM - SERUM 1.9 mg/dL (1.8-2.4)
--- NOTE | 2019-02-11 11:24 | NUR ---
PATIENT IS COMPLAINING THAT SHE TAKES A NUMBER OF DIFFERENT MEDICATIONS THAT WORKS TOGETHER TO HELP WITH HER PAIN MANAGMENT AND STATES THE PAIN DR DOES NOT WANT HER TO MISS ANY OF THESE MEDIATIONS BECAUSE IT IS VERY HARD TO CONTROL HER PAIN. PATIENT IS QUESTIONING JACOB HERNANDEZ. THOSE MEDICATIONS HAVE NOT YET BEEN STARTED.
--- NOTE | 2019-02-11 11:32 | NUR ---
FSBS 125. NO INSULIN PER SLIDING SCALE.
--- NOTE | 2019-02-11 11:50 | NUR ---
DR. ORTIZ HERE FOR ROUNDS. RESTARTED PATIENTS LYRICA, AND GAVE ONE TIME DOSE OF LASIX. PATIENT SITTING TO SIDE OF BED. NO DISTRESS.
--- NOTE | 2019-02-11 12:12 | NUR ---
MEDICATED FOR NAUSEA AT THIS TIME. NO DISTRESS.
[2019-02-11 12:39] VITALS: BP 140/53
--- NOTE | 2019-02-11 14:15 | NUR ---
ASSISTED PATIENT ON BED STERLING. NO DISTRESS.
[2019-02-11 16:45] VITALS: BP 137/67
--- NOTE | 2019-02-11 16:51 | NUR ---
WOUND CARE COMPLETED TO RIGHT LOWER EXTREMITY AT THIS TIME. NO DISTRESS.
--- NOTE | 2019-02-11 17:04 | NUR ---
FSBS 126. NO INSULIN PER SLIDING SCALE.
--- NOTE | 2019-02-11 19:33 | NUR ---
RECIEVED SITTING UP ON SIDE OF THE BED. ALERT AND ORIENTED X4.AMBULATES TO B/R USING A WALKER. 02@ 12 LITERS PER N/C IN PLACE. PICC TO LEFT UPPER ARM SL.. TELEMETRY IN PLACE. DSG TO TRACY LOWER EXTREMITIES CDI. PACEMAKER TO LEFT CHEST. DENIES ANY NEEDS AT THIS TIME. WILL CONT POC.
[2019-02-11 21:31] VITALS: BP 140/68
[2019-02-12 01:07] VITALS: BP 118/63
[2019-02-12 04:36] VITALS: BP 116/61
--- NOTE | 2019-02-12 06:55 | NUR ---
LINE DRAW FOR AM LABS COMPLETED BY THIS INTEGRATED LOGISTICS SUPPORT MANAGER AT THIS TIME. NO DISTRESS.
[2019-02-12 07:04] LABS: BASOPHILS 0.3 % (0-2); EOSINOPHILS 2.9 % (0-7); HEMATOCRIT 27.8 % (36.0-48.0); IMMATURE GRANULOCYTES 0.2 % (0-5); LYMPHOCYTES 22.3 % (15-50); MCH 29.4 pg (26.0-34.0); MCHC 32.4 g/dL (31.0-37.0); MCV 90.8 fL (80.0-100.0); MEAN PLATELET VOLUME 9.9 fL (7.4-10.4); MONOCYTES 7.4 % (2-11); NEUTROPHILS 66.9 % (40-80); PLATELET COUNT 195 10x3/uL (130-400); RBC 3.06 10x6/uL (4.00-5.40); RDW 14.3 % (11.5-14.5); WBC 6.2 10x3/uL (4.8-10.8)
--- NOTE | 2019-02-12 07:05 | NUR ---
RECEIVED REPORT. ASSUMED CARE OF PATIENT. CALL LIGHT WITHIN REACH. SITTING TO SIDE OF BED. NO DISTRESS.
[2019-02-12 07:19] LABS: ALBUMIN 2.7 g/dL (3.4-5.0); ANION GAP 10.2 mmol/L (8-16); BILIRUBIN - TOTAL 0.42 mg/dL (0.2-1.3); CARBON DIOXIDE 34.3 mmol/L (21.0-32.0); CREATININE - SERUM 1.3 mg/dL (0.6-1.3); POTASSIUM - SERUM 4.5 mmol/L (3.5-5.1); PROTEIN - SERUM 6.2 g/dL (6.4-8.2)
[2019-02-12 08:11] VITALS: BP 124/70
--- NOTE | 2019-02-12 09:20 | NUR ---
JOHNSON GAVIRIA APN AND RECEIVED NEW ORDERS TO HOLD SLOW MAG DUE TO PATIENT LEVEL IS 2.0 AND RENAL HAS HER ON SCHEDULED MAGNESIUM 400MG BID. ORDER INPUTTED TO HOLD UNTIL SHE GOT HERE AND SHE STATED SHE WOULD REVIEW MEDCIATIONS.
--- NOTE | 2019-02-12 09:30 | NUR ---
MEDICATED FOR NAUSEA AT THIS TIME. NO DISTRESS.
--- NOTE | 2019-02-12 11:06 | NUR ---
FSBS 126. NO INUSLIN PER SLIDING SCALE.
[2019-02-12 11:34] VITALS: BP 124/64
--- NOTE | 2019-02-12 13:57 | NUR ---
MEDICATED FOR NAUSEA AT THIS TIME. NO DISTRESS. CALL LIGHT WITHIN REACH.
[2019-02-12 15:52] VITALS: BP 122/64
--- NOTE | 2019-02-12 16:39 | NUR ---
FSBS 144. NO INSULIN PER SLIDING SCALE.
--- NOTE | 2019-02-12 18:40 | NUR ---
RESTING IN BED WITH EYES OPEN, ATTENTION TOWARD TELEVISION. CALL LIGHT WITHIN REACH. NO DISTRESS. DENIES NEEDS.
[2019-02-12 20:00] VITALS: BP 139/72
[2019-02-13 00:01] VITALS: BP 157/80
[2019-02-13 04:00] VITALS: BP 126/60
[2019-02-13 04:06] LABS: MAGNESIUM - URINE <1.4 mg/dL (Not Estab.)
[2019-02-13 05:35] LABS: BASOPHILS 0.2 % (0-2); EOSINOPHILS 2.2 % (0-7); HEMATOCRIT 30.9 % (36.0-48.0); HEMOGLOBIN 9.9 g/dL (12-16); IMMATURE GRANULOCYTES 0.2 % (0-5); LYMPHOCYTES 21.8 % (15-50); MCH 29.5 pg (26.0-34.0); MEAN PLATELET VOLUME 10.2 fL (7.4-10.4); MONOCYTES 7.2 % (2-11); NEUTROPHILS 68.4 % (40-80); RBC 3.36 10x6/uL (4.00-5.40); RDW 14.3 % (11.5-14.5); WBC 6.5 10x3/uL (4.8-10.8)
[2019-02-13 05:59] LABS: ALBUMIN 2.9 g/dL (3.4-5.0); ANION GAP 9.4 mmol/L (8-16); BILIRUBIN - TOTAL 0.43 mg/dL (0.2-1.3); CALCIUM 8.4 mg/dL (8.5-10.1); CARBON DIOXIDE 34.9 mmol/L (21.0-32.0); CREATININE - SERUM 1.4 mg/dL (0.6-1.3); MAGNESIUM - SERUM 1.9 mg/dL (1.8-2.4); PLATELET COUNT 247 10x3/uL (130-400); POTASSIUM - SERUM 4.3 mmol/L (3.5-5.1); PROTEIN - SERUM 7.1 g/dL (6.4-8.2)
--- NOTE | 2019-02-13 07:05 | NUR ---
PT SITTING ON SIDE OF BED. ALERT AND ORIENTED. O2 AT 2L VIA NC. BILATERAL LEG DRESSINGS TO BE CHANGED BY WOUND CARE NURSE. PACEMAKER. PT CONTROLS HER OWN FENTANYL PAIN PUMP AND MD IS AWARE. PT HAS NO FURTHER NEEDS AT THIS TIME. BED LOW. CL IN REACH.
[2019-02-13 07:38] VITALS: BP 130/66
[2019-02-13 11:39] VITALS: BP 141/65
[2019-02-13 14:51] VITALS: BP 113/72
--- NOTE | 2019-02-13 16:34 | NUR ---
CHANGED DRESSINGS ON BILATERAL LOWER LEGS. RIGHT DRESSING IS SATURATED WITH YELLOW DRAINAGE. SKIN IS SLIGHTLY MACERATED. CLEANED BOTH LEGS WITH WOUND ENERGY CONSERVATION TECHNICIAN AND PATTED DRY. RIGHT LEG WAS COVERED WITH XEROFORM GAUZE, ABD PADS, WRAPPED WITH KERLIX AND SECURED WITH NILDA WRAP. LEFT LEG ADAPTIC WAS APPLIED OVER OPEN AREAS, KERLIX WRAPPED AND NILDA WRAP TO SECURE. PT TOLERATED WELL. DISCUSSED CHANGING THE DRESSING CHANGE ORDERS TO DAILY AND PRN SINCE HER RIGHT LEG HAS STARTED WEEPING. WOUND CARE WILL CONTINUE MONITORING.
[2019-02-13 20:00] VITALS: BP 141/73
--- NOTE | 2019-02-13 20:32 | NUR ---
RECIEVED SITTING UP ON SIDE OF BED. ALERT AND ORIENTED X4. NILDA WRAPS TO BILATERAL LEGS UP TO KNEES CDI. PICC LINE TO LEFT UPPER ARM AND UNABLE TO FLUSH PURPLE LINE RESISTANCE TO RED LINE. TELEMETRY IN PLACE. FENTENYL PUMP IN PLACE. DENIES ANY NEEDS AT THIS TIME.
[2019-02-14] VITALS: BP 115/68
--- NOTE | 2019-02-14 00:05 | NUR ---
SITTING UP ON SIDE OF BED. ALERT AND ORIENTED X4. REQUESTED ZOFRAN EARLIER. GIVEN PER ORDERS. DENIES ANY OTHER NEEDS.
[2019-02-14 04:30] VITALS: BP 151/84
[2019-02-14 05:43] LABS: BASOPHILS 0.3 % (0-2); EOSINOPHILS 2.7 % (0-7); HEMATOCRIT 32.2 % (36.0-48.0); HEMOGLOBIN 10.6 g/dL (12-16); IMMATURE GRANULOCYTES 0.4 % (0-5); LYMPHOCYTES 23.9 % (15-50); MCH 30.3 pg (26.0-34.0); MCHC 32.9 g/dL (31.0-37.0); MEAN PLATELET VOLUME 10.2 fL (7.4-10.4); MONOCYTES 7.7 % (2-11); PLATELET COUNT 255 10x3/uL (130-400); RDW 14.2 % (11.5-14.5); WBC 7.3 10x3/uL (4.8-10.8)
[2019-02-14 06:20] LABS: ANION GAP 6.1 mmol/L (8-16); BILIRUBIN - TOTAL 0.44 mg/dL (0.2-1.3); CALCIUM 8.5 mg/dL (8.5-10.1); CARBON DIOXIDE 37.9 mmol/L (21.0-32.0); CREATININE - SERUM 1.5 mg/dL (0.6-1.3); MAGNESIUM - SERUM 1.8 mg/dL (1.8-2.4); PROTEIN - SERUM 7.4 g/dL (6.4-8.2)
--- NOTE | 2019-02-14 06:23 | NUR ---
BLOOD SUGAR 68 THIS AM WILL GIVE MEAGHAN CRACKERS AND PEANUT BUTTER
[2019-02-14 08:25] VITALS: BP 133/72
[2019-02-14 11:36] VITALS: BP 138/75
--- NOTE | 2019-02-14 14:47 | NUR ---
I have reviewed this patient and I concur with the Shift Assessment completed by the Licensed Practical Nurse today this shift.
--- NOTE | 2019-02-14 14:52 | NUR ---
DRESSINGS TO BOTH LEGS CHANGED. PT TOLERATED WELL.
[2019-02-14 15:25] VITALS: Ht 170.2 cm; Wt 127.0 kg
[2019-02-14 15:33] VITALS: BP 125/81
--- NOTE | 2019-02-14 16:10 | MORECARE ---
CASE MANAGEMENT DISCHARGE SUMMARY PATIENT: SHAGGY AGUAYO ANN UNIT: [id number] ADM DATE: 02/09/19 AGE: 63 : 59 SEX: F ROOM/BED: D.3944 AUTHOR: CONNER,DOC PHYSICIAN: REFERRING PHYSICIAN: CYNTHIA CASTILLO MD DATE OF SERVICE: 02/14/19 Discharge Plan Patient Name: SHAGGY AGUAYO Facility: [facility]:[place] : 1955 Planned Disposition: Home Anticipated Discharge Date: Discharge Date: Expected LOS: Initial Reviewer: [email or web address] Initial Review Date: 02/10/2019 Generated: 02/14/19 5:10 pm DCP- Discharge Planning Updated by [id number]: Guille Jackson on 02/10/19 3:[address] Patient Name: SHAGGY AGUAYO Admission Status: Elective Accout number: [id number] Admission Date: 02-09-2019 : 1955 Admission Diagnosis: Attending: CYNTHIA QUINTERO Current LOS: 1 Anticipated DC Date: Planned Disposition: Home WITH HOME HEALTH Primary Insurance: [employer] [facility] Discharge Planning Comments: CM MET WITH PT IN ROOM TO DISCUSS DISCHARGE PLANNING AND NEEDS. PT REPORTS LIVING AT HOME INDEPENDENTLY, ALSO IN THE HOME IS PT'S ADULT GRANDSON. PT HAS CANE, NEBULIZER, HOME AND PORTABLE OXYGEN, WALKER AND [facility]CHAIR [facility]. PT HAS [employer] [facility] FOR WOUND CARE THAT PT WANTS RESUMED FOR DISCHARGE HOME. CHOICE LETTER SIGNED. CM DISCUSSED AVAILABILITY OF HOME HEALTH, REHAB SERVICES AND MEDICAL EQUIPMENT. PT DENIES DISCHARGE NEEDS OTHER THAN HOME HEALTH. PT REPORTS HER GRANDSON WILL PICK HER UP FOR DISCHARGE HOME. FOR DISCHARGE HOME, NOTIFY [facility] [facility] AT [phone]. FAX DISCHARGE INFORMATION TO [facility] [facility] AT [phone]. [employer] Forms: Guille Jackson DCPIA - Discharge Planning Initial Assessment Updated by [id number]: Guille Jackson on 02/10/19 4:38 pm * Is the patient Alert and Oriented? Yes * How many steps to enter\exit or inside your home? RAMP * PCP DR. VICENTA CARMEN * Pharmacy [facility] [address] * Preadmission Environment Home with Family * ADLs Independent * Equipment Cane Nebulizer Oxygen Walker Wheelchair * Other Equipment HOME AND PORTABLE OXYGEN [facility] * List name and contact numbers for known caregivers / representatives who currently or will assist patient after discharge: NADIYA JONES, * Verbal permission to speak to the caregivers and representatives has been obtained from the patient. N/A * Community resources currently utilized Home Health * Please name any agencies selected above. [facility] * Additional services required to return to the preadmission environment? No * Can the patient safely return to the preadmission environment? Yes * Has this patient been hospitalized within the prior 30 days at any hospital? No External Providers External Provider: [facility] Next Contact Date: 02/14/2019 Service Request Date: Service Type: Resolution: Reviewer: Comments: Coverage Notice Reviewer: [email or web address] Xavier Jackson Notice Issued Date-Time: 02/10/2019 16:15 Notice Type: Patient Choice Letter Notice Delivered To: Patient Relationship to Patient: Rough Rice Tender Name: Delivery Method: HAND - Hand Delivered Stephanie Days: Prior Verbal Notification: Recipient Understood Notice: Yes Recipient Signature: Yes Med Rec Note Co-signed by Attending: Coverage Notice Comment: [facility] Last DP export: 02/10/19 3:48 pm Patient Name: SHAGGY AGUAYO Page [id number] at 1610 All edits/amendments must be made on the electronic document DICTATION DATE: 02/14/19 161 SURVEY CHIEF: ANDREW 02/14/19 1610 RPT#: [id number] DC DATE: STATUS: ADM IN [facility] [address] [place] [address] END OF REPORT
--- NOTE | 2019-02-14 16:20 | MORECARE ---
CASE MANAGEMENT DISCHARGE SUMMARY PATIENT: SHAGGY AGUAYO ANN UNIT: [id number] ADM DATE: 02/09/19 AGE: 63 : 59 SEX: F ROOM/BED: D.6308 AUTHOR: CONNER,DOC PHYSICIAN: REFERRING PHYSICIAN: CYNTHIA CASTILLO MD DATE OF SERVICE: 02/14/19 Discharge Plan Patient Name: SHAGGY AGUAYO Facility: [facility]:[place] : 1955 Planned Disposition: Home Anticipated Discharge Date: Discharge Date: Expected LOS: Initial Reviewer: [email or web address] Initial Review Date: 02/10/2019 Generated: 02/14/19 5:20 pm Comments DCP- Discharge Planning Updated by [email or web address]: Guille Jackson on 02/14/19 3:[address] Patient Name: SHAGGY AGUAYO Encounter No: [id number] : 1955 Primary Insurance: [employer] CHOICE PFFS Anticipated DC Date: Planned Disposition: Home WITH HOME HEALTH External Planned Provider: [facility] DCP follow-up note: CM RECEIVED CALL FROM DIANE OF [facility], PT ON HOLD WITH HOME HEALTH SERVICES FOR RESUMPTION AT HOSPITAL DISCHARGE. CM FAXED UPDATE TO [facility] AT [phone]. FOR DISCHARGE HOME, NOTIFY [facility] AT [phone]. FAX DISCHARGE INFORMATION TO [facility] AT [phone]. Senior Manager Creative Services: Guille Jackson DCP- Discharge Planning Updated by [email or web address]: Guille Jackson on 02/10/19 3:[address] Patient Name: SHAGGY AGUAYO Admission Status: Elective Accout number: [id number] Admission Date: 02-09-2019 : 1955 Admission Diagnosis: Attending: CYNTHIA QUINTERO Current LOS: 1 Anticipated DC Date: Planned Disposition: Home WITH HOME HEALTH Primary Insurance: [employer] CHOICE PFFS [facility] Discharge Planning Comments: CM MET WITH PT IN ROOM TO DISCUSS DISCHARGE PLANNING AND NEEDS. PT REPORTS LIVING AT HOME INDEPENDENTLY, ALSO IN THE HOME IS PT'S ADULT GRANDSON. PT HAS CANE, NEBULIZER, HOME AND PORTABLE OXYGEN, WALKER AND WHEELCHAIR FROM [facility]. PT HAS [facility] FOR WOUND CARE THAT PT WANTS RESUMED FOR DISCHARGE HOME. CHOICE LETTER SIGNED. CM DISCUSSED AVAILABILITY OF HOME HEALTH, REHAB SERVICES AND MEDICAL EQUIPMENT. PT DENIES DISCHARGE NEEDS OTHER THAN HOME HEALTH. PT REPORTS HER GRANDSON WILL PICK HER UP FOR DISCHARGE HOME. FOR DISCHARGE HOME, NOTIFY [facility] AT [phone]. FAX DISCHARGE INFORMATION TO [facility] AT [phone]. Senior Manager Creative Services: Guille Jackson DCPIA - Discharge Planning Initial Assessment Updated by [email or web address]: Guille Jackson on 02/10/19 4:38 pm * Is the patient Alert and Oriented? Yes * How many steps to enter\exit or inside your home? RAMP * PCP DR. VICENTA CARMEN * Pharmacy [facility] [address] * Preadmission Environment Home with Family * ADLs Independent * Equipment Cane Nebulizer Oxygen Walker Wheelchair * Other Equipment HOME AND PORTABLE OXYGEN [facility] * List name and contact numbers for known caregivers / representatives who currently or will assist patient after discharge: NADIYA JONES, * Verbal permission to speak to the caregivers and representatives has been obtained from the patient. N/A * Community resources currently utilized Home Health * Please name any agencies selected above. [facility] * Additional services required to return to the preadmission environment? No * Can the patient safely return to the preadmission environment? Yes * Has this patient been hospitalized within the prior 30 days at any hospital? No Coverage Notice Reviewer: [id number] - Guille Jackson Notice Issued Date-Time: 02/10/2019 16:15 Notice Type: Patient Choice Letter Notice Delivered To: Patient Relationship to Patient: Inner Tube Inserter Name: Delivery Method: HAND - Hand Delivered Stephanie Days: Prior Verbal Notification: Recipient Understood Notice: Yes Recipient Signature: Yes Med Rec Note Co-signed by Attending: Coverage Notice Comment: [facility] Last DP export: 02/14/19 3:10 p Patient Name: SHAGGY AGUAYO Page 15193 at 1620 All edits/amendments must be made on the electronic document DICTATION DATE: 02/14/19 1620 AUDITOR IN CHARGE: ANDREW 02/14/19 1620 RPT#: [id number] DC DATE: STATUS: ADM IN [facility] [address] [facility] [place] [id number] END OF REPORT
[2019-02-14 20:00] VITALS: BP 116/69
--- NOTE | 2019-02-14 20:00 | NUR ---
REPORT RECIEVED AND ROUNDING COMPLETE. PATIENT SITTING ON THE SIDE OF HER BED. PATIENT SHOWING NO S/SX OF DISTRESS. PATIENT STATES SHE HAS NO NEEDS AT THIS TIME. 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 CALL LIGHT WIHTIN REACH AND BED IN LOWEST LOCKED POSITION.
[2019-02-15] VITALS: BP 115/69
[2019-02-15 04:30] VITALS: BP 96/52
[2019-02-15 05:07] LABS: BASOPHILS 0.3 % (0-2); EOSINOPHILS 2.3 % (0-7); HEMATOCRIT 32.3 % (36.0-48.0); HEMOGLOBIN 10.4 g/dL (12-16); IMMATURE GRANULOCYTES 0.4 % (0-5); MCH 29.6 pg (26.0-34.0); MCHC 32.2 g/dL (31.0-37.0); MEAN PLATELET VOLUME 10.3 fL (7.4-10.4); MONOCYTES 5.3 % (2-11); NEUTROPHILS 78.7 % (40-80); PLATELET COUNT 260 10x3/uL (130-400); RBC 3.51 10x6/uL (4.00-5.40); RDW 14.5 % (11.5-14.5); WBC 7.7 10x3/uL (4.8-10.8)
[2019-02-15 05:32] LABS: ALBUMIN 3.1 g/dL (3.4-5.0); ANION GAP 7.3 mmol/L (8-16); BILIRUBIN - TOTAL 0.4 mg/dL (0.2-1.3); CALCIUM 9.1 mg/dL (8.5-10.1); CARBON DIOXIDE 36.7 mmol/L (21.0-32.0); CREATININE - SERUM 1.5 mg/dL (0.6-1.3); MAGNESIUM - SERUM 1.8 mg/dL (1.8-2.4); PROTEIN - SERUM 7.5 g/dL (6.4-8.2)
[2019-02-15 09:59] VITALS: BP 99/57
--- NOTE | 2019-02-15 11:47 | NUR ---
CALLED RENEE RUTH APRN AND ASKED HER IF SHE WANTED PT'S PICC LINE TO BE REMOVED. RENEE STATED YES PICC LINE NEEDS TO COME OUT.
--- NOTE | 2019-02-15 11:53 | MORECARE ---
CASE MANAGEMENT DISCHARGE SUMMARY PATIENT: SHAGGY AGUAYO ANN UNIT: [id number] ADM DATE: 02/09/19 AGE: 63 : 59 SEX: F ROOM/BED: D.3424 AUTHOR: CONNER,DOC PHYSICIAN: REFERRING PHYSICIAN: CYNTHIA CASTILLO MD DATE OF SERVICE: 02/15/19 Discharge Plan Patient Name: SHAGGY AGUAYO Facility: [facility]:[place] : 1955 Planned Disposition: Home with Home Health Anticipated Discharge Date: 02/15/19 Discharge Date: Expected LOS: 6 Initial Reviewer: [email or web address] Initial Review Date: 02/10/2019 Generated: 02/15/19 12:53 pm Comments DCP- Discharge Planning Updated by [email or web address]: Guille Jackson on 02/14/19 3:[address] Patient Name: SHAGGY AGUYAO Encounter No: [id number] : 1955 Primary Insurance: [employer] CHOICE PFFS Anticipated DC Date: Planned Disposition: Home WITH HOME HEALTH External Planned Provider: [facility] DCP follow-up note: CM RECEIVED CALL FROM DIANE OF [facility], PT ON HOLD WITH HOME HEALTH SERVICES FOR RESUMPTION AT HOSPITAL DISCHARGE. CM FAXED UPDATE TO [facility] AT [phone]. FOR DISCHARGE HOME, NOTIFY [facility] AT [phone]. FAX DISCHARGE INFORMATION TO [facility] AT [phone]. Director Regulatory Compliance: Guille Jackson DCP- Discharge Planning Updated by [email or web address]: Guille Jackson on 02/10/19 3:[address] Patient Name: SHAGGY AGUAYO Admission Status: Elective Accout number: [id number] Admission Date: 02-09-2019 : 1955 Admission Diagnosis: Attending: CYNTHIA QUINTERO Current LOS: 1 Anticipated DC Date: Planned Disposition: Home WITH HOME HEALTH Primary Insurance: [employer] GOLD CHOICE PFFS [facility] Discharge Planning Comments: CM MET WITH PT IN ROOM TO DISCUSS DISCHARGE PLANNING AND NEEDS. PT REPORTS LIVING AT HOME INDEPENDENTLY, ALSO IN THE HOME IS PT'S ADULT GRANDSON. PT HAS CANE, NEBULIZER, HOME AND PORTABLE OXYGEN, WALKER AND WHEELCHAIR FROM [employer]. PT HAS [facility] FOR WOUND CARE THAT PT WANTS RESUMED FOR DISCHARGE HOME. CHOICE LETTER SIGNED. CM DISCUSSED AVAILABILITY OF HOME HEALTH, REHAB SERVICES AND MEDICAL EQUIPMENT. PT DENIES DISCHARGE NEEDS OTHER THAN HOME HEALTH. PT REPORTS HER GRANDSON WILL PICK HER UP FOR DISCHARGE HOME. FOR DISCHARGE HOME, NOTIFY [facility] AT [phone]. FAX DISCHARGE INFORMATION TO [facility] AT [phone]. Director Regulatory Compliance: Guille Jackson DCPIA - Discharge Planning Initial Assessment Updated by [email or web address]: Guille Jackson on 02/10/19 4:38 pm * Is the patient Alert and Oriented? Yes * How many steps to enter\exit or inside your home? RAMP * PCP DR. VICENTA CARMEN * Pharmacy [facility] [address] * Preadmission Environment Home with Family * ADLs Independent * Equipment Cane Nebulizer Oxygen Walker Wheelchair * Other Equipment HOME AND PORTABLE OXYGEN [facility] * List name and contact numbers for known caregivers / representatives who currently or will assist patient after discharge: NADIYA JONES, * Verbal permission to speak to the caregivers and representatives has been obtained from the patient. N/A * Community resources currently utilized Home Health * Please name any agencies selected above. [facility] * Additional services required to return to the preadmission environment? No * Can the patient safely return to the preadmission environment? Yes * Has this patient been hospitalized within the prior 30 days at any hospital? No Coverage Notice Reviewer: [id number] - Guille Jackson Notice Issued Date-Time: 02/10/2019 16:15 Notice Type: Patient Choice Letter Notice Delivered To: Patient Relationship to Patient: Calibrator Barometers Name: Delivery Method: HAND - Hand Delivered Stephanie Days: Prior Verbal Notification: Recipient Understood Notice: Yes Recipient Signature: Yes Med Rec Note Co-signed by Attending: Coverage Notice Comment: [facility] Last DP export: 02/14/19 3:20 p Patient Name: SHAGGY AGUAYO Page 10923 at 1153 All edits/amendments must be made on the electronic document DICTATION DATE: 02/15/19 1153 FRET SAW OPERATOR: ANDREW 02/15/19 1153 RPT#: [id number] DC DATE: STATUS: ADM IN [facility] [address] [facility] [place] [address] END OF REPORT
--- NOTE | 2019-02-15 12:16 | MORECARE ---
CASE MANAGEMENT DISCHARGE SUMMARY PATIENT: SHAGGY AGUAYO ANN UNIT: [id number] ADM DATE: 02/09/19 AGE: 63 : 59 SEX: F ROOM/BED: D.3560 AUTHOR: CONNER,DOC PHYSICIAN: REFERRING PHYSICIAN: CYNTHIA CASTILLO MD DATE OF SERVICE: 02/15/19 Discharge Plan Patient Name: SHAGGY AGUAYO Facility: [facility]:[place] : 1955 Planned Disposition: Home with Home Health Anticipated Discharge Date: 02/15/19 Discharge Date: Expected LOS: 6 Initial Reviewer: [id number] Initial Review Date: 02/10/2019 Generated: 02/15/19 1:16 pm Comments DCP- Discharge Planning Updated by [email or web address]: Guille Jackson on 02/15/19 11:[address] Patient Name: SHAGGY AGUAYO Encounter No: [id number] : 1955 Primary Insurance: [employer] G[employer] CHOICE PFFS Anticipated DC Date: 02-15-2019 Planned Disposition: Home with Home Health External Planned Provider: [facility] DCP follow-up note: CM RECEIVED CALL FROM MILLIE RHOADES [facility], , SHE WILL CONTACT PRIMARY CARE DOCTOR FOR ORDERS TO RESUME CARE PT'S PERIOD OF HOME HEALTH SERVICES HAS . CM NOTIFIED OF PT'S DISCHARGE HOME TODAY, WOUND CARE NOTES AND FAXED DISCHARGE INFORMATION TO [facility] AT [phone]. Communications Intern: Guille Jackson DCP- Discharge Planning Updated by [id number]: Guille Jackson on 02/14/19 3:[address] Patient Name: SHAGGY AGUAYO Encounter No: [id number] : 1955 Primary Insurance: [employer] GOLD CHOICE PFFS Anticipated DC Date: Planned Disposition: Home WITH HOME HEALTH External Planned Provider: [facility] DCP follow-up note: CM RECEIVED CALL FROM DIANE OF [facility], PT ON HOLD WITH HOME HEALTH SERVICES FOR RESUMPTION AT HOSPITAL DISCHARGE. CM FAXED UPDATE TO [facility] AT [phone]. FOR DISCHARGE HOME, NOTIFY [facility] AT [phone]. FAX DISCHARGE INFORMATION TO [facility] AT [phone]. Communications Intern: Guille Jackson DCP- Discharge Planning Updated by [email or web address]: Guille Jackson on 02/10/19 3:[address] Patient Name: SHAGGY AGUAYO Admission Status: Elective Accout number: [id number] Admission Date: 02-09-2019 : 1955 Admission Diagnosis: Attending: CYNTHIA QUINTERO Current LOS: 1 Anticipated DC Date: Planned Disposition: Home WITH HOME HEALTH Primary Insurance: [facility] Discharge Planning Comments: CM MET WITH PT IN ROOM TO DISCUSS DISCHARGE PLANNING AND NEEDS. PT REPORTS LIVING AT HOME INDEPENDENTLY, ALSO IN THE HOME IS PT'S ADULT GRANDSON. PT HAS CANE, NEBULIZER, HOME AND PORTABLE OXYGEN, WALKER AND WHEELCHAIR FROM [employer]. PT HAS [facility] FOR WOUND CARE THAT PT WANTS RESUMED FOR DISCHARGE HOME. CHOICE LETTER SIGNED. CM DISCUSSED AVAILABILITY OF HOME HEALTH, REHAB SERVICES AND MEDICAL EQUIPMENT. PT DENIES DISCHARGE NEEDS OTHER THAN HOME HEALTH. PT REPORTS HER GRANDSON WILL PICK HER UP FOR DISCHARGE HOME. FOR DISCHARGE HOME, NOTIFY [facility] AT [phone]. FAX DISCHARGE INFORMATION TO [facility] AT [phone]. Communications Intern: Guille Jackson DCPIA - Discharge Planning Initial Assessment Updated by [id number]: Guille Jackson on 02/10/19 4:38 pm * Is the patient Alert and Oriented? Yes * How many steps to enter\exit or inside your home? RAMP * PCP DR. VICENTA CARMEN * Pharmacy [facility] [address] * Preadmission Environment Home with Family * ADLs Independent * Equipment Cane Nebulizer Oxygen Walker Wheelchair * Other Equipment HOME AND PORTABLE OXYGEN [employer] * List name and contact numbers for known caregivers / representatives who currently or will assist patient after discharge: NADIYA JONES, * Verbal permission to speak to the caregivers and representatives has been obtained from the patient. N/A * Community resources currently utilized Home Health * Please name any agencies selected above. [facility] * Additional services required to return to the preadmission environment? No * Can the patient safely return to the preadmission environment? Yes * Has this patient been hospitalized within the prior 30 days at any hospital? No Coverage Notice Reviewer: [id number] Xavier Jackson Notice Issued Date-Time: 02/10/2019 16:15 Notice Type: Patient Choice Letter Notice Delivered To: Patient Relationship to Patient: Acupressure Therapist Name: Delivery Method: HAND - Hand Delivered Stephanie Days: Prior Verbal Notification: Recipient Understood Notice: Yes Recipient Signature: Yes Med Rec Note Co-signed by Attending: Coverage Notice Comment: [facility] Last DP export: 02/15/19 10:53 a Patient Name: SHAGGY AGUAYO Page 55624 at 1216 All edits/amendments must be made on the electronic document DICTATION DATE: 02/15/19 1216 ENSEMBLE MEMBER: ANDREW 02/15/19 1216 RPT#: [id number] DC DATE: STATUS: ADM IN [facility] [address] [place] [address] END OF REPORT
--- NOTE | 2019-02-15 12:39 | NUR ---
PT LEFT UNIT VIA WHEELCHAIR, WITH ALL BELONGINGS, ACCOMPANIED BY GRANDSON, NAD NOTED.
== END 2019-02-15 12:39 | disposition home health service (06) | DRG 640 ==
LOC: D.M2 11:06
PROVIDERS: Family Medicine; Internal Medicine Nephrology; ADMIT Family Medicine Adult Medicine; ATTEND Family Medicine Adult Medicine
PROC: 05HC33Z Insertion of Infusion Device into Left Basilic Vein, Percutaneous Approach (ICD-10-PCS; principal; 2019-02-09)
PROC: B54NZZA Ultrasonography of Left Upper Extremity Veins, Guidance (ICD-10-PCS; 2019-02-09)
DX: E83.42 Hypomagnesemia (principal); J96.21 Acute and chronic respiratory failure with hypoxia; N17.9 Acute kidney failure, unspecified; I50.32 Chronic diastolic (congestive) heart failure; L97.919 Non-pressure chronic ulcer of unspecified part of right lower leg with unspecified severity; L97.929 Non-pressure chronic ulcer of unspecified part of left lower leg with unspecified severity; Z68.41 Body mass index [BMI] 40.0-44.9, adult; I13.0 Hypertensive heart and chronic kidney disease with heart failure and stage 1 through stage 4 chronic kidney disease, or unspecified chronic kidney disease; I83.009 Varicose veins of unspecified lower extremity with ulcer of unspecified site; E03.9 Hypothyroidism, unspecified; K59.09 Other constipation; I48.91 Unspecified atrial fibrillation; J44.9 Chronic obstructive pulmonary disease, unspecified; I25.10 Atherosclerotic heart disease of native coronary artery without angina pectoris; D32.9 Benign neoplasm of meninges, unspecified; E11.65 Type 2 diabetes mellitus with hyperglycemia; E66.01 Morbid (severe) obesity due to excess calories; E11.22 Type 2 diabetes mellitus with diabetic chronic kidney disease; N18.3 Chronic kidney disease, stage 3 (moderate); D50.9 Iron deficiency anemia, unspecified; D51.9 Vitamin B12 deficiency anemia, unspecified

== ENCOUNTER 2019-03-17 14:51 | Inpatient (IN) | payer OTHER ==
[~2019-03-17] VITALS: Ht 170.2 cm; Wt 129.3 kg
--- NOTE | 2019-03-17 15:00 | NUR ---
PT RECIEVED FROM ADMISSION STAFF. RR EVEN AND UNLABORED. PLACED ON 2L OXYGEN. PT STATES SHE WEARS AT HOME. IV ATTEMPTED X2 WITH NO SUCCESS. VASCULAR ACCESS CONSULTED. MIDLINE PLACED IN UPPER RIGHT ARM. BILATERAL DRESSINGS TO LOWER LEGS, PT STATES SHE HAS VENOUS STASIS ULCERS. STATES SHE HAS A CHRONIC FENTANYL PAIN PUMP. ALSO STATES SHE F/U WITH [facility] FOR WOUND CARE. DENIES NEEDS OR PAIN AT THIS TIME. WILL CONTINUE TO MONITOR.
[2019-03-17] MEDS ORDERED: VITAMIN D250000 UNIT PO (15:44)
[2019-03-17] MEDS ORDERED: MAG-OX 400 MG400 MG PO (15:45)
[2019-03-17] MEDS ORDERED: CALCIUM 250+D T1 TAB PO (15:47)
[2019-03-17 16:50] LABS: BASOPHILS 0.2 % (0-2); EOSINOPHILS 1.8 % (0-7); HEMATOCRIT 33.6 % (36.0-48.0); HEMOGLOBIN 10.5 g/dL (12-16); IMMATURE GRANULOCYTES 0.5 % (0-5); MCH 29.4 pg (26.0-34.0); MCHC 31.3 g/dL (31.0-37.0); MCV 94.1 fL (80.0-100.0); MEAN PLATELET VOLUME 9.8 fL (7.4-10.4); MONOCYTES 5.9 % (2-11); NEUTROPHILS 68.6 % (40-80); PLATELET COUNT 227 10x3/uL (130-400); RBC 3.57 10x6/uL (4.00-5.40); RDW 14.6 % (11.5-14.5); WBC 8.8 10x3/uL (4.8-10.8)
[2019-03-17 16:58] LABS: ALBUMIN 3.1 g/dL (3.4-5.0); BILIRUBIN - TOTAL 0.39 mg/dL (0.2-1.3); CARBON DIOXIDE 37.6 mmol/L (21.0-32.0); CREATININE - SERUM 1.5 mg/dL (0.6-1.3); POTASSIUM - SERUM 3.6 mmol/L (3.5-5.1); PROTEIN - SERUM 6.9 g/dL (6.4-8.2)
[2019-03-17 17:00] LABS: CALCIUM 6.5 mg/dL (8.5-10.1); MAGNESIUM - SERUM 0.7 mg/dL (1.8-2.4)
[2019-03-17 17:55] VITALS: BP 141/71; Ht 170.2 cm; Wt 129.3 kg
[2019-03-17 20:05] VITALS: BP 156/78
[2019-03-18] VITALS: BP 140/74
[2019-03-18 04:00] VITALS: BP 106/60
[2019-03-18 06:42] LABS: BASOPHILS 0.1 % (0-2); EOSINOPHILS 2.3 % (0-7); HEMATOCRIT 31.4 % (36.0-48.0); HEMOGLOBIN 9.8 g/dL (12-16); IMMATURE GRANULOCYTES 0.1 % (0-5); LYMPHOCYTES 28.2 % (15-50); MCH 29.5 pg (26.0-34.0); MCHC 31.2 g/dL (31.0-37.0); MCV 94.6 fL (80.0-100.0); MEAN PLATELET VOLUME 10.1 fL (7.4-10.4); MONOCYTES 5.9 % (2-11); NEUTROPHILS 63.4 % (40-80); PLATELET COUNT 208 10x3/uL (130-400); RBC 3.32 10x6/uL (4.00-5.40); RDW 14.5 % (11.5-14.5); WBC 7.3 10x3/uL (4.8-10.8)
[2019-03-18 06:58] LABS: APTT 32.4 SECONDS (22.8-39.4); INR 1.28 (0.85-1.17); PROTIME 15.4 SECONDS (11.6-15.0)
[2019-03-18 07:07] LABS: ALBUMIN 2.7 g/dL (3.4-5.0); ANION GAP 4.5 mmol/L (8-16); BILIRUBIN - TOTAL 0.37 mg/dL (0.2-1.3); CREATININE - SERUM 1.4 mg/dL (0.6-1.3); MAGNESIUM - SERUM 1.3 mg/dL (1.8-2.4); PHOSPHOROUS 4.4 mg/dL (2.5-4.9); POTASSIUM - SERUM 3.5 mmol/L (3.5-5.1); PROTEIN - SERUM 6.4 g/dL (6.4-8.2)
[2019-03-18 07:15] LABS: CALCIUM 6.5 mg/dL (8.5-10.1)
[2019-03-18 08:00] VITALS: BP 141/78
[2019-03-18 08:59] LABS: % SATURATION 17 % (15-55); IRON 34 ug/dl (35-150); TOTAL IRON BIND CAPACITY 194 ug/dl (260-445); UNSAT IRON BIND CAPACITY 160 ug/dl (150-375)
--- NOTE | 2019-03-18 09:00 | NUR ---
PT SITTING UP ON SIDE OF BED. ALERT AND ORIENTED X4. UP ADLIB WITH SBA. TELEMETRY INTACT. UNABOOTS NOTED TO BLE. O2 2L N/C. RESP EVEN AND UNLABORED AND CTA. HRRR AND DENIES ANY CHEST PAIN OR DISCOMFORT. ABDOMEN OBESE WITH BS NOTED X4. ENCOURAGED TO USE CALL LIGHT FOR ASSIST.
--- NOTE | 2019-03-18 17:58 | MORECARE ---
CASE MANAGEMENT DISCHARGE SUMMARY PATIENT: SHAGGY AGUAYO ANN UNIT: [id number] ADM DATE: 03/18/19 AGE: 63 : 59 SEX: F ROOM/BED: D.1212 AUTHOR: ARTEM PRIETO PHYSICIAN: REFERRING PHYSICIAN: CYNTHIA CASTILLO MD DATE OF SERVICE: 03/18/19 Discharge Plan Patient Name: SHAGGY AGUAYO [facility] [facility] 1955 Planned Disposition: Home Anticipated Discharge Date: 03/20/19 Discharge Date: Expected LOS: 2 Initial Reviewer: [email or web address] Initial Review Date: 03/17/2019 Generated: 03/18/19 6:58 pm DCPIA - Discharge Planning Initial Assessment Updated by [email or web address]: Jacqueline Fatima on 03/18/19 5:55 pm * Is the patient Alert and Oriented? Yes * How many steps to enter\exit or inside your home? Ramp * PCP Dr. Acevedo * Pharmacy [facility] [address] * Preadmission Environment Home with Family * ADLs Partial Dependent * Equipment Bedside Commode Rolling Walker Shower Chair Wheelchair * Other Equipment grab bars and rails has a ramp to get into her home. * List name and contact numbers for known caregivers / representatives who currently or will assist patient after discharge: Campbell Henderson [facility] - [phone] * Verbal permission to speak to the caregivers and representatives has been obtained from the patient. Yes * Community resources currently utilized None * Please name any agencies selected above. Was recently discharged from [facility]. Denied need for readmission at this time. * Additional services required to return to the preadmission environment? No * Can the patient safely return to the preadmission environment? Yes * Has this patient been hospitalized within the prior 30 days at any hospital? No Patient Name: SHAGGY AGUAYO Page 12810 at 1758 All edits/amendments must be made on the electronic document DICTATION DATE: 03/18/191756 HAND PROFILER: ANDREW 03/18/191756 RPT#: [id number] DC DATE: STATUS: ADM IN [facility] [address] [place] [address] END OF REPORT
--- NOTE | 2019-03-18 18:04 | MORECARE ---
CASE MANAGEMENT DISCHARGE SUMMARY PATIENT: SHAGGY AGUAYO ANN UNIT: [id number] ADM DATE: 03/18/19 AGE: 63 : 59 SEX: F ROOM/BED: D.1212 AUTHOR: ARTEM PRIETO PHYSICIAN: REFERRING PHYSICIAN: CYNTHIA CASTILLO MD DATE OF SERVICE: 03/18/19 Discharge Plan Patient Name: SHAGGY AGUAYO Facility: [facility]:[place] : 1955 Planned Disposition: Home Anticipated Discharge Date: 03/20/19 Discharge Date: Expected LOS: 2 Initial Reviewer: [email or web address] Initial Review Date: 03/17/2019 Generated: 03/18/19 7:04 pm Comments DCP- Discharge Planning Updated by [email or web address]: Jacqueline Fatima on 03/18/19 4:[address] DC PLAN: Return home with her grandson who assists her. ANTICIPATED DC NEEDS: Denied known dc needs at time of assessment. CM met with patient to complete initial dc planning assessment. CM educated patient on the CM role and verbal consent given by patient to complete assessment. CM verified patient's address, phone number, and emergency contact phone numbers. Patient lives at home with her grandson who helps care for her. She repots he assist her with housework, provides all her transportation needs, and cooks meals. At discharge patient plans to return home and feels this is a safe discharge. CM discussed availability of home health, rehab services, and medical equipment. She reports she was recently discharged from [facility] services. She denied the need for home health to readmit her at time of discharge. Encouraged her to contact CM if she feels she needs HH at [place]. Patient denied known discharge needs at this time. Patient reports her grandson will transport her home at time of discharge. CM will continue to follow and will assist as needed with dc plans/needs. Jacqueline Fatima RN, CCM Appended by Jacqueline Fatima on 03/18/2019 17:59 CDT: Patient wears oxygen 24/7 at home. She reports her grandson will bring her a new portable tank to the hospital at time of discharge for her transport home. Her oxygen company is [employer]. DCPIA - Discharge Planning Initial Assessment Updated by [id number]: Jacqueline Fatima on 03/18/19 5:58 pm * Is the patient Alert and Oriented? Yes * How many steps to enter\exit or inside your home? Ramp * PCP Dr. Acevedo * Pharmacy [facility] [address] * Preadmission Environment Home with Family * ADLs Partial Dependent * Equipment Nebulizer Oxygen * Other Equipment grab bars and rails has a ramp to get into her home. * List name and contact numbers for known caregivers / representatives who currently or will assist patient after discharge: [facility] - [phone] * Verbal permission to speak to the caregivers and representatives has been obtained from the patient. Yes * Community resources currently utilized None * Please name any agencies selected above. Was recently discharged from [facility]. Denied need for readmission at this time. * Additional services required to return to the preadmission environment? No * Can the patient safely return to the preadmission environment? Yes * Has this patient been hospitalized within the prior 30 days at any hospital? No Last DP export: 03/18/19 4:58 Patient Name: SHAGGY AGUAYO Page 45502 at 1804 All edits/amendments must be made on the electronic document DICTATION DATE: 03/18/191803 HOMEOPATHIC DOCTOR: ANDREW 03/18/191803 RPT#: [id number] DC DATE: STATUS: ADM IN [facility] [address] [place] [address] END OF REPORT
--- NOTE | 2019-03-18 19:00 | NUR ---
PT CARE ASSUMED. PT SITTING UP ON SIDE OF BED. RR EVEN AND UNLABORED ON 2L. DENIES NEEDS AT THIS TIME. NO S/S OF DISTRESS OBSERVED. CALL LIGHT IN REACH. WILL CTM.
[2019-03-18 19:55] VITALS: BP 106/70
[2019-03-18 23:42] VITALS: BP 123/61
--- NOTE | 2019-03-19 01:50 | NUR ---
PT C/O OF NAUSEA AND "HEART BURN" NO OTHER VOICED C/O OR CONCERNS. CALL LIGHT IN REACH. WILL CONT TO MONITOR.
[2019-03-19 04:31] VITALS: BP 135/70
[2019-03-19 07:21] LABS: BASOPHILS 0.1 % (0-2); EOSINOPHILS 1.7 % (0-7); HEMATOCRIT 33.3 % (36.0-48.0); HEMOGLOBIN 10.3 g/dL (12-16); IMMATURE GRANULOCYTES 0.1 % (0-5); LYMPHOCYTES 18.8 % (15-50); MCH 29.4 pg (26.0-34.0); MCHC 30.9 g/dL (31.0-37.0); MCV 95.1 fL (80.0-100.0); MEAN PLATELET VOLUME 10.6 fL (7.4-10.4); MONOCYTES 5.6 % (2-11); NEUTROPHILS 73.7 % (40-80); PLATELET COUNT 243 10x3/uL (130-400); RDW 14.4 % (11.5-14.5); WBC 7.1 10x3/uL (4.8-10.8)
[2019-03-19 07:49] LABS: ALBUMIN 2.9 g/dL (3.4-5.0); BILIRUBIN - TOTAL 0.48 mg/dL (0.2-1.3); CARBON DIOXIDE 36.5 mmol/L (21.0-32.0); CREATININE - SERUM 1.2 mg/dL (0.6-1.3)
[2019-03-19 07:50] LABS: ANION GAP 6.8 mmol/L (8-16); MAGNESIUM - SERUM 1.9 mg/dL (1.8-2.4); POTASSIUM - SERUM 4.3 mmol/L (3.5-5.1)
[2019-03-19 08:00] VITALS: BP 116/48
--- NOTE | 2019-03-19 08:00 | NUR ---
ALERT AND ORIENTED X4 WITH O2 2L N/C. LUNGS CTA AND HRRR. MIDLINE NOTED TO RUE WITH IVF INFUSING AT PRECRIBED RATE WITH NO S/S OF INFECTION/INFILTRATION. NEAL BOOTS INTACT TO BLE. HRRR WITH ABDOMEN SOFT WITH BS NOTED. ENCOURAGED TO USE CALL LIGHT FOR ASSIST.
[2019-03-19] MEDS ORDERED: MAG 6464 MG PO (08:15)
[2019-03-19] MEDS ORDERED: ROCALTROL0.25 MCG PO (08:16)
--- NOTE | 2019-03-19 12:13 | NUR ---
MIDLINE DISCONTINUED WITH PRESSURE DRESSING APPLIED. VERBALIZED UNDER OF DISCHARGE INSTRUCTIONS AND STABLE AT TIME OF DEPARTURE UNDER THE CARE OF FAMILY.
--- NOTE | 2019-03-19 14:58 | MORECARE ---
CASE MANAGEMENT DISCHARGE SUMMARY PATIENT: SHAGGY AGUAYO ANN UNIT: [id number] ADM DATE: 03/18/19 AGE: 63 : 59 SEX: F ROOM/BED: D.1212 AUTHOR: ARTEM PRIETO PHYSICIAN: REFERRING PHYSICIAN: CYNTHIA CASTILLO MD DATE OF SERVICE: 03/19/19 Discharge Plan Patient Name: SHAGGY AGUAYO Facility: [facility]:[place] : 1955 Planned Disposition: Home Anticipated Discharge Date: 03/20/19 Discharge Date: 03/19/2019 Expected LOS: 2 Initial Reviewer: [email or web address] Initial Review Date: 03/17/2019 Generated: 03/19/19 3:58 pm Comments DCP- Discharge Planning Updated by [email or web address]: Jacqueline Fatima on 03/18/19 4:[address] DC PLAN: Return home with her grandson who assists her. ANTICIPATED DC NEEDS: Denied known dc needs at time of assessment. CM met with patient to complete initial dc planning assessment. CM educated patient on the CM role and verbal consent given by patient to complete assessment. CM verified patient's address, phone number, and emergency contact phone numbers. Patient lives at home with her grandson who helps care for her. She repots he assist her with housework, provides all her transportation needs, and cooks meals. At discharge patient plans to return home and feels this is a safe discharge. CM discussed availability of home health, rehab services, and medical equipment. She reports she was recently discharged from [facility] services. She denied the need for home health to readmit her at time of discharge. Encouraged her to contact CM if she feels she needs HH at mt. Patient denied known discharge needs at this time. Patient reports her grandson will transport her home at time of discharge. CM will continue to follow and will assist as needed with dc plans/needs. Jacqueline Fatima RN, CCM Appended by Jacqueline Fatima on 03/18/2019 17:59 CDT: Patient wears oxygen 24/7 at home. She reports her grandson will bring her a new portable tank to the hospital at time of discharge for her transport home. Her oxygen company is [employer]. DCPIA - Discharge Planning Initial Assessment Updated by [id number]: Jacqueline Fatima on 03/18/19 5:58 pm * Is the patient Alert and Oriented? Yes * How many steps to enter\exit or inside your home? Ramp * PCP Dr. Acevedo * Pharmacy [facility] [address] * Preadmission Environment Home with Family * ADLs Partial Dependent * Equipment Nebulizer Oxygen * Other Equipment grab bars and rails has a ramp to get into her home. * List name and contact numbers for known caregivers / representatives who currently or will assist patient after discharge: [facility] [phone] * Verbal permission to speak to the caregivers and representatives has been obtained from the patient. Yes * Community resources currently utilized None * Please name any agencies selected above. Was recently discharged from [facility]. Denied need for readmission at this time. * Additional services required to return to the preadmission environment? No * Can the patient safely return to the preadmission environment? Yes * Has this patient been hospitalized within the prior 30 days at any hospital? No Last DP export: 03/18/19 5:04 Patient Name: SHAGGY AGUAYO Page [id number] at 1458 All edits/amendments must be made on the electronic document DICTATION DATE: 03/19/191457 ERP CONSULTANT: ANDREW 03/19/191457 RPT#: [id number] DC DATE:03/19/19 STATUS: DIS IN [facility] [address] [place] [address] END OF REPORT
== END 2019-03-19 12:15 | disposition home or self-care (01) | DRG 392 ==
LOC: OBSVTIME → D.M3 14:51 → UNDOADMOB 14:51 → OBSVTIME 14:51 → D.M3 15:07 → EDSTATUS 03-20 09:36
PROVIDERS: Internal Medicine Nephrology; ADMIT Family Medicine Adult Medicine; ATTEND Family Medicine Adult Medicine
PROC: 05HB33Z Insertion of Infusion Device into Right Basilic Vein, Percutaneous Approach (ICD-10-PCS; principal; 2019-03-17)
PROC: B54MZZA Ultrasonography of Right Upper Extremity Veins, Guidance (ICD-10-PCS; 2019-03-17)
DX: K90.9 Intestinal malabsorption, unspecified (principal); N17.9 Acute kidney failure, unspecified; J96.11 Chronic respiratory failure with hypoxia; I50.32 Chronic diastolic (congestive) heart failure; E83.51 Hypocalcemia; E83.42 Hypomagnesemia; D64.9 Anemia, unspecified; E11.51 Type 2 diabetes mellitus with diabetic peripheral angiopathy without gangrene; E03.9 Hypothyroidism, unspecified; E78.5 Hyperlipidemia, unspecified; I25.10 Atherosclerotic heart disease of native coronary artery without angina pectoris; J44.9 Chronic obstructive pulmonary disease, unspecified; F32.9 Major depressive disorder, single episode, unspecified; G89.29 Other chronic pain; E11.9 Type 2 diabetes mellitus without complications; I11.0 Hypertensive heart disease with heart failure; E66.01 Morbid (severe) obesity due to excess calories

== ENCOUNTER 2019-08-11 13:28 | Outpatient (CLI) | payer OTHER ==
[~2019-08-11] VITALS: Ht 177.8 cm; Wt 123.2 kg
[~2019-08-11 13:28] MED LIST changes: +CALCIUM 250+D T1 TAB PO; +MAG 6464 MG PO; +MAG-OX 400 MG400 MG PO; +ROCALTROL0.25 MCG PO; +VITAMIN D250000 UNIT PO
[2019-08-11 14:26] VITALS: BP 149/80; Ht 177.8 cm; Wt 123.2 kg
--- NOTE | 2019-08-11 18:22 | NUR ---
1655-PT OPTED TO BE DISCHARGED PRIOR TO BEING SEEN BY [facility]. NOT ACTIVELY HAVING ANY SUICIDAL IDEATIONS. ESCORTED OUT VIA W/C WITH FAMILY TO DRIVE HOME. STABLE CONDITION.
== END 2019-08-11 16:55 | disposition home or self-care (01) ==
LOC: D.OPS 13:28
PROVIDERS: ATTEND Internal Medicine
DX: E83.42 Hypomagnesemia (principal); E83.51 Hypocalcemia; K90.9 Intestinal malabsorption, unspecified

== ENCOUNTER → 2020-08-18 14:46 | Outpatient (CLI) | payer OTHER ==
[2020-06-30 14:32] VITALS: BMI 38.8
== END | disposition home or self-care (01) ==
LOC: D.LABREF 14:46
PROVIDERS: ATTEND Nurse Practitioner Family
DX: I12.9 Hypertensive chronic kidney disease with stage 1 through stage 4 chronic kidney disease, or unspecified chronic kidney disease (principal); E11.22 Type 2 diabetes mellitus with diabetic chronic kidney disease; E03.9 Hypothyroidism, unspecified; N18.30 Chronic kidney disease, stage 3 unspecified

== ENCOUNTER 2020-08-28 17:48 | Emergency (ER) | payer OTHER ==
[~2020-08-28] VITALS: Ht 177.8 cm; Wt 118.6 kg
[2020-08-28 17:53] VITALS: BP 158/96; Ht 177.8 cm; Wt 118.6 kg
[2020-08-28 18:27] LABS: BASOPHILS 0.1 % (0-2); EOSINOPHILS 0.6 % (0-7); HEMATOCRIT 33.8 % (36.0-48.0); HEMOGLOBIN 10.9 g/dL (12-16); IMMATURE GRANULOCYTES 0.2 % (0-5); LYMPHOCYTE ABS# 0.97 10x3/uL (1.18-3.74); LYMPHOCYTES 10.5 % (15-50); MCH 28.8 pg (26.0-34.0); MCHC 32.2 g/dL (31.0-37.0); MCV 89.2 fL (80.0-100.0); MEAN PLATELET VOLUME 9.6 fL (7.4-10.4); NEUTROPHIL ABS# 7.82 10x3/uL (1.56-6.13); NEUTROPHILS 84.6 % (40-80); PLATELET COUNT 303 10x3/uL (130-400); RBC 3.79 10x6/uL (4.00-5.40); RDW 13.3 % (11.5-14.5); WBC 9.3 10x3/uL (4.8-10.8)
[2020-08-28 18:32] LABS: ANION GAP 9.4 mmol/L (8-16); CALCIUM 9.5 mg/dL (8.5-10.1); CARBON DIOXIDE 29.6 mmol/L (21.0-32.0); CREATININE - SERUM 1.4 mg/dL (0.6-1.3)
[2020-08-28 18:38] LABS: ALBUMIN 3.4 g/dL (3.4-5.0); BILIRUBIN - TOTAL 0.5 mg/dL (0.2-1.3); PROTEIN - SERUM 8.1 g/dL (6.4-8.2)
== END 2020-08-28 19:40 | disposition home or self-care (01) ==
LOC: D.ER 17:48
PROVIDERS: Emergency Medicine
DX: Z76.5 Malingerer [conscious simulation] (principal); Z53.29 Procedure and treatment not carried out because of patient's decision for other reasons; R11.2 Nausea with vomiting, unspecified; R53.83 Other fatigue

== ENCOUNTER 2020-09-03 16:42 | Inpatient (IN) | payer OTHER ==
[~2020-09-03] VITALS: Ht 177.8 cm; Wt 113.9 kg
[2020-09-03 19:54] LABS: BASOPHILS 0.1 % (0-2); EOSINOPHILS 0.9 % (0-7); HEMATOCRIT 35.5 % (36.0-48.0); HEMOGLOBIN 11.4 g/dL (12-16); IMMATURE GRANULOCYTES 0.2 % (0-5); LYMPHOCYTE ABS# 0.91 10x3/uL (1.18-3.74); MCH 29.1 pg (26.0-34.0); MCHC 32.1 g/dL (31.0-37.0); MCV 90.6 fL (80.0-100.0); MEAN PLATELET VOLUME 9.2 fL (7.4-10.4); MONOCYTES 4.4 % (2-11); NEUTROPHILS 84.4 % (40-80); PLATELET COUNT 269 10x3/uL (130-400); RBC 3.92 10x6/uL (4.00-5.40); RDW 13.5 % (11.5-14.5); WBC 9.1 10x3/uL (4.8-10.8)
[2020-09-03 19:58] LABS: BILIRUBIN NEGATIVE (NEGATIVE); KETONE NEGATIVE (NEGATIVE); NITRITE NEGATIVE (NEGATIVE); UROBILINOGEN NORMAL mg/dL (< 2)
[2020-09-03 20:00] VITALS: BP 169/93
[2020-09-03 20:20] LABS: ANION GAP 9.6 mmol/L (8-16); CALCIUM 9.3 mg/dL (8.5-10.1); CARBON DIOXIDE 33.2 mmol/L (21.0-32.0); CREATININE - SERUM 1.6 mg/dL (0.6-1.3); POTASSIUM - SERUM 3.8 mmol/L (3.5-5.1)
[2020-09-03 20:26] LABS: ALBUMIN 3.7 g/dL (3.4-5.0); BILIRUBIN - TOTAL 0.68 mg/dL (0.2-1.3); MAGNESIUM - SERUM 2.1 mg/dL (1.8-2.4); PHOSPHOROUS 3.8 mg/dL (2.5-4.9); PROTEIN - SERUM 7.7 g/dL (6.4-8.2)
--- NOTE | 2020-09-03 20:55 | NUR ---
1800 PT ARRIVED BY WHEELCHAIR DIRECT ADMIT
--- NOTE | 2020-09-03 20:56 | NUR ---
1815 STARTED IV 20 GAUGE TO RIGHT AC PER PATIENT REQUEST ASSISTED PATIENT TO BED PROVIDED MULTI EMESIS BAGS GAVE ZOFRAN 8MG FOR NAUSEA STARTED NS GTT
--- NOTE | 2020-09-03 20:58 | NUR ---
8550 PROVIDED BEDSIDE COMMODE URINE SPECIMEN COLLECTED AND SENT TO LAB FOR URINALYSIS NOTIFIED DUNCAN BAIRES OF CONSULT
--- NOTE | 2020-09-03 23:12 | NUR ---
REC'D WALKING ROUNDS CHGE OF SHIFT GETTING IV SITED REQUEST IV BE SITED IN RIGHT AC.BY 7A-7P RN. 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
[2020-09-04] VITALS (7 sets, daily range): BP systolic 169–195; BP diastolic 73–93; Ht 177.8 cm; Wt 113.9 kg
--- NOTE | 2020-09-04 06:46 | NUR ---
I have reviewed this patient and I concur with the Shift Assessment completed by the Licensed Practical Nurse today this shift.
[2020-09-04 07:10] LABS: BASOPHILS 0.1 % (0-2); EOSINOPHILS 1.5 % (0-7); HEMATOCRIT 33.9 % (36.0-48.0); HEMOGLOBIN 10.6 g/dL (12-16); IMMATURE GRANULOCYTES 0.1 % (0-5); LYMPHOCYTE ABS# 1.54 10x3/uL (1.18-3.74); LYMPHOCYTES 21.6 % (15-50); MCH 28.4 pg (26.0-34.0); MCHC 31.3 g/dL (31.0-37.0); MCV 90.9 fL (80.0-100.0); MEAN PLATELET VOLUME 9.3 fL (7.4-10.4); MONOCYTES 7.6 % (2-11); NEUTROPHIL ABS# 4.93 10x3/uL (1.56-6.13); NEUTROPHILS 69.1 % (40-80); PLATELET COUNT 232 10x3/uL (130-400); RBC 3.73 10x6/uL (4.00-5.40); RDW 13.6 % (11.5-14.5); WBC 7.1 10x3/uL (4.8-10.8)
[2020-09-04 07:57] LABS: ALBUMIN 3.3 g/dL (3.4-5.0); ANION GAP 9.7 mmol/L (8-16); BILIRUBIN - TOTAL 0.69 mg/dL (0.2-1.3); CARBON DIOXIDE 31.8 mmol/L (21.0-32.0); CREATININE - SERUM 1.6 mg/dL (0.6-1.3); PHOSPHOROUS 3.7 mg/dL (2.5-4.9); POTASSIUM - SERUM 3.5 mmol/L (3.5-5.1); PROTEIN - SERUM 7.7 g/dL (6.4-8.2)
[2020-09-04 09:20] LABS: APTT 31.2 SECONDS (22.8-39.4)
[2020-09-04 10:53] LABS: INR 1.27 (0.85-1.17); PROTIME 14.7 SECONDS (11.6-15.0)
[2020-09-05] VITALS: BP 195/108
[2020-09-05 04:00] VITALS: BP 156/75; BP 195/108
--- NOTE | 2020-09-05 04:55 | NUR ---
I have reviewed this patient and I concur with the Shift Assessment completed by the Licensed Practical Nurse today this shift.
[2020-09-05 07:25] LABS: BASOPHILS 0.1 % (0-2); EOSINOPHILS 3.1 % (0-7); HEMOGLOBIN 11.1 g/dL (12-16); IMMATURE GRANULOCYTES 0.3 % (0-5); LYMPHOCYTE ABS# 1.56 10x3/uL (1.18-3.74); LYMPHOCYTES 21.9 % (15-50); MCH 28.8 pg (26.0-34.0); MCHC 30.8 g/dL (31.0-37.0); MEAN PLATELET VOLUME 9.4 fL (7.4-10.4); MONOCYTES 6.9 % (2-11); NEUTROPHIL ABS# 4.82 10x3/uL (1.56-6.13); NEUTROPHILS 67.7 % (40-80); PLATELET COUNT 255 10x3/uL (130-400); RBC 3.85 10x6/uL (4.00-5.40); RDW 13.7 % (11.5-14.5); WBC 7.1 10x3/uL (4.8-10.8)
[2020-09-05 07:32] LABS: MCV 93.5 fL (80.0-100.0)
[2020-09-05 07:49] LABS: ALBUMIN 3.4 g/dL (3.4-5.0); ANION GAP 12.6 mmol/L (8-16); BILIRUBIN - TOTAL 0.74 mg/dL (0.2-1.3); CALCIUM 9.1 mg/dL (8.5-10.1); CREATININE - SERUM 1.6 mg/dL (0.6-1.3); MAGNESIUM - SERUM 2.2 mg/dL (1.8-2.4); PHOSPHOROUS 3.5 mg/dL (2.5-4.9); POTASSIUM - SERUM 3.6 mmol/L (3.5-5.1)
--- NOTE | 2020-09-05 08:00 | NUR ---
ASSESSMENT PER FLOW SHEET. PATIENT IS WITHOUT DISTRESS. SHE IS VEY ANXIOUS BECAUSE HER PAIN PUMP WILL NEED REFILLED ON THE 3RD. I INSTRUCTED PATIENT WE WOUL TRY TO FIGURE OUT WHAT TO DO RE... REFILL OF PAIN MEDS. MONITOR
[2020-09-05 08:44] VITALS: BP 185/83
[2020-09-05 12:27] VITALS: BP 186/65
[2020-09-05] MEDS ORDERED: DILAUDID4 MG PO (16:34)
[2020-09-05] MEDS ORDERED: MAG 6464 MG PO (16:38)
--- NOTE | 2020-09-05 16:51 | NUR ---
spoke with JIGAR @ [phone] HE STATED THAT HE SPOKE TO THE PATIENT AND SHE UNDERSTOOD THAT SHE IS NOT TO PUSH HER BOLUS ON THE PAIN PUMP AND IT WOULD LAST UNTIL WEDNESDAY. I ALSO CALLED ALIVIA AT THE PAIN CLINIC AND SHE REPORTED THE SAME; IF IT HAPPENS TO RUN OUT THEY REFIL IT IN THE OFFICE SHE WILL NOT HAVE TO RETUN TO SURGERY TO HAVE IT REFILLED. PRABHJOT MIRANDA
[2020-09-05 17:32] VITALS: BP 180/81
[2020-09-05 18:40] LABS: BILIRUBIN NEGATIVE (NEGATIVE); KETONE NEGATIVE (NEGATIVE); NITRITE NEGATIVE (NEGATIVE); UROBILINOGEN NORMAL mg/dL (< 2)
[2020-09-05 19:16] LABS: UDS - AMPHET NEGATIVE QUAL (NEGATIVE); UDS - BARB NEGATIVE QUAL (NEGATIVE); UDS - BENZO NEGATIVE QUAL (NEGATIVE); UDS - COCAINE NEGATIVE QUAL (NEGATIVE); UDS - OPIATE POSITIVE QUAL (NEGATIVE); UDS - PCP NEGATIVE QUAL (NEGATIVE); UDS - THC NEGATIVE QUAL (NEGATIVE)
[2020-09-05 20:00] VITALS: BP 167/72
[2020-09-06] VITALS: BP 152/91
--- NOTE | 2020-09-06 00:12 | NUR ---
I have reviewed this patient and I concur with the Shift Assessment completed by the Licensed Practical Nurse today this shift.
[2020-09-06 04:00] VITALS: BP 128/86
[2020-09-06 06:41] LABS: ALBUMIN 2.7 g/dL (3.4-5.0); BILIRUBIN - TOTAL 0.56 mg/dL (0.2-1.3); CALCIUM 8.6 mg/dL (8.5-10.1); CARBON DIOXIDE 32.5 mmol/L (21.0-32.0); CREATININE - SERUM 1.4 mg/dL (0.6-1.3); PHOSPHOROUS 3.7 mg/dL (2.5-4.9); PROTEIN - SERUM 6.5 g/dL (6.4-8.2)
[2020-09-06 06:52] LABS: BASOPHILS 0.2 % (0-2); EOSINOPHILS 4.7 % (0-7); HEMATOCRIT 29.8 % (36.0-48.0); HEMOGLOBIN 9.1 g/dL (12-16); IMMATURE GRANULOCYTES 0.2 % (0-5); LYMPHOCYTE ABS# 1.32 10x3/uL (1.18-3.74); LYMPHOCYTES 21.4 % (15-50); MCHC 30.5 g/dL (31.0-37.0); MCV 94.9 fL (80.0-100.0); MEAN PLATELET VOLUME 9.7 fL (7.4-10.4); MONOCYTES 7.9 % (2-11); NEUTROPHIL ABS# 4.06 10x3/uL (1.56-6.13); NEUTROPHILS 65.6 % (40-80); PLATELET COUNT 238 10x3/uL (130-400); RBC 3.14 10x6/uL (4.00-5.40); WBC 6.2 10x3/uL (4.8-10.8)
[2020-09-06 06:54] LABS: ANION GAP 8.4 mmol/L (8-16); POTASSIUM - SERUM 3.9 mmol/L (3.5-5.1)
[2020-09-06 08:28] VITALS: BP 143/72
--- NOTE | 2020-09-06 10:00 | NUR ---
ASSESSMENT PER FLOW SHEET. PATIENT IS WITHOUT DISTRESS. BILATERAL STOCKINGS REMAIN IN PLACE. PATIENT DOES NOT WANT THEM REMOVED. SHE STATES SHE GOES TO WOUND CLINIC AND HER DRESSINGS GET CHANGED EVERY OTHER DAY.
[2020-09-06 13:06] VITALS: BP 148/91
--- NOTE | 2020-09-06 13:27 | MORECARE ---
CASE MANAGEMENT DISCHARGE SUMMARY PATIENT: SHAGGY AGUAYO ANN UNIT: [id number] ADM DATE: 09/03/20 AGE: 65 : 59 SEX: F ROOM/BED: D.2219 AUTHOR: CONNER,DOC PHYSICIAN: REFERRING PHYSICIAN: ISAAC GUDINO MD DATE OF SERVICE: 09/06/20 Case Management Discharge Planning Summary CT Patient Name: SHAGGY AGUAYO Attending MD : BRANDON BERMUDEZ Medical Record: [id number] Encounter : [id number] Facility : [address] [place] [address] Admission Date : 116:42 Center Discharge Date : [address] [place] [address] Date of : DC Plan ID : [id number] Age/Sex/Martia : 65/ F/W Printed on : 09/06/20 13:25 CT DCP Review Details Anticipated D/C: Expected LOS : Case Status : INITIATED - Initial Reviewe: [id number] - Rona Amor Initial Review: 09/03/2020 Planned Disposi: - Final Discharge: - Final Reviewer : : Final Review : DCP Focus Questions & Answers [facility] SHAGGY AGUAYO MR#: [id number] /Age/Sex/Pzbuzs29-Zqv-61 /65/F /W Attending Physician Name: RANJANA GUDINO [id number] Patient Account:[id number] [facility] Page -1 of 1 All edits/amendments must be made on the electronic document DICTATION DATE: 09/06/20 1325 PROJECTOR BOOTH OPERATOR: DM 09/06/20 1325 RPT#: [id number] DC DATE: STATUS: ADM IN [facility] [address] [place] [address] END OF REPORT
--- NOTE | 2020-09-06 14:53 | NUR ---
REFUSES SUPPOSITORY ORDERED.
--- NOTE | 2020-09-06 15:08 | NUR ---
SLEEPING WITHOUT SIGNS OF DISTRESS.MONITOR FOR NEEDS
[2020-09-06 17:02] VITALS: BP 148/79
[2020-09-06 19:30] VITALS: BP 155/83
[2020-09-07 00:33] VITALS: BP 146/59
--- NOTE | 2020-09-07 03:00 | NUR ---
I have reviewed this patient and I concur with the Shift Assessment completed by the Licensed Practical Nurse today this shift.
[2020-09-07 05:02] VITALS: BP 187/87
[2020-09-07 06:53] LABS: BASOPHILS 0.1 % (0-2); EOSINOPHILS 3.8 % (0-7); HEMATOCRIT 32.7 % (36.0-48.0); HEMOGLOBIN 9.9 g/dL (12-16); IMMATURE GRANULOCYTES 0.4 % (0-5); LYMPHOCYTE ABS# 1.69 10x3/uL (1.18-3.74); LYMPHOCYTES 22.4 % (15-50); MCH 28.7 pg (26.0-34.0); MCHC 30.3 g/dL (31.0-37.0); MCV 94.8 fL (80.0-100.0); MEAN PLATELET VOLUME 10.3 fL (7.4-10.4); MONOCYTES 6.9 % (2-11); NEUTROPHIL ABS# 5.02 10x3/uL (1.56-6.13); NEUTROPHILS 66.4 % (40-80); RBC 3.45 10x6/uL (4.00-5.40); RETIC 1.65 % (0.45-2.28); WBC 7.6 10x3/uL (4.8-10.8)
[2020-09-07 07:23] LABS: % SATURATION 20 % (15-55); IRON 36 ug/dl (35-150); TOTAL IRON BIND CAPACITY 177 ug/dl (260-445); UNSAT IRON BIND CAPACITY 141 ug/dl (150-375)
[2020-09-07 07:46] LABS: ANION GAP 12.4 mmol/L (8-16); BILIRUBIN - TOTAL 0.58 mg/dL (0.2-1.3); CALCIUM 8.8 mg/dL (8.5-10.1); CARBON DIOXIDE 28.2 mmol/L (21.0-32.0); CREATININE - SERUM 1.4 mg/dL (0.6-1.3); MAGNESIUM - SERUM 1.9 mg/dL (1.8-2.4); POTASSIUM - SERUM 3.6 mmol/L (3.5-5.1); PROTEIN - SERUM 7.1 g/dL (6.4-8.2)
[2020-09-07 07:51] LABS: PLATELET COUNT 289 10x3/uL (130-400)
[2020-09-07 08:46] VITALS: BP 184/79
--- NOTE | 2020-09-07 10:18 | NUR ---
RESTING IN BED, NO DISTRESS NOTED, MEDICATED FOR PAIN, CONT TO MONITOR SUGARS, IV INFUSING PER L WRIST, CONT TO MONITOR
[2020-09-07 12:30] VITALS: BP 163/88
[2020-09-07] MEDS ORDERED: REGLAN10 MG PO (14:09)
--- NOTE | 2020-09-07 15:06 | NUR ---
PT REFUSING TO GO HOME WITHOUT RX FOR DILRAMONA AND ARSENIO, DR GUDION GONE FROM HOSPITAL FOR TODAY, WILL D/C TOMORROW
--- NOTE | 2020-09-07 16:10 | MORECARE ---
CASE MANAGEMENT DISCHARGE SUMMARY PATIENT: SHAGGY AGUAYO UNIT: [id number] ADM DATE: 09/03/20 AGE: 65 : 59 SEX: F ROOM/BED: D.2219 AUTHOR: CONNER,DOC PHYSICIAN: REFERRING PHYSICIAN: ISAAC GUDINO MD DATE OF SERVICE: 09/07/20 Case Management Discharge Planning Summary CT Patient Name: SHAGGY AGUAYO Attending MD : BRANDON BERMUDEZ Medical Record: [id number] Encounter : [id number] Facility : [address] [place] [address] Admission Date : 116:42 Center Discharge Date : [address] [place] [address] Date of : DC Plan ID : [id number] Age/Sex/Martia : 65/ F/W Printed on : 09/07/20 16:09 CT DCP Review Details Anticipated D/C: 09/07/2020 Expected LOS : 4 Case Status : INITIATED - Initial Reviewe: [id number] - Rona Amor Initial Review: 09/03/2020 Planned Disposi: 06 - Discharged/Trans to Home Under Care of [facility] in Anticipation of Skilled Care Final Discharge: 06 - Discharged/Trans to Home Under Care of [facility] in Anticipation of Skilled Care Final Reviewer : [id number] : Murali Stoddard Final Review : 09/07/[address] Entered Date Type Reviewer 09/07/20 16:00 CT Discharge Planning Murali Stoddard Comment [facility]. CM met with patient to complete DC plan and to evaluate needs. Patient lives independently at home with her grandson, Campbell Huerta. At discharge, the patient plans to return home and feels this is a safe discharge. Patient stated that she fills her medications without problems at [facility] and her primary physician is Dr. Acevedo. Patient stated that her home is safe and has electricity and water. Patient stated that she has a ramp to enter the house. CM discussed availability of home health, rehab services, and medical equipment. Patient declined SNF, IPR, and DME. Patient stated that she has a Riding Scooter, rolling walker, and a wheelchair. Patient stated that she is current with [facility] for wound care. Clinicals faxed to [facility]. Attempted to call [facility]. Left message for call back with the Answering service. Awaiting transportation planning technician nurse to call back. CHERRIE signed and placed on chart. Patient inquired about her medications stating that she is ok to go home as long as her Lyrica, Dilaudid, and Linzess medications are prescribed at DC. Patient voiced no other needs at this time and is satisfied with DC plan. Transportation provider at discharge will be with her Campbell shaikh. DC IMM delivered, explained, signed by the patient, and placed in chart. Signed form also left with the patient. CM will continue to follow and will assist as needed with dc plans/needs. DCP Focus Questions & Answers DCP Evaluation Patient and/or caregiver agree upon recommended Yes discharge plan? Family / Caregiver's ability to cope with chronic a. Adequate (ability to meet patient's illness: medical needs, ensures patient attends medical appts.) Patient's current cognitive status: *Oriented to person, place, situation, time and present Patient's ability to cope with chronic illness d. No chronic illness Patient gives permission to discuss discharge Campbell shaikh Deanna, plans with: (name, relationship and number) [phone] Does the patient have the ability to pay for or Yes attain post discharge needs / services? Functional screen assessment: Basic needs can adequately be met by self Physical Status: Mobility impaired Physical Status: Independent with ADL's Equipment needed for post hospitalization: None Is there a likelihood that the patient will Yes require additional services to return to the preadmission environment? Living Arrangements: Home with Extended Family Partial Dependence, assistance required for: Ambulation / Mobility Patient with capacity for self-care or can be Yes cared for in same environment as prior to hospitalization? Living arrangements comments: Lives with Too Baseline cognitive status: *Oriented to person, place, situation, time and present Physical environment modification needed / No anticipated for discharge: Medication Management: Patient states can read and understand medication labels Medication Management: Patient states can afford medications Planned post hospital services available for Yes patient? Pharmacy name(s): [facility] Planned post hospital services covered by Yes insurance plan? Does Patient have transportation to get home and Yes to follow-up medical appointments when discharged from the hospital? Would patient like to participate in any Care Not applicable Coordination programs (if applicable): Does the patient have electricity at home? Yes Does the patient have running water in their Yes house? Equipment in use: Wheelchair Equipment in use: Walker - Rolling Equipment in use: Shower Chair Equipment in use: Scooter Mental health screen: No mental health history DCP Re-evaluation Would patient like to participate in any Care Not applicable Coordination programs (if applicable): [facility] SHAGGY AGUAYO MR#: [id number] /Age/Sex/Daergi29-Yvf-67 /65/F /W Attending Physician Name: RANJANA GUDINO [id number] Patient Account:[id number] [facility] Page -1 of 1 All edits/amendments must be made on the electronic document DICTATION DATE: 09/07/201608 TIE PRESSER: ANDREW 09/07/201608 RPT#: [id number] DC DATE: STATUS: ADM IN [facility] [address] [place] [address] END OF REPORT
[2020-09-07 18:07] VITALS: BP 167/77
--- NOTE | 2020-09-07 18:56 | MORECARE ---
CASE MANAGEMENT DISCHARGE SUMMARY PATIENT: SHAGGY AGUAYO UNIT: [id number] ADM DATE: 09/03/20 AGE: 65 : 59 SEX: F ROOM/BED: D.2219 AUTHOR: CONNER,DOC PHYSICIAN: REFERRING PHYSICIAN: ISAAC GUDINO MD DATE OF SERVICE: 09/07/20 Case Management Discharge Planning Summary CT Patient Name: SHAGGY AGUAYO Attending MD : BRANDON BERMUDEZ Medical Record: [id number] Encounter : [id number] Facility : [address] [place] [address] Admission Date : 116:42 Center Discharge Date : [address] [place] [address] Date of : DC Plan ID : [id number] Age/Sex/Martia : 65/ F/W Printed on : 09/07/20 18:55 CT DCP Review Details Anticipated D/C: 09/07/2020 Expected LOS : 4 Case Status : INITIATED - Initial Reviewe: [id number] - Roan Amor Initial Review: 09/03/2020 Planned Disposi: 06 - Discharged/Trans to Home Under Care of [facility] in Anticipation of Skilled Care Final Discharge: 06 - Discharged/Trans to Home Under Care of [facility] Service in Anticipation of Skilled Care Final Reviewer : [id number] : Murali Stoddard Final Review : 09/07/[address] Entered Date Type Reviewer 09/07/20 18:52 CT Discharge Planning Murali Stoddard Comment CLINICALS FAXED TO [facility] [phone] 09/07/20 18:48 CT Discharge Planning Murali Stoddard Comment Received call back from [facility] services. Spoke with Beth. Beth stated that she would like for the clinicals to be faxed directly to her roller printing supervisor at [phone]. Beth stated that the patient was discharged from [facility] yesterday on the 09-06-20. Will fax clinicals soon. CM will continue to follow and will assist as needed with dc plans/needs. 09/07/20 16:00 CT Discharge Planning Murali Stoddard Comment [facility]. CM met with patient to complete DC plan and to evaluate needs. Patient lives independently at home with her grandson, Campbell Huerta. At discharge, the patient plans to return home and feels this is a safe discharge. Patient stated that she fills her medications without problems at [facility] and her primary physician is Dr. Acevedo. Patient stated that her home is safe and has electricity and water. Patient stated that she has a ramp to enter the house. CM discussed availability of home health, rehab services, and medical equipment. Patient declined SNF, IPR, and DME. Patient stated that she has a Riding Scooter, rolling walker, and a wheelchair. Patient stated that she is current with [facility] for wound care. Clinicals faxed to [employer]. Attempted to call [employer]. Left message for call back with the Answering service. Awaiting traffic control supervisor nurse to call back. CHERRIE signed and placed on chart. Patient inquired about her medications stating that she is ok to go home as long as her Lyrica, Dilaudid, and Linzess medications are prescribed at DC. Patient voiced no other needs at this time and is satisfied with DC plan. Transportation provider at discharge will be with her grandCampbell valencia. DC IMM delivered, explained, signed by the patient, and placed in chart. Signed form also left with the patient. CM will continue to follow and will assist as needed with dc plans/needs. DCP Focus Questions & Answers DCP Evaluation Patient and/or caregiver agree upon recommended Yes discharge plan? Family / Caregiver's ability to cope with chronic a. Adequate (ability to meet patient's illness: medical needs, ensures patient attends medical appts.) Patient's current cognitive status: *Oriented to person, place, situation, time and present Patient's ability to cope with chronic illness d. No chronic illness Patient gives permission to discuss discharge Campbell shaikh, plans with: (name, relationship and number) [phone] Does the patient have the ability to pay for or Yes attain post discharge needs / services? Functional screen assessment: Basic needs can adequately be met by self Physical Status: Mobility impaired Physical Status: Independent with ADL's Equipment needed for post hospitalization: None Is there a likelihood that the patient will Yes require additional services to return to the preadmission environment? Living Arrangements: Home with Extended Family Partial Dependence, assistance required for: Ambulation / Mobility Patient with capacity for self-care or can be Yes cared for in same environment as prior to hospitalization? Living arrangements comments: Lives with Grandson Baseline cognitive status: *Oriented to person, place, situation, time and present Physical environment modification needed / No anticipated for discharge: Medication Management: Patient states can read and understand medication labels Medication Management: Patient states can afford medications Planned post hospital services available for Yes patient? [facility] [address] Planned post hospital services covered by Yes insurance plan? Does Patient have transportation to get home and Yes to follow-up medical appointments when discharged from the hospital? Would patient like to participate in any Care Not applicable Coordination programs (if applicable): Does the patient have electricity at home? Yes Does the patient have running water in their Yes house? Equipment in use: Wheelchair Equipment in use: Walker - Rolling Equipment in use: Shower Chair Equipment in use: Scooter Mental health screen: No mental health history DCP Re-evaluation Would patient like to participate in any Care Not applicable Coordination programs (if applicable): [facility] SHAGGY AGUAYO MR#: [id number] /Age/Sex/Clbcoz37-Rot-03 //F /W Attending Physician Name: SHAHAB RANJANA [id number] Patient Account:[id number] [facility] Page -1 of 1 All edits/amendments must be made on the electronic document DICTATION DATE: 09/07/201854 SIGNAL INSPECTOR: ANDREW 09/07/201854 RPT#: [id number] DC DATE: STATUS: ADM IN [facility] [address] [place] [address] END OF REPORT
--- NOTE | 2020-09-07 19:00 | NUR ---
BEDSIDE REPORT RECEIVED AND CARE OF PT ASSUMED. PT LYING IN LOW JOYCE'S POSITION WATCHING TV. IV TO LEFT WRIST PATENT WITH NS INFUSING AT 100 ML/HR. O2 IN USE VIA NC AT 2L.
--- NOTE | 2020-09-07 20:40 | NUR ---
HS MEDICATIONS GIVEN TO INCLUDE BENADRYL IVP PER REQUEST, PER PRN ORDER. WILL MONITOR FOR EFFECTIVENESS.
[2020-09-07 20:54] VITALS: BP 194/88
[2020-09-08 01:09] VITALS: BP 167/62
[2020-09-08 05:39] VITALS: BP 167/71
[2020-09-08 06:04] LABS: BASOPHILS 0.3 % (0-2); EOSINOPHILS 4.4 % (0-7); HEMATOCRIT 31.3 % (36.0-48.0); HEMOGLOBIN 9.5 g/dL (12-16); IMMATURE GRANULOCYTES 0.1 % (0-5); LYMPHOCYTE ABS# 1.47 10x3/uL (1.18-3.74); LYMPHOCYTES 19.2 % (15-50); MCH 28.4 pg (26.0-34.0); MCHC 30.4 g/dL (31.0-37.0); MCV 93.7 fL (80.0-100.0); MEAN PLATELET VOLUME 10.1 fL (7.4-10.4); MONOCYTES 7.3 % (2-11); NEUTROPHIL ABS# 5.27 10x3/uL (1.56-6.13); NEUTROPHILS 68.7 % (40-80); PLATELET COUNT 273 10x3/uL (130-400); RBC 3.34 10x6/uL (4.00-5.40); RDW 14.1 % (11.5-14.5); WBC 7.7 10x3/uL (4.8-10.8)
[2020-09-08 06:14] LABS: ALBUMIN 2.8 g/dL (3.4-5.0); ANION GAP 9.4 mmol/L (8-16); BILIRUBIN - TOTAL 0.56 mg/dL (0.2-1.3); CALCIUM 8.6 mg/dL (8.5-10.1); CARBON DIOXIDE 29.9 mmol/L (21.0-32.0); CREATININE - SERUM 1.2 mg/dL (0.6-1.3); MAGNESIUM - SERUM 1.7 mg/dL (1.8-2.4); PHOSPHOROUS 3.1 mg/dL (2.5-4.9); POTASSIUM - SERUM 3.3 mmol/L (3.5-5.1); PROTEIN - SERUM 6.7 g/dL (6.4-8.2)
--- NOTE | 2020-09-08 08:30 | NUR ---
AAOX4 UPON ENTERING. ADMINISTERED MEDICATION, NO DIFFICULTIES. ASSESSMENT PERFORMED AT THIS TIME. DENIES ANY NEEDS AT THIS TIME. BED IN LOWEST POSITION, BED RAILS X3, CALL LIGHT WITHIN REACH. WILL CONTINUE POC.
[2020-09-08 09:11] VITALS: BP 159/82
--- NOTE | 2020-09-08 10:11 | NUR ---
ADMINISTERED PRN ZOFRAN FOR NAUSEA. TOLERATED WELL. PT GETTING BACK TO BED FROM BEDSIDE COMMODE. DENIES ANY NEEDS AT THIS TIME. WILL CONTINUE POC.
[2020-09-08] MEDS ORDERED: DILAUDID4 MG PO (10:38)
--- NOTE | 2020-09-08 11:12 | NUR ---
I have reviewed this patient and I concur with the Shift Assessment completed by the Licensed Practical Nurse today this shift.
--- NOTE | 2020-09-08 11:28 | NUR ---
NO INSULIN PER SLIDING SCALE FOR SUGAR OF 132. RESTING COMFORTABLY IN BED. SALINE LOCKED IV. DENIES FURTHER NEEDS AT THIS TIME. WILL CONTINUE POC.
--- NOTE | 2020-09-08 12:34 | NUR ---
REMOVED IV'S FROM LEFT AC AND RIGHT WRIST. BOTH HAD CATHETER TIP INTACT, COVERED WITH GAUZE AND TAPE. TOLERATED PROCEDURES WELL. DENIES NEEDING HELP GETTING DRESSED. SIGNED ALL NECESSARY DISCHARGE PAPERWORK AT THIS TIME.
--- NOTE | 2020-09-08 13:46 | NUR ---
ESCORTED OUT BY FAMILY AND TRANSPORTER.
--- NOTE | 2020-09-08 19:31 | MORECARE ---
CASE MANAGEMENT DISCHARGE SUMMARY PATIENT: SHAGGY AGUAYO UNIT: [id number] ADM DATE: 09/03/20 AGE: 65 : 59 SEX: F ROOM/BED: D.2219 AUTHOR: CONNER,DOC PHYSICIAN: REFERRING PHYSICIAN: ISAAC GUDINO MD DATE OF SERVICE: 09/08/20 Case Management Discharge Planning Summary CT Patient Name: SHAGGY AGUAYO Attending MD : BRANDON BERMUDEZ Medical Record: [id number] Encounter : [id number] Facility : [address] [place] [address] Admission Date : 116:42 Center Discharge Date : 09/08/[address] [place] [address] Date of : DC Plan ID : [id number] Age/Sex/Martia : 65/ F/W Printed on : 09/08/20 19:30 CT DCP Review Details Anticipated D/C: 09/07/2020 Expected LOS : 4 Case Status : INITIATED - Initial Reviewe: [id number] - Rona Amor Initial Review: 09/03/2020 Planned Disposi: 06 - Discharged/Trans to Home Under Care of Organized Home Health Service in Anticipation of Skilled Care Final Discharge: 06 - Discharged/Trans to Home Under Care of Organized Home Health Service in Anticipation of Skilled Care Final Reviewer : [id number] : Murali Stoddard Final Review : 09/07/[address] Entered Date Type Reviewer 09/07/20 18:52 CT Discharge Planning Murali Stoddard Comment CLINICALS FAXED TO [facility] [phone] 09/07/20 18:48 CT Discharge Planning Murali Stoddard Comment Received call back from [facility] services. Spoke with Beth. Beth stated that she would like for the clinicals to be faxed directly to her mold making plastics sheets supervisor at [phone]. Beth stated that the patient was discharged from [facility] yesterday on the 09-06-20. Will fax clinicals soon. CM will continue to follow and will assist as needed with dc plans/needs. 09/07/20 16:00 CT Discharge Planning Murali Stoddard Comment [facility]. CM met with patient to complete DC plan and to evaluate needs. Patient lives independently at home with her grandson, Campbell Huerta. At discharge, the patient plans to return home and feels this is a safe discharge. Patient stated that she fills her medications without problems at [facility] and her primary physician is Dr. Acevedo. Patient stated that her home is safe and has electricity and water. Patient stated that she has a ramp to enter the house. CM discussed availability of home health, rehab services, and medical equipment. Patient declined SNF, IPR, and DME. Patient stated that she has a Riding Scooter, rolling walker, and a wheelchair. Patient stated that she is current with [facility] for wound care. Clinicals faxed to [facility]. Attempted to call [facility]. Left message for call back with the Answering service. Awaiting mortgage protection sales nurse to call back. CHERRIE signed and placed on chart. Patient inquired about her medications stating that she is ok to go home as long as her Lyrica, Dilaudid, and Linzess medications are prescribed at [place]. Patient voiced no other needs at this time and is satisfied with DC plan. Transportation provider at discharge will be with her grandson, Campbell. DC IMM delivered, explained, signed by the patient, and placed in chart. Signed form also left with the patient. CM will continue to follow and will assist as needed with dc plans/needs. DCP Focus Questions & Answers DCP Evaluation Patient and/or caregiver agree upon recommended Yes discharge plan? Family / Caregiver's ability to cope with chronic a. Adequate (ability to meet patient's illness: medical needs, ensures patient attends medical appts.) Patient's current cognitive status: *Oriented to person, place, situation, time and present Patient's ability to cope with chronic illness d. No chronic illness Patient gives permission to discuss discharge Campbell shaikh, plans with: (name, relationship and number) [phone] Does the patient have the ability to pay for or Yes attain post discharge needs / services? Functional screen assessment: Basic needs can adequately be met by self Physical Status: Mobility impaired Physical Status: Independent with ADL's Equipment needed for post hospitalization: None Is there a likelihood that the patient will Yes require additional services to return to the preadmission environment? Living Arrangements: Home with Extended Family Partial Dependence, assistance required for: Ambulation / Mobility Patient with capacity for self-care or can be Yes cared for in same environment as prior to hospitalization? Living arrangements comments: Lives with Grandson Baseline cognitive status: *Oriented to person, place, situation, time and present Physical environment modification needed / No anticipated for discharge: Medication Management: Patient states can read and understand medication labels Medication Management: Patient states can afford medications Planned post hospital services available for Yes patient? Pharmacy name(s): [facility] [address] Planned post hospital services covered by Yes insurance plan? Does Patient have transportation to get home and Yes to follow-up medical appointments when discharged from the hospital? Would patient like to participate in any Care Not applicable Coordination programs (if applicable): Does the patient have electricity at home? Yes Does the patient have running water in their Yes house? Equipment in use: Wheelchair Equipment in use: Walker - Rolling Equipment in use: Shower Chair Equipment in use: Scooter Mental health screen: No mental health history DCP Re-evaluation Would patient like to participate in any Care Not applicable Coordination programs (if applicable): [facility] SHAGGY AGUAYO MR#: [id number] /Age/Sex/Xefstn55-Tgz-48 /65/F /W Attending Physician Name: RANJANA GUDINO [id number] Patient Account:[id number] [facility] Page -1 of 1 All edits/amendments must be made on the electronic document DICTATION DATE: 09/08/201929 LOGISTICS SUPERVISOR: ANDREW 09/08/201929 RPT#: [id number] DC DATE:09/08/20 STATUS: DIS IN [facility] [address] [place] [address] END OF REPORT
--- NOTE | 2020-09-09 12:49 | MORECARE ---
CASE MANAGEMENT DISCHARGE SUMMARY PATIENT: SHAGGY AGUYAO UNIT: [id number] ADM DATE: 09/03/20 AGE: 65 : 59 SEX: F ROOM/BED: D.2219 AUTHOR: CONENR,DOC PHYSICIAN: REFERRING PHYSICIAN: ISAAC GUDINO MD DATE OF SERVICE: 09/09/20 Case Management Discharge Planning Summary CT Patient Name: SHAGGY AGUAYO Attending MD : BRANDON BERMUDEZ Medical Record: [id number] Encounter : [id number] Facility : [address] [place] [address] Admission Date : 116:42 Center Discharge Date : 09/08/[address] [place] [address] Date of : DC Plan ID : [id number] Age/Sex/Martia : 65/ F/W Printed on : 09/09/20 12:48 CT DCP Review Details Anticipated D/C: 09/07/2020 Expected LOS : 4 Case Status : INITIATED - Initial Reviewe: [id number] - Rona Amor Initial Review: 09/03/2020 Planned Disposi: 06 - Discharged/Trans to Home Under Care of Organized Home Health Service in Anticipation of Skilled Care Final Discharge: 06 - Discharged/Trans to Home Under Care of Organized Home Health Service in Anticipation of Skilled Care Final Reviewer : [id number] : Murali Stoddard Final Review : 09/07/[address] Entered Date Type Reviewer 09/07/20 18:52 CT Discharge Planning Murali Stoddard Comment CLINICALS FAXED TO [facility] [phone] 09/07/20 18:48 CT Discharge Planning Murali Stoddard Comment Received call back from [facility] services. Spoke with Beth. Beth stated that she would like for the clinicals to be faxed directly to her munitions handler supervisor at [phone]. Beth stated that the patient was discharged from [facility] yesterday on the 09-06-20. Will fax clinicals soon. CM will continue to follow and will assist as needed with dc plans/needs. 09/07/20 16:00 CT Discharge Planning Murali Stoddard Comment [facility]UE [facility]. CM met with patient to complete DC plan and to evaluate needs. Patient lives independently at home with her grandson, Campbell Huerta. At discharge, the patient plans to return home and feels this is a safe discharge. Patient stated that she fills her medications without problems at [facility] and her primary physician is Dr. Acevedo. Patient stated that her home is safe and has electricity and water. Patient stated that she has a ramp to enter the house. CM discussed availability of home health, rehab services, and medical equipment. Patient declined SNF, IPR, and DME. Patient stated that she has a Riding Scooter, rolling walker, and a wheelchair. Patient stated that she is current with [facility] for wound care. Clinicals faxed to [place]. Attempted to call [place]. Left message for call back with the Answering service. Awaiting data warehouse consultant nurse to call back. CHERRIE signed and placed on chart. Patient inquired about her medications stating that she is ok to go home as long as her Lyrica, Dilaudid, and Linzess medications are prescribed at [place]. Patient voiced no other needs at this time and is satisfied with DC plan. Transportation provider at discharge will be with her grandson, Campbell. DC IMM delivered, explained, signed by the patient, and placed in chart. Signed form also left with the patient. CM will continue to follow and will assist as needed with dc plans/needs. DCP Focus Questions & Answers DCP Evaluation Patient and/or caregiver agree upon recommended Yes discharge plan? Family / Caregiver's ability to cope with chronic a. Adequate (ability to meet patient's illness: medical needs, ensures patient attends medical appts.) Patient's current cognitive status: *Oriented to person, place, situation, time and present Patient's ability to cope with chronic illness d. No chronic illness Patient gives permission to discuss discharge Campbell shaikh, plans with: (name, relationship and number) [phone] Does the patient have the ability to pay for or Yes attain post discharge needs / services? Functional screen assessment: Basic needs can adequately be met by self Physical Status: Mobility impaired Physical Status: Independent with ADL's Equipment needed for post hospitalization: None Is there a likelihood that the patient will Yes require additional services to return to the preadmission environment? Living Arrangements: Home with Extended Family Partial Dependence, assistance required for: Ambulation / Mobility Patient with capacity for self-care or can be Yes cared for in same environment as prior to hospitalization? Living arrangements comments: Lives with Grandson Baseline cognitive status: *Oriented to person, place, situation, time and present Physical environment modification needed / No anticipated for discharge: Medication Management: Patient states can read and understand medication labels Medication Management: Patient states can afford medications Planned post hospital services available for Yes patient? Pharmacy name(s): [facility] [employer] Planned post hospital services covered by Yes insurance plan? Does Patient have transportation to get home and Yes to follow-up medical appointments when discharged from the hospital? Would patient like to participate in any Care Not applicable Coordination programs (if applicable): Does the patient have electricity at home? Yes Does the patient have running water in their Yes house? Equipment in use: Wheelchair Equipment in use: Walker - Rolling Equipment in use: Shower Chair Equipment in use: Scooter Mental health screen: No mental health history DCP Re-evaluation Would patient like to participate in any Care Not applicable Coordination programs (if applicable): [facility] SHAGGY AGUAYO MR#: [id number] /Age/Sex/Egmroy17-Mug-81 /65/F /W Attending Physician Name: RANJANA GUDINO [id number] Patient Account:[id number] [facility] Page -1 of 1 All edits/amendments must be made on the electronic document DICTATION DATE: 09/09/201247 MILL REPRESENTATIVE: ANDREW 09/09/20 124 RPT#: [id number] DC DATE:09/08/20 STATUS: DIS IN [facility] [address] [place] [address] END OF REPORT
== END 2020-09-08 13:46 | disposition home health service (06) | DRG 74 ==
LOC: D.MS 16:42
PROVIDERS: Emergency Medicine; ADMIT Emergency Medicine; ATTEND Emergency Medicine
DX: E11.43 Type 2 diabetes mellitus with diabetic autonomic (poly)neuropathy (principal); I13.0 Hypertensive heart and chronic kidney disease with heart failure and stage 1 through stage 4 chronic kidney disease, or unspecified chronic kidney disease; I50.30 Unspecified diastolic (congestive) heart failure; N17.9 Acute kidney failure, unspecified; K31.84 Gastroparesis; E11.22 Type 2 diabetes mellitus with diabetic chronic kidney disease; N18.9 Chronic kidney disease, unspecified; G89.4 Chronic pain syndrome; Z79.01 Long term (current) use of anticoagulants; Z95.0 Presence of cardiac pacemaker; J44.9 Chronic obstructive pulmonary disease, unspecified; E78.5 Hyperlipidemia, unspecified; E03.9 Hypothyroidism, unspecified; K21.9 Gastro-esophageal reflux disease without esophagitis; G47.33 Obstructive sleep apnea (adult) (pediatric); F41.8 Other specified anxiety disorders; E21.3 Hyperparathyroidism, unspecified; I83.009 Varicose veins of unspecified lower extremity with ulcer of unspecified site; E86.0 Dehydration; K59.09 Other constipation; D64.9 Anemia, unspecified

== ENCOUNTER → 2020-09-10 | Emergency (ER) | payer OTHER ==
[~2020-09-10] VITALS: Ht 177.8 cm; Wt 120.5 kg
[~2020-09-10] MED LIST changes: +DILAUDID4 MG PO
[2020-09-10 17:25] VITALS: Ht 177.8 cm; Wt 120.5 kg
[2020-09-10 18:20] LABS: CALC OSMOLALITY 282 mosm/kg (275-300); CALCIUM 9.1 mg/dL (8.5-10.1); CARBON DIOXIDE 32.7 mmol/L (21.0-32.0); CHLORIDE - SERUM 104 mmol/L (98-107); CREATININE - SERUM 1.3 mg/dL (0.6-1.3); GLUCOSE 128 mg/dL (74-106); POTASSIUM - SERUM 3.6 mmol/L (3.5-5.1); SODIUM 142 mmol/L (136-145); UREA NITROGEN 7 mg/dL (7-18); eGFR NON AFRICAN AMERICAN 44 mL/min (90-120)
[2020-09-10 18:26] LABS: BASOPHILS 0.1 % (0-2); HEMATOCRIT 32.7 % (36.0-48.0); HEMOGLOBIN 10.2 g/dL (12-16); IMMATURE GRANULOCYTES 0.3 % (0-5); LYMPHOCYTES 12.5 % (15-50); MCH 28.7 pg (26.0-34.0); MCHC 31.2 g/dL (31.0-37.0); MCV 91.9 fL (80.0-100.0); MEAN PLATELET VOLUME 10.4 fL (7.4-10.4); MONOCYTES 4.8 % (2-11); NEUTROPHIL ABS# 7.15 10x3/uL (1.56-6.13); NEUTROPHILS 81.3 % (40-80); PLATELET COUNT 306 10x3/uL (130-400); RBC 3.56 10x6/uL (4.00-5.40); RDW 13.7 % (11.5-14.5); WBC 8.8 10x3/uL (4.8-10.8)
[2020-09-10 18:36] LABS: ALBUMIN 3.1 g/dL (3.4-5.0); ALKALINE PHOSPHATASE 116 U/L (30-120); ALT (SGPT) 18 U/L (10-68); AMYLASE - SERUM 12 U/L (25-115); BILIRUBIN - TOTAL 0.52 mg/dL (0.2-1.3); CKMB 0.4 U/L (0.0-3.6); CREATINE KINASE 110 UL (21-215); MAGNESIUM - SERUM 1.7 mg/dL (1.8-2.4); PROTEIN - SERUM 7.3 g/dL (6.4-8.2)
[2020-09-10 18:39] LABS: LIPASE 20 U/L (73-393); TROPONIN-I < 0.017 ng/mL (0.000-0.060)
== END | disposition home or self-care (01) ==
LOC: D.ER 17:23
PROVIDERS: Family Medicine
DX: R11.10 Vomiting, unspecified (principal); E83.42 Hypomagnesemia; E11.40 Type 2 diabetes mellitus with diabetic neuropathy, unspecified; Z86.73 Personal history of transient ischemic attack (TIA), and cerebral infarction without residual deficits; N18.9 Chronic kidney disease, unspecified; I12.9 Hypertensive chronic kidney disease with stage 1 through stage 4 chronic kidney disease, or unspecified chronic kidney disease; E11.22 Type 2 diabetes mellitus with diabetic chronic kidney disease; Z79.4 Long term (current) use of insulin

== ENCOUNTER 2020-09-17 16:03 | Inpatient (IN) | payer OTHER ==
[~2020-09-17] VITALS: Ht 177.8 cm; Wt 117.9 kg
[~2020-09-17 16:03] MED LIST changes: +LANTUS INS100 UNITS/ SC; -LANTUS INSULIN10 ML SC
[2020-09-17] MEDS ORDERED: MAGNESIUM PO (16:33)
[2020-09-17 16:56] LABS: BASOPHILS 0.3 % (0-2); EOSINOPHILS 0.1 % (0-7); HEMATOCRIT 37.8 % (36.0-48.0); HEMOGLOBIN 12.1 g/dL (12-16); IMMATURE GRANULOCYTES 0.3 % (0-5); LYMPHOCYTE ABS# 1.43 10x3/uL (1.18-3.74); LYMPHOCYTES 13.9 % (15-50); MCH 28.8 pg (26.0-34.0); MEAN PLATELET VOLUME 9.9 fL (7.4-10.4); MONOCYTES 4.9 % (2-11); NEUTROPHIL ABS# 8.29 10x3/uL (1.56-6.13); NEUTROPHILS 80.5 % (40-80); PLATELET COUNT 332 10x3/uL (130-400); RDW 13.8 % (11.5-14.5); WBC 10.3 10x3/uL (4.8-10.8)
[2020-09-17 17:15] LABS: APTT 29.4 SECONDS (22.8-39.4); CALC OSMOLALITY 278 mosm/kg (275-300); CALCIUM 9.8 mg/dL (8.5-10.1); CARBON DIOXIDE 29.5 mmol/L (21.0-32.0); CHLORIDE - SERUM 98 mmol/L (98-107); CREATININE - SERUM 1.5 mg/dL (0.6-1.3); GLUCOSE 144 mg/dL (74-106); INR 1.47 (0.85-1.17); POTASSIUM - SERUM 3.4 mmol/L (3.5-5.1); PROTIME 16.5 SECONDS (11.6-15.0); SODIUM 139 mmol/L (136-145); UREA NITROGEN 8 mg/dL (7-18); eGFR NON AFRICAN AMERICAN 37 mL/min (90-120)
[2020-09-17 17:24] LABS: ALBUMIN 3.7 g/dL (3.4-5.0); ALKALINE PHOSPHATASE 139 U/L (30-120); ALT (SGPT) 19 U/L (10-68); BILIRUBIN - TOTAL 0.63 mg/dL (0.2-1.3); PROTEIN - SERUM 8.6 g/dL (6.4-8.2); TROPONIN-I < 0.017 ng/mL (0.000-0.060)
[2020-09-17 17:31] LABS: LIPASE 43 U/L (73-393)
[2020-09-17 18:21] VITALS: BP 175/71
[2020-09-17 22:09] VITALS: BMI 37.3
[2020-09-17 22:24] LABS: HEMATOCRIT 37.7 % (36.0-48.0); HEMOGLOBIN 11.9 g/dL (12-16)
[2020-09-18 04:00] VITALS: BP 191/100
[2020-09-18 05:42] LABS: BASOPHILS 0.1 % (0-2); EOSINOPHILS 0.5 % (0-7); HEMATOCRIT 36.5 % (36.0-48.0); HEMOGLOBIN 11.5 g/dL (12-16); IMMATURE GRANULOCYTES 0.3 % (0-5); LYMPHOCYTE ABS# 1.24 10x3/uL (1.18-3.74); LYMPHOCYTES 16.4 % (15-50); MCH 28.6 pg (26.0-34.0); MCHC 31.5 g/dL (31.0-37.0); MCV 90.8 fL (80.0-100.0); MEAN PLATELET VOLUME 10.1 fL (7.4-10.4); MONOCYTES 6.9 % (2-11); NEUTROPHIL ABS# 5.74 10x3/uL (1.56-6.13); NEUTROPHILS 75.8 % (40-80); PLATELET COUNT 311 10x3/uL (130-400); RBC 4.02 10x6/uL (4.00-5.40); RDW 13.8 % (11.5-14.5)
[2020-09-18 06:13] LABS: ALBUMIN 3.2 g/dL (3.4-5.0); ANION GAP 11.2 mmol/L (8-16); BILIRUBIN - TOTAL 0.62 mg/dL (0.2-1.3); CALCIUM 9.3 mg/dL (8.5-10.1); CARBON DIOXIDE 31.6 mmol/L (21.0-32.0); CREATININE - SERUM 1.4 mg/dL (0.6-1.3); MAGNESIUM - SERUM 2.3 mg/dL (1.8-2.4); PHOSPHOROUS 3.7 mg/dL (2.5-4.9); POTASSIUM - SERUM 3.8 mmol/L (3.5-5.1); PROTEIN - SERUM 7.6 g/dL (6.4-8.2)
[2020-09-18 06:23] LABS: WBC 7.6 10x3/uL (4.8-10.8)
--- NOTE | 2020-09-18 07:53 | NUR ---
CALLED TO ROOM. PT HAS IMPLANTED FENTANL PUMP IN ABDOMEN THAT SHE CAN BOLUS NEEDED WITH TRANSMITTER IN BAG AT BEDSIDE. NO IV ACCESS AT THIS MOMENT AND IS REFUSING TO HAVE CVL PLACED. PRIMARY NURSE WILL PLACE A LINE WITH ULTRASOUND. CALL LIGHT IN REACH. NO FURTHER COMPLAINTS AT PRESENT
[2020-09-18 08:49] VITALS: BP 181/87
--- NOTE | 2020-09-18 10:41 | NUR ---
CONSULT TO VOISE CALLED BY ED TECH THIS AM- REPORTED BY DINING ROOM HOST. rn CONFIRMED @ 1030.
[2020-09-18 12:19] VITALS: BP 146/68
[2020-09-18 12:52] LABS: HEMATOCRIT 36.4 % (36.0-48.0); HEMOGLOBIN 11.4 g/dL (12-16)
[2020-09-18 15:49] LABS: BILIRUBIN NEGATIVE (NEGATIVE); KETONE SMALL mg/dL (NEGATIVE); NITRITE POSITIVE (NEGATIVE); UROBILINOGEN NORMAL mg/dL (< 2); WHITE CELLS - URINE 0-5 HPF (0-4)
[2020-09-18 15:50] LABS: BACTERIA MANY HPF (NONE SEEN); SQUAMOUS EPITHELIAL 0-5 HPF (0-4)
[2020-09-18 18:40] VITALS: BP 139/81
[2020-09-18 20:00] VITALS: BP 145/74
[2020-09-18 21:04] LABS: HEMATOCRIT 33.8 % (36.0-48.0); HEMOGLOBIN 10.6 g/dL (12-16)
[2020-09-19] VITALS: BP 152/87
--- NOTE | 2020-09-19 00:58 | NUR ---
I have reviewed this patient and I concur with the Shift Assessment completed by the Licensed Practical Nurse today this shift.
[2020-09-19 04:00] VITALS: BP 141/47
[2020-09-19 06:35] LABS: BASOPHILS 0.1 % (0-2); EOSINOPHILS 1.5 % (0-7); HEMATOCRIT 33.3 % (36.0-48.0); HEMOGLOBIN 10.3 g/dL (12-16); IMMATURE GRANULOCYTES 0.3 % (0-5); LYMPHOCYTE ABS# 1.37 10x3/uL (1.18-3.74); LYMPHOCYTES 17.6 % (15-50); MCH 28.2 pg (26.0-34.0); MCHC 30.9 g/dL (31.0-37.0); MCV 91.2 fL (80.0-100.0); MEAN PLATELET VOLUME 9.9 fL (7.4-10.4); MONOCYTES 8.4 % (2-11); NEUTROPHIL ABS# 5.61 10x3/uL (1.56-6.13); NEUTROPHILS 72.1 % (40-80); PLATELET COUNT 285 10x3/uL (130-400); RBC 3.65 10x6/uL (4.00-5.40); WBC 7.8 10x3/uL (4.8-10.8)
[2020-09-19 06:57] LABS: ALBUMIN 2.8 g/dL (3.4-5.0); ANION GAP 9.5 mmol/L (8-16); BILIRUBIN - TOTAL 0.48 mg/dL (0.2-1.3); CALCIUM 8.9 mg/dL (8.5-10.1); CARBON DIOXIDE 29.8 mmol/L (21.0-32.0); CREATININE - SERUM 1.3 mg/dL (0.6-1.3); MAGNESIUM - SERUM 2.1 mg/dL (1.8-2.4); PHOSPHOROUS 3.4 mg/dL (2.5-4.9); POTASSIUM - SERUM 3.3 mmol/L (3.5-5.1); PROTEIN - SERUM 6.9 g/dL (6.4-8.2)
[2020-09-19 08:42] VITALS: BP 161/78
[2020-09-19 12:53] VITALS: BMI 37.3
[2020-09-19 13:25] VITALS: BP 154/86
[2020-09-19 13:29] LABS: HEMATOCRIT 38.4 % (36.0-48.0); HEMOGLOBIN 12.1 g/dL (12-16)
[2020-09-19 17:41] VITALS: BP 155/82
--- NOTE | 2020-09-19 19:06 | NUR ---
0700 BEDSIDE REPORT RECEIVED ASSESSMENT COMPLETE
--- NOTE | 2020-09-19 19:07 | NUR ---
1000 K-DUR GIVEN PER ELECTROLYTE PROTOCOL
[2020-09-19 20:00] VITALS: BP 130/64
[2020-09-19 21:20] LABS: HEMATOCRIT 34.6 % (36.0-48.0); HEMOGLOBIN 10.9 g/dL (12-16)
[2020-09-20] VITALS: BP 144/67
[2020-09-20 04:00] VITALS: BP 157/73
[2020-09-20 05:39] LABS: BASOPHILS 0.2 % (0-2); EOSINOPHILS 2.3 % (0-7); HEMATOCRIT 30.7 % (36.0-48.0); HEMOGLOBIN 9.8 g/dL (12-16); IMMATURE GRANULOCYTES 0.3 % (0-5); LYMPHOCYTE ABS# 1.88 10x3/uL (1.18-3.74); LYMPHOCYTES 19.4 % (15-50); MCH 29.2 pg (26.0-34.0); MCHC 31.9 g/dL (31.0-37.0); MCV 91.4 fL (80.0-100.0); MEAN PLATELET VOLUME 9.7 fL (7.4-10.4); MONOCYTES 6.9 % (2-11); NEUTROPHIL ABS# 6.87 10x3/uL (1.56-6.13); NEUTROPHILS 70.9 % (40-80); PLATELET COUNT 268 10x3/uL (130-400); RBC 3.36 10x6/uL (4.00-5.40); RDW 14.1 % (11.5-14.5); WBC 9.7 10x3/uL (4.8-10.8)
[2020-09-20 06:02] LABS: ALBUMIN 2.5 g/dL (3.4-5.0); ANION GAP 9.6 mmol/L (8-16); BILIRUBIN - TOTAL 0.38 mg/dL (0.2-1.3); CALCIUM 8.7 mg/dL (8.5-10.1); CARBON DIOXIDE 28.9 mmol/L (21.0-32.0); CREATININE - SERUM 1.2 mg/dL (0.6-1.3); MAGNESIUM - SERUM 1.8 mg/dL (1.8-2.4); PHOSPHOROUS 3.1 mg/dL (2.5-4.9); POTASSIUM - SERUM 3.5 mmol/L (3.5-5.1); PROTEIN - SERUM 6.1 g/dL (6.4-8.2)
[2020-09-20 08:46] VITALS: BP 152/100
[2020-09-20 12:00] VITALS: BP 157/104
[2020-09-20 13:31] LABS: HEMATOCRIT 33.9 % (36.0-48.0); HEMOGLOBIN 10.4 g/dL (12-16)
--- NOTE | 2020-09-20 14:56 | NUR ---
PATIENT REFUSED THERAPY.
[2020-09-20 17:11] VITALS: BP 152/85
[2020-09-20 21:13] VITALS: BP 161/83
[2020-09-20 21:41] LABS: HEMOGLOBIN 9.4 g/dL (12-16)
[2020-09-21] VITALS (7 sets, daily range): BP systolic 129–161; BP diastolic 65–92
--- NOTE | 2020-09-21 02:53 | NUR ---
Assumed care of pt after report/rounds. Pt A&OX4 and has had no c/o pain. Pt did request benedryl at HS. Reviewed new skin care routine with pt. Pt also continues to refuse SCD's for venous stasis wounds to BLE's [place] have dressings which are CDI. Pt does not want Plexys either. Will continue to encourage. Did have a discussion about medications as well. IV that was resited last night to LFA remains infusing appropriately without s/sx of infiltrate. Pt is in bed resting at this time. Utilizing a bedside commode with minimal assist when awake.
[2020-09-21 07:21] LABS: BASOPHILS 0.2 % (0-2); EOSINOPHILS 5.5 % (0-7); HEMATOCRIT 30.4 % (36.0-48.0); HEMOGLOBIN 9.2 g/dL (12-16); IMMATURE GRANULOCYTES 0.2 % (0-5); LYMPHOCYTE ABS# 2.06 10x3/uL (1.18-3.74); LYMPHOCYTES 32.3 % (15-50); MCH 28.2 pg (26.0-34.0); MCHC 30.3 g/dL (31.0-37.0); MCV 93.3 fL (80.0-100.0); MEAN PLATELET VOLUME 9.8 fL (7.4-10.4); MONOCYTES 6.3 % (2-11); NEUTROPHIL ABS# 3.55 10x3/uL (1.56-6.13); NEUTROPHILS 55.5 % (40-80); PLATELET COUNT 272 10x3/uL (130-400); RBC 3.26 10x6/uL (4.00-5.40); RDW 14.2 % (11.5-14.5)
[2020-09-21 07:27] LABS: WBC 6.4 10x3/uL (4.8-10.8)
[2020-09-21 07:28] LABS: ALBUMIN 2.5 g/dL (3.4-5.0); ANION GAP 8.3 mmol/L (8-16); BILIRUBIN - TOTAL 0.31 mg/dL (0.2-1.3); CALCIUM 8.4 mg/dL (8.5-10.1); CARBON DIOXIDE 30.6 mmol/L (21.0-32.0); CREATININE - SERUM 1.2 mg/dL (0.6-1.3); MAGNESIUM - SERUM 1.7 mg/dL (1.8-2.4); PHOSPHOROUS 3.5 mg/dL (2.5-4.9); POTASSIUM - SERUM 3.9 mmol/L (3.5-5.1); PROTEIN - SERUM 6.2 g/dL (6.4-8.2)
[2020-09-21 13:50] LABS: HEMATOCRIT 32.5 % (36.0-48.0)
[2020-09-21 14:37] LABS: BILIRUBIN NEGATIVE (NEGATIVE); KETONE NEGATIVE (NEGATIVE); NITRITE NEGATIVE (NEGATIVE); UROBILINOGEN NORMAL mg/dL (< 2)
[2020-09-21 21:58] LABS: HEMATOCRIT 31.3 % (36.0-48.0); HEMOGLOBIN 9.7 g/dL (12-16)
--- NOTE | 2020-09-22 04:09 | NUR ---
Assumed care of pt after report/rounds. Pt remains A&OX4 and verbalizes wants/needs without hesitation. Pt did have some nausea last night with Zofran given and eff results achieved. Pt's IV became non-viable around 2330 and was leaking around same. Resited to left hand after 2 successful sticks but, to close to valves and veins blew when flushed to RFA. Pt also crying last night over frustrations re:disease process. Therapeutic communication done and disease process discussion along with pt's current goals both in and out of the hospital. Pt did verbalize she was weaning self down on her fentanyl, utilizing implanted pump. Did discuss the possibility of emotions changing when doing same. Pt is in bed resting at this time. Dressings to BLE's are CDI.
[2020-09-22 05:30] LABS: BASOPHILS 0.4 % (0-2); HEMATOCRIT 32.8 % (36.0-48.0); IMMATURE GRANULOCYTES 0.4 % (0-5); LYMPHOCYTES 31.1 % (15-50); MCH 28.1 pg (26.0-34.0); MCHC 30.5 g/dL (31.0-37.0); MCV 92.1 fL (80.0-100.0); MONOCYTES 5.5 % (2-11); NEUTROPHIL ABS# 4.25 10x3/uL (1.56-6.13); NEUTROPHILS 57.6 % (40-80); RBC 3.56 10x6/uL (4.00-5.40); RDW 14.2 % (11.5-14.5); WBC 7.4 10x3/uL (4.8-10.8)
[2020-09-22 05:40] LABS: PLATELET COUNT 329 10x3/uL (130-400)
[2020-09-22 05:57] LABS: ALBUMIN 2.8 g/dL (3.4-5.0); BILIRUBIN - TOTAL 0.27 mg/dL (0.2-1.3); CALCIUM 8.9 mg/dL (8.5-10.1); CARBON DIOXIDE 32.2 mmol/L (21.0-32.0); CREATININE - SERUM 1.2 mg/dL (0.6-1.3); MAGNESIUM - SERUM 1.7 mg/dL (1.8-2.4); POTASSIUM - SERUM 4.2 mmol/L (3.5-5.1); PROTEIN - SERUM 6.7 g/dL (6.4-8.2)
[2020-09-22 06:42] VITALS: BP 115/61
[2020-09-22 09:47] VITALS: BP 148/83
[2020-09-22 13:03] LABS: HEMATOCRIT 31.6 % (36.0-48.0); HEMOGLOBIN 9.7 g/dL (12-16)
[2020-09-22 13:51] VITALS: BP 139/73
[2020-09-22 18:20] VITALS: BP 160/81
--- NOTE | 2020-09-22 20:56 | NUR ---
Assumed care of pt after report/rounds. Pt is A&OX4 but, sleepy today. Mid ABD is slightly rigid with hypoactive bowel sounds today. Pt is scheduled for EGD in AM and consent has been obtained for same. Pt is also c/o feeling like her pacemaker is "misfiring". This nurse has paged the o/c provider to notify of same and awaiting call back.
[2020-09-22 21:34] LABS: HEMATOCRIT 33.1 % (36.0-48.0); HEMOGLOBIN 10.2 g/dL (12-16)
--- NOTE | 2020-09-23 04:06 | NUR ---
Pt is resting in bed an dhas been NPO since midnight. No c/o pain/discomfort.
[2020-09-23 07:12] LABS: HEMATOCRIT 32.2 % (36.0-48.0); HEMOGLOBIN 10.1 g/dL (12-16)
[2020-09-23 10:36] LABS: BASOPHILS 0.3 % (0-2); EOSINOPHILS 5.1 % (0-7); HEMATOCRIT 32.4 % (36.0-48.0); IMMATURE GRANULOCYTES 0.3 % (0-5); LYMPHOCYTE ABS# 1.24 10x3/uL (1.18-3.74); LYMPHOCYTES 18.2 % (15-50); MCH 28.7 pg (26.0-34.0); MCHC 30.9 g/dL (31.0-37.0); MCV 92.8 fL (80.0-100.0); MEAN PLATELET VOLUME 10.1 fL (7.4-10.4); MONOCYTES 5.3 % (2-11); NEUTROPHIL ABS# 4.82 10x3/uL (1.56-6.13); NEUTROPHILS 70.8 % (40-80); PLATELET COUNT 288 10x3/uL (130-400); RBC 3.49 10x6/uL (4.00-5.40); RDW 14.1 % (11.5-14.5); WBC 6.8 10x3/uL (4.8-10.8)
[2020-09-23 10:46] LABS: ANION GAP 9.2 mmol/L (8-16); CALCIUM 8.8 mg/dL (8.5-10.1); CARBON DIOXIDE 32.6 mmol/L (21.0-32.0); CREATININE - SERUM 1.1 mg/dL (0.6-1.3); POTASSIUM - SERUM 3.8 mmol/L (3.5-5.1)
[2020-09-23 12:44] VITALS: BP 149/69
--- NOTE | 2020-09-23 13:30 | NUR ---
PATIENT ASK TO BE TAKEN OFF PT LIST STATS SHE IS TRANSFERING ON HER OWN
--- NOTE | 2020-09-23 13:58 | NUR ---
NUTRITION FOLLOW UP: COMMENTS: Patient now on Full Liquid diet. 73% avg for last 3 meals eaten. No No recent weight changes. DIET: Full Liquid PO INTAKE: 73% avg for last 3 meals WEIGHT: 09/17-260 lbs; 09/19-260 lbs BM: None recorded at this time SIG MEDS: Probiotic, Reglan, Calcitriol, Humalog, Synthroid, KCl, MagOx, Zofran; NS @ KVO SIG LABS: BUN-6(L), Mg-1.7(L), Albumin-2.8(L) Glucose- 172, 125, 136, 140, 150 RECOMMENDATIONS: Advance Diet when medically feasible RD available for nutrition support recs if needed Encourage PO intake RD to follow up on 09/25
[2020-09-23 17:06] VITALS: BP 166/93
--- NOTE | 2020-09-23 19:48 | NUR ---
1600 - BLE DRESSINGS REMOVED. BLE CLEANED WITH NORMAL SALINE AND COVERED WITH PT DRESSING FROM HOME THEN WRAPPED IN KERLEX AND COMPRESSION ROLL PER PT REQUEST.
[2020-09-24] VITALS: BP 155/90
[2020-09-24 04:00] VITALS: BP 162/85
[2020-09-24 05:48] LABS: BASOPHILS 0.2 % (0-2); EOSINOPHILS 4.9 % (0-7); HEMATOCRIT 30.9 % (36.0-48.0); HEMOGLOBIN 9.6 g/dL (12-16); IMMATURE GRANULOCYTES 0.3 % (0-5); LYMPHOCYTE ABS# 1.94 10x3/uL (1.18-3.74); LYMPHOCYTES 30.9 % (15-50); MCH 28.4 pg (26.0-34.0); MCHC 31.1 g/dL (31.0-37.0); MCV 91.4 fL (80.0-100.0); MEAN PLATELET VOLUME 9.9 fL (7.4-10.4); MONOCYTES 6.4 % (2-11); NEUTROPHIL ABS# 3.59 10x3/uL (1.56-6.13); NEUTROPHILS 57.3 % (40-80); PLATELET COUNT 259 10x3/uL (130-400); RBC 3.38 10x6/uL (4.00-5.40); WBC 6.3 10x3/uL (4.8-10.8)
[2020-09-24 06:02] LABS: ANION GAP 10.9 mmol/L (8-16); CALCIUM 8.4 mg/dL (8.5-10.1); CARBON DIOXIDE 29.7 mmol/L (21.0-32.0); CREATININE - SERUM 1.1 mg/dL (0.6-1.3); POTASSIUM - SERUM 3.6 mmol/L (3.5-5.1)
[2020-09-24 08:30] VITALS: BP 162/90
[2020-09-24 09:53] VITALS: Ht 177.8 cm; Wt 117.9 kg
[2020-09-24 14:00] VITALS: BP 161/95
[2020-09-24 17:29] VITALS: BP 171/85
[2020-09-24 20:00] VITALS: BP 154/84
[2020-09-25 04:00] VITALS: BP 152/84
--- NOTE | 2020-09-25 04:21 | NUR ---
Assumed care of pt last night after report/rounds. Pt A&OX4 and continues to verbalize wants/needs clearly and without difficulty. Pt teaching regarding Plexy's and SCD's done. Pt continues to refuse same. Did change outer wraps over bandages to venous stasis ulcers to BLE's. Scant serosang drainage on the bandages themselves, though pt would not allow this nurse to remove and inspect. Pt continues on O2 via NC and does have SOBOE. No c/o nausea or pain/discomfort from pt t/o the night. In bed resting at this time.
[2020-09-25 07:15] LABS: BASOPHILS 0.2 % (0-2); EOSINOPHILS 4.7 % (0-7); HEMATOCRIT 31.1 % (36.0-48.0); HEMOGLOBIN 9.7 g/dL (12-16); IMMATURE GRANULOCYTES 0.5 % (0-5); LYMPHOCYTE ABS# 1.96 10x3/uL (1.18-3.74); LYMPHOCYTES 30.8 % (15-50); MCH 28.4 pg (26.0-34.0); MCHC 31.2 g/dL (31.0-37.0); MCV 90.9 fL (80.0-100.0); MEAN PLATELET VOLUME 10.2 fL (7.4-10.4); MONOCYTES 6.3 % (2-11); NEUTROPHIL ABS# 3.67 10x3/uL (1.56-6.13); NEUTROPHILS 57.5 % (40-80); PLATELET COUNT 274 10x3/uL (130-400); RBC 3.42 10x6/uL (4.00-5.40); RDW 14.1 % (11.5-14.5); WBC 6.4 10x3/uL (4.8-10.8)
[2020-09-25 07:29] LABS: ANION GAP 9.7 mmol/L (8-16); POTASSIUM - SERUM 3.7 mmol/L (3.5-5.1)
[2020-09-25 08:47] VITALS: BP 155/81
--- NOTE | 2020-09-25 10:07 | NUR ---
RESTING IN BED, NO DISTRESS NOTED, CONT TO MONITOR SUGARS, O2 PER N AT 2,
[2020-09-25 12:25] VITALS: BP 152/83
--- NOTE | 2020-09-25 13:44 | NUR ---
Nutrition Re-Assessment POD2 EGD- large paraesophageal hernia Diet: Full Liquid PO intake: 100% x 3 meals yesterday Last BM: none since admit Wt: 260# (09/19/20) Meds noted: probiotics, abx, linzess, reglan, SSI Labs noted: POC Glu- 117(H), 151(H) Estimated nutrition needs: 1765-2125kcal (25-30kcal/kg IBW), 70-92gms protein (1-1.2gms/kg), and 1765-2125mL fluid (or per MD) Nutrition diagnosis: Altered GI function r/t dx paraesophageal hernia AEB difficulty eating. Nutrition Goals: -Diet to advance to GI Soft within 24-48hrs -Meet fluid needs -Stable weight DHS Recommendations/Interventions: -Continue to advance diet as tolerated. -RD will follow-up 09/27/20.
--- NOTE | 2020-09-25 15:51 | NUR ---
PT C/O FEELING TEARFUL TODAY, HIRA PINEDA
[2020-09-25 16:57] VITALS: BP 161/81
--- NOTE | 2020-09-25 17:28 | NUR ---
PT C/O HAVING EMESIS, REGLAN AND ZOFRAN GIVEN, CONT TO MONITOR
[2020-09-25 20:00] VITALS: BP 184/86
--- NOTE | 2020-09-26 00:58 | NUR ---
PT RESTING IN BED. PT STATED SHE WANTED HER BENADRYL TO HELP WITH HER ANXIETY. MEDICATION WAS GIVEN. NO OTHER COMPLAINTS AT THIS TIME. O2 VIA NASAL CANNULA IN PLACE. BED IN LOWEST POSITON WITH CALL MARTINEZ LIGHT IN REACH
[2020-09-26 04:00] VITALS: BP 125/69
[2020-09-26 06:11] LABS: BASOPHILS 0.2 % (0-2); EOSINOPHILS 6.1 % (0-7); HEMATOCRIT 31.1 % (36.0-48.0); HEMOGLOBIN 9.6 g/dL (12-16); IMMATURE GRANULOCYTES 0.5 % (0-5); LYMPHOCYTE ABS# 2.04 10x3/uL (1.18-3.74); LYMPHOCYTES 35.4 % (15-50); MCH 28.2 pg (26.0-34.0); MCHC 30.9 g/dL (31.0-37.0); MCV 91.2 fL (80.0-100.0); MEAN PLATELET VOLUME 10.3 fL (7.4-10.4); MONOCYTES 6.2 % (2-11); NEUTROPHIL ABS# 2.98 10x3/uL (1.56-6.13); NEUTROPHILS 51.6 % (40-80); PLATELET COUNT 272 10x3/uL (130-400); RBC 3.41 10x6/uL (4.00-5.40); RDW 14.1 % (11.5-14.5); WBC 5.8 10x3/uL (4.8-10.8)
[2020-09-26 06:20] LABS: CALCIUM 8.8 mg/dL (8.5-10.1); CARBON DIOXIDE 30.7 mmol/L (21.0-32.0); CREATININE - SERUM 1.1 mg/dL (0.6-1.3); POTASSIUM - SERUM 3.7 mmol/L (3.5-5.1)
[2020-09-26 08:48] VITALS: BP 127/71
[2020-09-26 12:46] VITALS: BP 157/84
[2020-09-26 17:11] VITALS: BP 155/76
[2020-09-26 20:23] VITALS: BP 106/64
--- NOTE | 2020-09-27 02:46 | NUR ---
PT HAS BEEN SLEEPING IN BED. EASY TO AROUSE. NO COMPLAINTS OF PAIN NOR DISCOMFORT NOTED AT THIS TIME. ABLE TO MAKE WANTS AND NEEDS KNOWN CLEARLY. BED IN LOWEST POSITION. CALL MARTINEZ LIGHT IN REACH.
[2020-09-27 05:46] LABS: BASOPHILS 0.3 % (0-2); EOSINOPHILS 5.5 % (0-7); HEMATOCRIT 31.9 % (36.0-48.0); IMMATURE GRANULOCYTES 0.2 % (0-5); LYMPHOCYTE ABS# 2.11 10x3/uL (1.18-3.74); MCH 28.7 pg (26.0-34.0); MCHC 31.3 g/dL (31.0-37.0); MCV 91.4 fL (80.0-100.0); MEAN PLATELET VOLUME 10.3 fL (7.4-10.4); MONOCYTES 6.1 % (2-11); NEUTROPHIL ABS# 3.04 10x3/uL (1.56-6.13); NEUTROPHILS 51.9 % (40-80); PLATELET COUNT 251 10x3/uL (130-400); RBC 3.49 10x6/uL (4.00-5.40); RDW 14.1 % (11.5-14.5); WBC 5.9 10x3/uL (4.8-10.8)
[2020-09-27 05:54] LABS: ANION GAP 9.1 mmol/L (8-16); CALCIUM 9.2 mg/dL (8.5-10.1); CARBON DIOXIDE 31.9 mmol/L (21.0-32.0); CREATININE - SERUM 1.1 mg/dL (0.6-1.3)
[2020-09-27 08:00] VITALS: BP 126/67
--- NOTE | 2020-09-27 10:31 | NUR ---
Nutrition Follow-up: Diet: Full Liquid PO intake: 100% x last 7 meals recorded. Patient states that she is tolerating the full liquid diet but that she is not ready to be advanced to Soft Mech. States that she has tried to be advanced twice and that she did not tolerate it. States that she has been vomiting for the past 2 months 2/2 an esophageal hernia and that she is afraid of vomiting and that it why she does not want her diet advanced. States that she does not have her teeth with her. She does want Boost BID Last BM: none recorded since admit Wt: 260# (09/19/20) Meds noted: probiotics, abx, linzess, reglan, SSI Labs noted: Glu 115(H), POC Glu 127(H) Recommend continue to advance diet as tolerated to Diabetic diet. Will add Boost BID. RD will follow-up 10/01/20.
[2020-09-27 11:00] VITALS: BP 87/50
[2020-09-27] MEDS ORDERED: ISOSORBIDE MONO30 M1 PO (12:51)
[2020-09-27] MEDS ORDERED: LIPITOR80 MG PO (12:51)
[2020-09-27] MEDS ORDERED: LINZESS145 MCG PO (12:52)
[2020-09-27] MEDS ORDERED: REGLAN10 MG PO (12:52)
[2020-09-27] MEDS ORDERED: SYMBICORT 16010.2 GM INH (12:52)
[2020-09-27] MEDS ORDERED: LEVOTHYROXINE50 MCG PO (12:52)
[2020-09-27] MEDS ORDERED: TUMS X-STR300 MG PO (12:52)
[2020-09-27] MEDS ORDERED: ROCALTROL0.25 MCG PO (12:53)
--- NOTE | 2020-09-27 13:56 | NUR ---
REHAB PRESCREEN NOTE: CHART REVIEWED. PT REFUSED HER PHYSICAL THERAPY EVALUATION, AND SPEECH THERAPY SIGNED OFF ON HER. SHE DOES HAVE OCCUPATIONAL THERAPY ORDERED, BUT THIS ALONE WILL NOT QUALIFY HER TO MEET REHAB REQUIREMENTS. IF SHE CHANGES HER MIND AND IS WILLING TO PARTICIPATE WITH PHYSICAL THERAPY, WE WILL BE GLAD TO LOOK AT HER AGAIN. THANK YOU FOR THIS REFERRAL. LORELEI WARE RN CLINICAL LIAISON, INPATIENT REHAB.
--- NOTE | 2020-09-27 14:27 | MORECARE ---
CASE MANAGEMENT DISCHARGE SUMMARY PATIENT: SHAGGY AGUAYO UNIT: [id number] ADM DATE: 09/20/20 AGE: 65 : 59 SEX: F ROOM/BED: D.2206 AUTHOR: ARTEM PRIETO PHYSICIAN: REFERRING PHYSICIAN: CONSUELO FONSECA MD DATE OF SERVICE: 09/27/20 Case Management Discharge Planning Summary COMMENTS ENTERED DATE: 09/18/20 14:55 CT COMMENT TYPE: Discharge Planning REVIEWER: Rona MARTINEZ SERVED AND EXPLAINED, COPY GIVEN AND PLACED IN CHART DCP REVIEW SUMMARY ANTICIPATED D/C DATE: EXPECTED LOS : CASE STATUS: DCP Initiated INITIAL REVIEW: 09/17/2020 INITIAL REVIEWER: Rona Amor FINAL DISCHARGE DISPOSITION: 06 : Discharged/Trans to Home Under Care of Organized Home Health Service in Anticipation of Skilled Care FINAL REVIEWER: FINAL REVIEW DATE: DCP Focus Questions & Answers DCP Screen QUESTION: ANSWER High Risk Factors: : 3 or more ED visits within the last 60 days DCP Evaluation QUESTION: ANSWER Patient's ability to cope with chronic illness : d. No chronic illness Would patient like to participate in any Care Coordination programs (if applicable): : Not applicable Mental health screen: : No mental health history DCP Re-evaluation QUESTION: ANSWER Would patient like to participate in any Care Coordination programs (if applicable): : Not applicable PATIENT: SHAGGY AGUAYO ENCOUNTER: [id number] MEDICAL RECORD#: [id number] ADMISSION DATE: 09/20/2020 DISCHARGE DATE: ATTENDING MD: CONSUELO LANE : AGE: 65 MARITAL STATUS: W DC PLAN ID: [id number] FACILITY: [facility] PRINTED ON: 09/27/20 14:27 CT All edits/amendments must be made on the electronic document DICTATION DATE: 09/27/201426 [place] [facility] COORDINATOR: ANDREW 09/27/201426 RPT#: [id number] DC DATE: STATUS: ADM IN [facility] [address] [place] [address] END OF REPORT
--- NOTE | 2020-09-27 14:42 | MORECARE ---
CASE MANAGEMENT DISCHARGE SUMMARY PATIENT: SHAGGY AGUAYO UNIT: [id number] ADM DATE: 09/20/20 AGE: 65 : 59 SEX: F ROOM/BED: D.2206 AUTHOR: ARTEM PRIETO PHYSICIAN: REFERRING PHYSICIAN: CONSUELO FONSECA MD DATE OF SERVICE: 09/27/20 Case Management Discharge Planning Summary COMMENTS ENTERED DATE: 09/18/20 14:55 CT COMMENT TYPE: Discharge Planning REVIEWER: Rona MARTINEZ SERVED AND EXPLAINED, COPY GIVEN AND PLACED IN CHART DCP REVIEW SUMMARY ANTICIPATED D/C DATE: EXPECTED LOS : CASE STATUS: DCP Initiated INITIAL REVIEW: 09/17/2020 INITIAL REVIEWER: Rona Amor FINAL DISCHARGE DISPOSITION: 06 : Discharged/Trans to Home Under Care of Organized Home Health Service in Anticipation of Skilled Care FINAL REVIEWER: FINAL REVIEW DATE: DCP Focus Questions & Answers DCP Screen QUESTION: ANSWER High Risk Factors: : 3 or more ED visits within the last 60 days DCP Evaluation QUESTION: ANSWER Family / Caregiver's ability to cope with chronic illness: : a. Adequate (ability to meet patient's medical needs, ensures patient attends medical appts.) Patient gives permission to discuss discharge plans with: (name, relationship and number) : GRANDSON Patient's ability to cope with chronic illness : b. Minimal (2 - 3 ED visits in 6 mos., limited financial resources, occasionally misses appts.) Patient's current cognitive status: : *Oriented to person, place, situation, time and present Patient and/or caregiver agree upon recommended discharge plan? : Yes Physical Status: : Compromised nutritional status Physical Status: : Compromised skin integrity Physical Status: : Partial care dependence Family / Caregiver's ability to cope with chronic illness: : a. Adequate (ability to meet patient's medical needs, ensures patient attends medical appts.) Functional screen assessment: : Basic needs can adequately be met by self Does the patient have the ability to pay for or attain post discharge needs / services? : Yes Partial Dependence, assistance required for: : Ambulation / Mobility Partial Dependence, assistance required for: : Bathing Living Arrangements: : Home with Extended Family Is there a likelihood that the patient will require additional services to return to the preadmission environment? : N/A Living arrangements comments: : LIVE AT HOME WITH GRANDSON Baseline cognitive status: : *Oriented to person, place, situation, time and present Patient with capacity for self-care or can be cared for in same environment as prior to hospitalization? : Yes Results of this evaluation have been discussed with: : Family Other Equipment comments: : HAS ALL DME THAT IS NEEDED Facility / Agency name and contact information from Question 3 (if applicable): : CURRENT WITH [facility] Medication Management: : Patient states can afford medications Medication Management: : Evidence of High Risk Meds (check hospital policy) Physical environment referral comments (if applicable): : HAS A RAMP Pharmacy name(s): : [facility] [address] [facility] Planned post hospital services available for patient? : Yes Does Patient have transportation to get home and to follow-up medical appointments when discharged from the hospital? : Yes Planned post hospital services covered by insurance plan? : Yes Would patient like to participate in any Care Coordination programs (if applicable): : Not applicable Does the patient have electricity at home? : Yes Does the patient have running water in their house? : Yes Equipment in use: : Bedside Commode Equipment in use: : Glucometer Equipment in use: : Home Oxygen with Nasal Cannula Equipment in use: : Nebulizer Equipment in use: : Scooter Equipment in use: : Shower Chair Equipment in use: : Walker - Rollator Equipment in use: : Walker - Rolling Equipment in use: : Wheelchair Equipment in use: : Wound Dressing Equipment agency name and contact information: : [facility] ( GRANDSON) [phone] Mental health screen: : No mental health history Psychosocial status: : Independent adult (65+) Abuse/Neglect: : None Resources / Services in place: : Home health Resources / Services in place: : Wound Care Contact information for resources in use: : [facility] DCP Re-evaluation QUESTION: ANSWER Would patient like to participate in any Care Coordination programs (if applicable): : Not applicable PATIENT: SHAGGY AGUAYO ENCOUNTER: [id number] MEDICAL RECORD#: [id number] ADMISSION DATE: 09/20/2020 DISCHARGE DATE: ATTENDING MD: CONSUELO LANE : AGE: 65 MARITAL STATUS: W DC PLAN ID: [id number] FACILITY: [facility] PRINTED ON: 09/27/20 14:42 CT All edits/amendments must be made on the electronic document DICTATION DATE: 09/27/201441 DIRECTOR OF MANUFACTURING: ANDREW 09/27/201441 RPT#: [id number] DC DATE: STATUS: ADM IN [facility] [address] [place] [address] END OF REPORT
--- NOTE | 2020-09-27 14:58 | MORECARE ---
CASE MANAGEMENT DISCHARGE SUMMARY PATIENT: SHAGGY AGUAYO UNIT: [id number] ADM DATE: 09/20/20 AGE: 65 : 59 SEX: F ROOM/BED: D.2206 AUTHOR: CONNER,DOC PHYSICIAN: REFERRING PHYSICIAN: CONSUELO FONSECA MD DATE OF SERVICE: 09/27/20 Case Management Discharge Planning Summary COMMENTS ENTERED DATE: 09/27/20 14:41 CT COMMENT TYPE: Discharge Planning REVIEWER: Rona Amor CM met with patient and grandson where she is partially independent with her care. She stated that she has everything that she needs at home. Last time she was here she said that she kept throwing up and that is why she came back. 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 She has a ramp at her home and she is current with [facility]. She has a BSC, shower chair, wheelchair, scooter, walker, home o2, concentrator and nebulizer from [facility]. She denies any new needs at home. She said that her grandson helps her with anything she needs and likves with her. IMM served and signed along with the [facility] for HH. I will fax clinicals to [place] for them to resume HH. Patient discharging home today ENTERED DATE: 09/18/20 14:55 CT COMMENT TYPE: Discharge Planning REVIEWER: Rona MARTINEZ SERVED AND EXPLAINED, COPY GIVEN AND PLACED IN CHART DCP REVIEW SUMMARY ANTICIPATED D/C DATE: EXPECTED LOS : CASE STATUS: DCP Initiated INITIAL REVIEW: 09/17/2020 INITIAL REVIEWER: Rona Amor FINAL DISCHARGE DISPOSITION: 06 : Discharged/Trans to Home Under Care of Organized Home Health Service in Anticipation of Skilled Care FINAL REVIEWER: FINAL REVIEW DATE: DCP Focus Questions & Answers DCP Screen QUESTION: ANSWER High Risk Factors: : 3 or more ED visits within the last 60 days DCP Evaluation QUESTION: ANSWER Family / Caregiver's ability to cope with chronic illness: : a. Adequate (ability to meet patient's medical needs, ensures patient attends medical appts.) Patient gives permission to discuss discharge plans with: (name, relationship and number) : GRANDSON Patient's ability to cope with chronic illness : b. Minimal (2 - 3 ED visits in 6 mos., limited financial resources, occasionally misses appts.) Patient's current cognitive status: : *Oriented to person, place, situation, time and present Patient and/or caregiver agree upon recommended discharge plan? : Yes Physical Status: : Compromised nutritional status Physical Status: : Compromised skin integrity Physical Status: : Partial care dependence Family / Caregiver's ability to cope with chronic illness: : a. Adequate (ability to meet patient's medical needs, ensures patient attends medical appts.) Functional screen assessment: : Basic needs can adequately be met by self Does the patient have the ability to pay for or attain post discharge needs / services? : Yes Partial Dependence, assistance required for: : Ambulation / Mobility Partial Dependence, assistance required for: : Bathing Living Arrangements: : Home with Extended Family Is there a likelihood that the patient will require additional services to return to the preadmission environment? : N/A Living arrangements comments: : LIVE AT HOME WITH GRANDSON Baseline cognitive status: : *Oriented to person, place, situation, time and present Patient with capacity for self-care or can be cared for in same environment as prior to hospitalization? : Yes Results of this evaluation have been discussed with: : Family Other Equipment comments: : HAS ALL DME THAT IS NEEDED Facility / Agency name and contact information from Question 3 (if applicable): : CURRENT WITH [facility] Medication Management: : Patient states can afford medications Medication Management: : Evidence of High Risk Meds (check hospital policy) Physical environment referral comments (if applicable): : HAS A RAMP Pharmacy name(s): : [facility] [address] [facility] Planned post hospital services available for patient? : Yes Does Patient have transportation to get home and to follow-up medical appointments when discharged from the hospital? : Yes Planned post hospital services covered by insurance plan? : Yes Would patient like to participate in any Care Coordination programs (if applicable): : Not applicable Does the patient have electricity at home? : Yes Does the patient have running water in their house? : Yes Equipment in use: : Bedside Commode Equipment in use: : Glucometer Equipment in use: : Home Oxygen with Nasal Cannula Equipment in use: : Nebulizer Equipment in use: : Scooter Equipment in use: : Shower Chair Equipment in use: : Walker - Rollator Equipment in use: : Walker - Rolling Equipment in use: : Wheelchair Equipment in use: : Wound Dressing Equipment agency name and contact information: : [facility]) [phone] Mental health screen: : No mental health history Psychosocial status: : Independent adult (65+) Abuse/Neglect: : None Resources / Services in place: : Home health Resources / Services in place: : Wound Care Contact information for resources in use: : [facility] DCP Re-evaluation QUESTION: ANSWER Would patient like to participate in any Care Coordination programs (if applicable): : Not applicable PATIENT: SHAGGY AGUAYO ENCOUNTER: [id number] MEDICAL RECORD#: [id number] ADMISSION DATE: 09/20/2020 DISCHARGE DATE: ATTENDING MD: CONSUELO LANE : AGE: 65 MARITAL STATUS: W DC PLAN ID: [id number] FACILITY: [facility] PRINTED ON: 09/27/20 14:58 CT All edits/amendments must be made on the electronic document DICTATION DATE: 09/27/201457 LABORER CHEESEMAKING: ANDREW 09/27/201457 RPT#: [id number] DC DATE: STATUS: ADM IN [facility] [address] [place] [address] END OF REPORT
--- NOTE | 2020-09-27 15:05 | NUR ---
IV DISCONTINUED AND VERBALIZED UNDERSTANDING OF DISCHARGE INSTRUCTIONS. STABLE AT TIME OF DISCHARGE.
--- NOTE | 2020-09-30 14:47 | MORECARE ---
CASE MANAGEMENT DISCHARGE SUMMARY PATIENT: SHAGGY AGUAYO UNIT: [id number] ADM DATE: 09/20/20 AGE: 65 : 59 SEX: F ROOM/BED: D.2206 AUTHOR: CONNER,DOC PHYSICIAN: REFERRING PHYSICIAN: CONSUELO FONSECA MD DATE OF SERVICE: 09/30/20 Case Management Discharge Planning Summary COMMENTS ENTERED DATE: 09/27/20 14:41 CT COMMENT TYPE: Discharge Planning REVIEWER: Rona Amor CM met with patient and grandson where she is partially independent with her care. She stated that she has everything that she needs at home. Last time she was here she said that she kept throwing up and that is why she came back. 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 She has a ramp at her home and she is current with [facility]. She has a BSC, shower chair, wheelchair, scooter, walker, home o2, concentrator and nebulizer from [facility]. She denies any new needs at home. She said that her grandson helps her with anything she needs and likves with her. IMM served and signed along with the [facility] for HH. I will fax clinicals to [place] for them to resume HH. Patient discharging home today ENTERED DATE: 09/18/20 14:55 CT COMMENT TYPE: Discharge Planning REVIEWER: Rona MARTINEZ SERVED AND EXPLAINED, COPY GIVEN AND PLACED IN CHART DCP REVIEW SUMMARY ANTICIPATED D/C DATE: EXPECTED LOS : CASE STATUS: DCP Initiated INITIAL REVIEW: 09/17/2020 INITIAL REVIEWER: Rona Amor FINAL DISCHARGE DISPOSITION: 06 : Discharged/Trans to Home Under Care of Organized Home Health Service in Anticipation of Skilled Care FINAL REVIEWER: FINAL REVIEW DATE: DCP Focus Questions & Answers DCP Screen QUESTION: ANSWER High Risk Factors: : 3 or more ED visits within the last 60 days DCP Evaluation QUESTION: ANSWER Patient's current cognitive status: : *Oriented to person, place, situation, time and present Patient's ability to cope with chronic illness : b. Minimal (2 - 3 ED visits in 6 mos., limited financial resources, occasionally misses appts.) Patient gives permission to discuss discharge plans with: (name, relationship and number) : GRANDSON Patient and/or caregiver agree upon recommended discharge plan? : Yes Family / Caregiver's ability to cope with chronic illness: : a. Adequate (ability to meet patient's medical needs, ensures patient attends medical appts.) Functional screen assessment: : Basic needs can adequately be met by self Physical Status: : Compromised nutritional status Physical Status: : Compromised skin integrity Physical Status: : Partial care dependence Does the patient have the ability to pay for or attain post discharge needs / services? : Yes Family / Caregiver's ability to cope with chronic illness: : a. Adequate (ability to meet patient's medical needs, ensures patient attends medical appts.) Partial Dependence, assistance required for: : Ambulation / Mobility Partial Dependence, assistance required for: : Bathing Is there a likelihood that the patient will require additional services to return to the preadmission environment? : N/A Living Arrangements: : Home with Extended Family Baseline cognitive status: : *Oriented to person, place, situation, time and present Results of this evaluation have been discussed with: : Family Patient with capacity for self-care or can be cared for in same environment as prior to hospitalization? : Yes Living arrangements comments: : LIVE AT HOME WITH GRANDSON Other Equipment comments: : HAS ALL DME THAT IS NEEDED Facility / Agency name and contact information from Question 3 (if applicable): : CURRENT WITH [facility] Medication Management: : Patient states can afford medications Medication Management: : Evidence of High Risk Meds (check hospital policy) Physical environment referral comments (if applicable): : HAS A RAMP Planned post hospital services available for patient? : Yes Pharmacy name(s): : [facility] [address] [facility] Does Patient have transportation to get home and to follow-up medical appointments when discharged from the hospital? : Yes Planned post hospital services covered by insurance plan? : Yes Would patient like to participate in any Care Coordination programs (if applicable): : Not applicable Does the patient have electricity at home? : Yes Does the patient have running water in their house? : Yes Equipment in use: : Bedside Commode Equipment in use: : Glucometer Equipment in use: : Home Oxygen with Nasal Cannula Equipment in use: : Nebulizer Equipment in use: : Scooter Equipment in use: : Shower Chair Equipment in use: : Walker - Rollator Equipment in use: : Walker - Rolling Equipment in use: : Wheelchair Equipment in use: : Wound Dressing Equipment agency name and contact information: : [facility]) [phone] Mental health screen: : No mental health history Psychosocial status: : Independent adult (65+) Abuse/Neglect: : None Resources / Services in place: : Home health Resources / Services in place: : Wound Care Contact information for resources in use: : [facility] DCP Re-evaluation QUESTION: ANSWER Would patient like to participate in any Care Coordination programs (if applicable): : Not applicable PATIENT: SHAGGY AGUAYO ENCOUNTER: [id number] MEDICAL RECORD#: [id number] ADMISSION DATE: 09/20/2020 DISCHARGE DATE: 09/27/2020 ATTENDING MD: CONSUELO LANE : AGE: 65 MARITAL STATUS: W DC PLAN ID: [id number] FACILITY: [facility] PRINTED ON: 09/30/20 14:47 CT All edits/amendments must be made on the electronic document DICTATION DATE: 09/30/20 144 MANAGER DOCUMENTATION: ANDREW 09/30/20 144 RPT#: [id number] DC DATE:09/27/20 STATUS: DIS IN [facility] [address] [place] [address] END OF REPORT
== END 2020-09-27 15:06 | disposition home health service (06) | DRG 392 ==
LOC: D.ER 16:03 → D.MS 19:15 → OBSVTIME 19:16 → D.MS 09-20 15:00
PROVIDERS: Emergency Medicine; Family Medicine; Surgery; ADMIT Family Medicine; ATTEND Family Medicine
PROC: 0DJ08ZZ Inspection of Upper Intestinal Tract, Via Natural or Artificial Opening Endoscopic (ICD-10-PCS; principal; 2020-09-23 06:40)
DX: K31.84 Gastroparesis (principal); K44.0 Diaphragmatic hernia with obstruction, without gangrene; N39.0 Urinary tract infection, site not specified; N17.9 Acute kidney failure, unspecified; E11.43 Type 2 diabetes mellitus with diabetic autonomic (poly)neuropathy; E11.22 Type 2 diabetes mellitus with diabetic chronic kidney disease; I12.9 Hypertensive chronic kidney disease with stage 1 through stage 4 chronic kidney disease, or unspecified chronic kidney disease; N18.9 Chronic kidney disease, unspecified; E83.42 Hypomagnesemia; G89.4 Chronic pain syndrome; E03.9 Hypothyroidism, unspecified; E78.5 Hyperlipidemia, unspecified; K21.9 Gastro-esophageal reflux disease without esophagitis; F41.8 Other specified anxiety disorders; I25.10 Atherosclerotic heart disease of native coronary artery without angina pectoris; Z95.0 Presence of cardiac pacemaker; E21.3 Hyperparathyroidism, unspecified; G47.33 Obstructive sleep apnea (adult) (pediatric); R13.10 Dysphagia, unspecified; Z86.711 Personal history of pulmonary embolism

== ENCOUNTER 2020-09-29 12:21 | Inpatient (IN) | payer OTHER ==
[~2020-09-29] VITALS: Ht 177.8 cm; Wt 120.2 kg
[2020-09-29 11:01] VITALS: BP 107/46
[~2020-09-29 12:21] MED LIST changes: +MAGNESIUM PO
[2020-09-29 12:30] VITALS: BP 156/91
[2020-09-29 12:44] LABS: BASOPHILS 0.1 % (0-2); EOSINOPHILS 1.9 % (0-7); HEMATOCRIT 36.1 % (36.0-48.0); HEMOGLOBIN 11.3 g/dL (12-16); IMMATURE GRANULOCYTES 0.3 % (0-5); LYMPHOCYTE ABS# 1.19 10x3/uL (1.18-3.74); MCH 28.3 pg (26.0-34.0); MCHC 31.3 g/dL (31.0-37.0); MCV 90.5 fL (80.0-100.0); MEAN PLATELET VOLUME 10.3 fL (7.4-10.4); MONOCYTES 4.6 % (2-11); NEUTROPHIL ABS# 5.35 10x3/uL (1.56-6.13); NEUTROPHILS 76.1 % (40-80); PLATELET COUNT 254 10x3/uL (130-400); RBC 3.99 10x6/uL (4.00-5.40); RDW 13.9 % (11.5-14.5)
[2020-09-29 12:50] LABS: INR 1.26 (0.85-1.17); PROTIME 14.6 SECONDS (11.6-15.0)
--- NOTE | 2020-09-29 12:51 | NUR ---
NURSING ROUND PERFORMED. VEENA.
[2020-09-29 13:04] LABS: ANION GAP 10.9 mmol/L (8-16); CALCIUM 9.5 mg/dL (8.5-10.1); CARBON DIOXIDE 30.9 mmol/L (21.0-32.0); CREATININE - SERUM 1.3 mg/dL (0.6-1.3); POTASSIUM - SERUM 3.8 mmol/L (3.5-5.1)
[2020-09-29 13:07] LABS: ALBUMIN 3.3 g/dL (3.4-5.0); BILIRUBIN - TOTAL 0.4 mg/dL (0.2-1.3); PROTEIN - SERUM 7.7 g/dL (6.4-8.2)
[2020-09-29 13:14] LABS: AMYLASE - SERUM 9 U/L (25-115); LIPASE 29 U/L (73-393)
--- NOTE | 2020-09-29 14:20 | NUR ---
PATIENT ASSISTED TO BSC, URINE SAMPLE OBTAINED, PATIENT CLEANED AND ASSISTED BACK TO BED. RECTAL EXAM THEN PERFORMED ON THE PATIENT. RESULT OF OCCULT STOOL TEST POSITIVE, RESULTS VERIFIED AND SENT TO LAB PER PROTOCOL.
--- NOTE | 2020-09-29 14:30 | NUR ---
PATIENT GIVEN MORPHINE, PAIN TO IV SITE, REDNESS TO DORSUM OF HAND, AND HIVES TO FOREARM. COMPRESS PLACED. SYMPTOMS RESOLVED ON THEIR OWN. NO AIRWAY INVOLVEMENT. NAD. MONITORING. A LAMONT ADAMS NOTIFIED.
[2020-09-29 15:12] LABS: BILIRUBIN NEGATIVE (NEGATIVE); KETONE NEGATIVE (NEGATIVE); NITRITE NEGATIVE (NEGATIVE); UROBILINOGEN NORMAL mg/dL (< 2)
--- NOTE | 2020-09-29 17:45 | NUR ---
ASSESSMENT PER FLOW SHEET. PATIENT STATES SHE IS NOW HAVING CHEST PAIN. RAPID CALLED SEE RAPID SHEET. INITIALLY COMPLAINED OF ABDOMINAL PAIN AND NAUSEA WITH COMPLAINTS OF DIZZINESS.DRESSING TO BLE REMAIN INTACT. PATIENT REFUSES THEM TO BE REMOVED. PATIENT STATES HER DRESSINGS WERE CHANGED YESTERDAY PER HOME HEALTH. SHE REFUSES SCD'S. INITIALLY REFUSED BED ALARM, BUT DECLINED TO SIGN WAIVER. AGREES WITH SHY MAT.SHY MAT PLACED ON BED.NON SKID SOCKS ON PATIENT.DECLINES YELLOW GOWN BECAUSE "IT WILL BE TIGHT." YELLOW BAND PER EMI. IS AT BEDSIDE AND INSTRUCTED.CALL LIGHT IN REACH. DOOR OPEN.
[2020-09-29 18:04] VITALS: BP 187/93; BMI 38.1
[2020-09-29 18:08] LABS: HEMATOCRIT 34.1 % (36.0-48.0); HEMOGLOBIN 10.9 g/dL (12-16)
[2020-09-29 18:33] LABS: CKMB 0.5 U/L (0.0-3.6); CREATINE KINASE 32 UL (21-215)
[2020-09-29 18:36] LABS: TROPONIN-I < 0.017 ng/mL (0.000-0.060)
--- NOTE | 2020-09-29 19:45 | NUR ---
RECEIVED BEDSIDE REPORT. PT LAYING IN BED A&O X4. PIV TO RIGHT AC PATENT AND INFUSING, NO REDNESS OR SWELLING. PT C/O N/V. TELEMETRY IN PLACE, 65 PACED. EDUCATED PT ON CL AND NEEDS, VERBALIZED UNDERSTANDING. BED LOW, ALARM ON, CL IN REACH. WCTM.
[2020-09-29 20:00] VITALS: BP 189/82
[2020-09-30] VITALS: BP 181/77
--- NOTE | 2020-09-30 00:51 | NUR ---
CHANGED DRSG TO RIGHT FOOT, APPLIED MIGUEL GAUZE AND 4X4, TOLERATED WELL. BED LOW, ALARM ON, CL IN REACH.
[2020-09-30 01:29] LABS: CKMB 0.3 U/L (0.0-3.6); CREATINE KINASE 30 UL (21-215); TROPONIN-I < 0.017 ng/mL (0.000-0.060)
[2020-09-30 01:29] LABS: HEMATOCRIT 31.4 % (36.0-48.0); HEMOGLOBIN 9.8 g/dL (12-16)
[2020-09-30 04:00] VITALS: BP 155/68
[2020-09-30 05:53] LABS: BASOPHILS 0.2 % (0-2); EOSINOPHILS 3.7 % (0-7); HEMATOCRIT 32.1 % (36.0-48.0); IMMATURE GRANULOCYTES 0.2 % (0-5); LYMPHOCYTE ABS# 1.39 10x3/uL (1.18-3.74); LYMPHOCYTES 26.9 % (15-50); MCH 28.2 pg (26.0-34.0); MCHC 31.2 g/dL (31.0-37.0); MCV 90.7 fL (80.0-100.0); MEAN PLATELET VOLUME 9.8 fL (7.4-10.4); PLATELET COUNT 204 10x3/uL (130-400); RBC 3.54 10x6/uL (4.00-5.40); RDW 13.8 % (11.5-14.5)
[2020-09-30 05:57] LABS: WBC 5.2 10x3/uL (4.8-10.8)
[2020-09-30 06:30] LABS: ALBUMIN 2.8 g/dL (3.4-5.0); ALKALINE PHOSPHATASE 88 U/L (30-120); ALT (SGPT) 26 U/L (10-68); BILIRUBIN - TOTAL 0.53 mg/dL (0.2-1.3); CALC OSMOLALITY 283 mosm/kg (275-300); CALCIUM 8.9 mg/dL (8.5-10.1); CARBON DIOXIDE 29.6 mmol/L (21.0-32.0); CHLORIDE - SERUM 106 mmol/L (98-107); CKMB 0.4 U/L (0.0-3.6); CREATINE KINASE 25 UL (21-215); CREATININE - SERUM 1.1 mg/dL (0.6-1.3); GLUCOSE 109 mg/dL (74-106); MAGNESIUM - SERUM 1.6 mg/dL (1.8-2.4); POTASSIUM - SERUM 3.8 mmol/L (3.5-5.1); PROTEIN - SERUM 6.4 g/dL (6.4-8.2); SODIUM 143 mmol/L (136-145); UREA NITROGEN 7 mg/dL (7-18); eGFR NON AFRICAN AMERICAN 53 mL/min (90-120)
[2020-09-30 06:36] LABS: TROPONIN-I < 0.017 ng/mL (0.000-0.060)
[2020-09-30 08:20] VITALS: BP 159/78
[2020-09-30 12:37] VITALS: Ht 177.8 cm; Wt 120.2 kg
[2020-09-30 13:20] LABS: HEMATOCRIT 32.8 % (36.0-48.0); HEMOGLOBIN 10.4 g/dL (12-16)
[2020-09-30 13:21] VITALS: BP 155/90
[2020-09-30 17:14] VITALS: BP 175/58
[2020-09-30 19:00] LABS: HEMOGLOBIN 10.1 g/dL (12-16)
[2020-09-30 20:00] VITALS: BP 137/80
[2020-10-01 04:00] VITALS: BP 148/83
--- NOTE | 2020-10-01 05:10 | NUR ---
I have reviewed this patient and I concur with the Shift Assessment completed by the Licensed Practical Nurse today this shift.
[2020-10-01 07:29] LABS: ALBUMIN 2.8 g/dL (3.4-5.0); ANION GAP 9.5 mmol/L (8-16); BILIRUBIN - TOTAL 0.41 mg/dL (0.2-1.3); CALCIUM 8.9 mg/dL (8.5-10.1); CARBON DIOXIDE 29.8 mmol/L (21.0-32.0); MAGNESIUM - SERUM 1.7 mg/dL (1.8-2.4); POTASSIUM - SERUM 3.3 mmol/L (3.5-5.1); PROTEIN - SERUM 6.3 g/dL (6.4-8.2)
[2020-10-01 08:18] LABS: BASOPHILS 0.2 % (0-2); EOSINOPHILS 3.2 % (0-7); HEMATOCRIT 30.9 % (36.0-48.0); HEMOGLOBIN 9.7 g/dL (12-16); IMMATURE GRANULOCYTES 0.2 % (0-5); LYMPHOCYTE ABS# 1.58 10x3/uL (1.18-3.74); LYMPHOCYTES 29.6 % (15-50); MCH 28.4 pg (26.0-34.0); MCHC 31.4 g/dL (31.0-37.0); MCV 90.4 fL (80.0-100.0); MEAN PLATELET VOLUME 10.6 fL (7.4-10.4); MONOCYTES 5.1 % (2-11); NEUTROPHIL ABS# 3.29 10x3/uL (1.56-6.13); NEUTROPHILS 61.7 % (40-80); PLATELET COUNT 209 10x3/uL (130-400); RBC 3.42 10x6/uL (4.00-5.40); WBC 5.3 10x3/uL (4.8-10.8)
[2020-10-01 09:37] VITALS: BP 155/72
[2020-10-01 11:57] LABS: HEMATOCRIT 30.3 % (36.0-48.0); HEMOGLOBIN 9.4 g/dL (12-16)
[2020-10-01 12:04] VITALS: BP 135/66
[2020-10-01 18:20] LABS: HEMATOCRIT 30.3 % (36.0-48.0); HEMOGLOBIN 9.5 g/dL (12-16)
[2020-10-01 20:40] VITALS: BP 129/67
[2020-10-02 01:49] VITALS: BP 121/62
--- NOTE | 2020-10-02 06:10 | NUR ---
I have reviewed this patient and I concur with the Shift Assessment completed by the Licensed Practical Nurse today this shift.
[2020-10-02 06:30] VITALS: BP 134/90
[2020-10-02 06:58] LABS: BASOPHILS 0.2 % (0-2); EOSINOPHILS 7.1 % (0-7); HEMATOCRIT 30.1 % (36.0-48.0); HEMOGLOBIN 9.4 g/dL (12-16); LYMPHOCYTE ABS# 1.48 10x3/uL (1.18-3.74); MCH 28.3 pg (26.0-34.0); MCHC 31.2 g/dL (31.0-37.0); MCV 90.7 fL (80.0-100.0); MEAN PLATELET VOLUME 10.8 fL (7.4-10.4); MONOCYTES 5.7 % (2-11); NEUTROPHIL ABS# 2.82 10x3/uL (1.56-6.13); PLATELET COUNT 204 10x3/uL (130-400); RBC 3.32 10x6/uL (4.00-5.40); RDW 14.2 % (11.5-14.5); WBC 4.9 10x3/uL (4.8-10.8)
[2020-10-02 07:03] LABS: ALBUMIN 2.5 g/dL (3.4-5.0); ANION GAP 9.9 mmol/L (8-16); BILIRUBIN - TOTAL 0.3 mg/dL (0.2-1.3); CALCIUM 8.4 mg/dL (8.5-10.1); CARBON DIOXIDE 28.3 mmol/L (21.0-32.0); MAGNESIUM - SERUM 1.7 mg/dL (1.8-2.4); POTASSIUM - SERUM 3.2 mmol/L (3.5-5.1); PROTEIN - SERUM 5.9 g/dL (6.4-8.2)
--- NOTE | 2020-10-02 07:29 | NUR ---
AWAKE AND WITHOUT DISTRESS.COMPLAINS OF HEAD ACHE.
--- NOTE | 2020-10-02 07:30 | NUR ---
REC'D IN BED AWAKE AND ALERT. RESP EVEN AND UNLABORED WITH NO DISTRESS NOTED. CAN EXPRESS NEEDS AND WANTS. DENIES ANY PAIN OR DISCOMFORT AT THIS TIME. ASSESSMENT COMPLETED. C/L IN REACH AT BEDSIDE.
[2020-10-02 09:23] VITALS: BP 165/80
[2020-10-02 13:19] LABS: HEMATOCRIT 31.7 % (36.0-48.0); HEMOGLOBIN 9.7 g/dL (12-16)
[2020-10-02 13:30] VITALS: BP 153/82
--- NOTE | 2020-10-02 14:55 | NUR ---
Nutrition follow-up: Pt reports she is tolerating clear liquids and would like to advance to full liquids soon. Pt loves the cream of chicken soup. Diet: clear liquids Surgeons note reports will advance diet to soft soon to see if pt will tolerate; not done yet Wt: 265# RDN will follow-up on progress toward nutrition goals: 10/04/20
[2020-10-02 17:14] VITALS: BP 156/71
[2020-10-02 19:07] LABS: HEMATOCRIT 31.4 % (36.0-48.0); HEMOGLOBIN 9.8 g/dL (12-16)
[2020-10-02 20:00] VITALS: BP 138/77
--- NOTE | 2020-10-03 01:35 | NUR ---
I have reviewed this patient and I concur with the Shift Assessment completed by the Licensed Practical Nurse today this shift.
[2020-10-03 04:00] VITALS: BP 149/62
[2020-10-03 07:10] LABS: BASOPHILS 0.2 % (0-2); HEMATOCRIT 29.8 % (36.0-48.0); HEMOGLOBIN 9.1 g/dL (12-16); IMMATURE GRANULOCYTES 0.2 % (0-5); LYMPHOCYTE ABS# 1.71 10x3/uL (1.18-3.74); LYMPHOCYTES 32.8 % (15-50); MCH 27.9 pg (26.0-34.0); MCHC 30.5 g/dL (31.0-37.0); MCV 91.4 fL (80.0-100.0); MEAN PLATELET VOLUME 10.8 fL (7.4-10.4); MONOCYTES 6.1 % (2-11); NEUTROPHIL ABS# 2.85 10x3/uL (1.56-6.13); NEUTROPHILS 54.7 % (40-80); PLATELET COUNT 215 10x3/uL (130-400); RBC 3.26 10x6/uL (4.00-5.40); RDW 14.2 % (11.5-14.5); WBC 5.2 10x3/uL (4.8-10.8)
--- NOTE | 2020-10-03 07:11 | NUR ---
PATIENT RESTING,WITHOUT NEEDS. NPO
[2020-10-03 07:39] LABS: ALBUMIN 2.5 g/dL (3.4-5.0); ANION GAP 10.4 mmol/L (8-16); BILIRUBIN - TOTAL 0.25 mg/dL (0.2-1.3); CALCIUM 8.2 mg/dL (8.5-10.1); CARBON DIOXIDE 27.7 mmol/L (21.0-32.0); MAGNESIUM - SERUM 1.8 mg/dL (1.8-2.4); POTASSIUM - SERUM 3.1 mmol/L (3.5-5.1); PROTEIN - SERUM 5.8 g/dL (6.4-8.2)
--- NOTE | 2020-10-03 07:59 | ST ---
PATIENT:SHAGGY AGUAYO MEDICAL RECORD: [id number] SEX: F LOCATION:[facility] [address] ORDER #: ADMISSION DATE: 10/01/20 AGE OF PATIENT: 65 REFERRING PHYSICIAN: INTERPRETING PHYSICIAN: BEBE REDDY MD DATE OF SERVICE: 10/02/2020 NUCLEAR STRESS TEST GATED: Gated is normal with normal wall motion. Normal wall thickening. Calculated EF 52%. SPECT IMAGING: SPECT imaging was performed. 1. Short axis view: Short axis view shows good uptake along the anterior wall, lateral wall, and inferior wall. 2. Horizontal axis: Horizontal axis confirms good uptake along the anterior wall and inferior wall. 3. Vertical axis: Vertical axis shows good uptake along the lateral wall and septum. FINAL IMPRESSION: 1. Normal gated, normal wall motion, normal EF 52%. 2. Normal SPECT imaging. FINAL RECOMMENDATION: This scans is felt a low risk for any ongoing myocardial ischemia or previous myocardial infarction. LV function remains normal. TRANSINT:[id number] Voice Confirmation ID: [id number] DOCUMENT ID: [id number] BEBE REDDY MD at 0759 CC: [id number] DICTATION DATE: 10/02/20 1650 TOOL LAPPER HAND: 10/03/20 0032 ADM IN [facility] [id number] [place] [address]
[2020-10-03 08:27] VITALS: BP 179/79
[2020-10-03 12:43] VITALS: BP 102/71
[2020-10-03 12:50] LABS: HEMATOCRIT 30.8 % (36.0-48.0); HEMOGLOBIN 9.4 g/dL (12-16)
[2020-10-03 17:57] VITALS: BP 183/107
--- NOTE | 2020-10-03 19:15 | NUR ---
CALLED WAS PLACED TO DR. CHINO AND NO ANSWER MEESAGE WAS LEFT WITH NO RESPONSE. A TEXT WAS SENT AND WAS INFORMED THAT PT EGD HAS BEEN RESCHEDULE FOR TOMORROW AND PT IS TO BE NPO AFTER MIDNIGHT. AND THAT ITS WILL BE OKAY FOR PT TO HAVE A FULL LIQUID DIET. PM NURSE WAS MADE AWARE OF NEW ORDERS.
[2020-10-03 19:39] LABS: HEMATOCRIT 32.7 % (36.0-48.0); HEMOGLOBIN 10.3 g/dL (12-16)
[2020-10-03 20:00] VITALS: BP 152/70
[2020-10-04] VITALS (10 sets, daily range): BP systolic 126–169; BP diastolic 58–93
--- NOTE | 2020-10-04 02:27 | NUR ---
I have reviewed this patient and I concur with the Shift Assessment completed by the Licensed Practical Nurse today this shift.
[2020-10-04 06:47] LABS: BASOPHILS 0.2 % (0-2); EOSINOPHILS 5.5 % (0-7); HEMOGLOBIN 9.2 g/dL (12-16); IMMATURE GRANULOCYTES 0.2 % (0-5); LYMPHOCYTES 27.3 % (15-50); MCH 27.9 pg (26.0-34.0); MCHC 30.7 g/dL (31.0-37.0); MCV 90.9 fL (80.0-100.0); MEAN PLATELET VOLUME 10.9 fL (7.4-10.4); NEUTROPHIL ABS# 3.12 10x3/uL (1.56-6.13); NEUTROPHILS 60.8 % (40-80); PLATELET COUNT 227 10x3/uL (130-400); RDW 14.1 % (11.5-14.5); WBC 5.1 10x3/uL (4.8-10.8)
[2020-10-04 07:49] LABS: ALBUMIN 2.5 g/dL (3.4-5.0); ANION GAP 13.2 mmol/L (8-16); BILIRUBIN - TOTAL 0.37 mg/dL (0.2-1.3); CALCIUM 8.2 mg/dL (8.5-10.1); CARBON DIOXIDE 25.8 mmol/L (21.0-32.0); MAGNESIUM - SERUM 1.7 mg/dL (1.8-2.4); PROTEIN - SERUM 5.8 g/dL (6.4-8.2)
--- NOTE | 2020-10-04 12:43 | NUR ---
Nutrition follow-up: Pt currently NPO for EGD today Diet was advanced to full liquids 10/03/20 Labs reviewed Pt continues with Nausea - from narcotic withdrawal per GI Will provide food choices and honor food preferences when diet advanced post-procedure RDN follow-up: 10/08/20
[2020-10-04 12:49] LABS: HEMATOCRIT 30.4 % (36.0-48.0); HEMOGLOBIN 9.5 g/dL (12-16)
[2020-10-04 18:51] LABS: HEMATOCRIT 30.6 % (36.0-48.0); HEMOGLOBIN 9.5 g/dL (12-16)
--- NOTE | 2020-10-04 23:00 | NUR ---
N/V. SMALL AMOUNTS. PT REPORTS ITS HER DINNER, REQUESTS TO BE PUT BACK ON FULL LIQUIDS. DRESSINGAS TO BLE REMOVED, REDRESSED. CTM.
--- NOTE | 2020-10-05 04:17 | NUR ---
I have reviewed this patient and I concur with the Shift Assessment completed by the Licensed Practical Nurse today this shift.
[2020-10-05 05:07] LABS: BASOPHILS 0.2 % (0-2); EOSINOPHILS 1.4 % (0-7); HEMATOCRIT 31.3 % (36.0-48.0); HEMOGLOBIN 9.8 g/dL (12-16); IMMATURE GRANULOCYTES 0.1 % (0-5); LYMPHOCYTE ABS# 0.96 10x3/uL (1.18-3.74); LYMPHOCYTES 10.8 % (15-50); MCH 28.2 pg (26.0-34.0); MCHC 31.3 g/dL (31.0-37.0); MCV 89.9 fL (80.0-100.0); MONOCYTES 3.5 % (2-11); NEUTROPHIL ABS# 7.43 10x3/uL (1.56-6.13); PLATELET COUNT 255 10x3/uL (130-400); RBC 3.48 10x6/uL (4.00-5.40); RDW 14.1 % (11.5-14.5)
[2020-10-05 05:09] LABS: WBC 8.9 10x3/uL (4.8-10.8)
[2020-10-05 05:27] LABS: ALBUMIN 2.7 g/dL (3.4-5.0); ANION GAP 11.2 mmol/L (8-16); BILIRUBIN - TOTAL 0.42 mg/dL (0.2-1.3); CALCIUM 8.4 mg/dL (8.5-10.1); CARBON DIOXIDE 27.5 mmol/L (21.0-32.0); POTASSIUM - SERUM 3.7 mmol/L (3.5-5.1); PROTEIN - SERUM 6.3 g/dL (6.4-8.2)
[2020-10-05 08:07] VITALS: BP 150/70
[2020-10-05 12:00] VITALS: BP 127/63
[2020-10-05 17:29] VITALS: BP 142/65
[2020-10-05 20:00] VITALS: BP 139/64
--- NOTE | 2020-10-05 20:00 | NUR ---
PATIENT RESTING IN BED WITH NO S/S OF DISTRESS AND DENIES NEEDS AT THIS TIME. BED IN LOWEST POSITION AND CALL LIGHT IN REACH. ENCOURAGED PATIENT TO CALL WITH NEEDS.
--- NOTE | 2020-10-05 22:54 | NUR ---
ADMINISTERED MEDS PER ORDERS. PATIENT VALENTINO WELL. ENCOURAGED TO CALL WITH NEEDS.
[2020-10-06] VITALS: BP 144/71
[2020-10-06 04:00] VITALS: BP 149/71
[2020-10-06 07:25] LABS: BASOPHILS 0.2 % (0-2); EOSINOPHILS 5.6 % (0-7); HEMATOCRIT 28.7 % (36.0-48.0); HEMOGLOBIN 8.9 g/dL (12-16); IMMATURE GRANULOCYTES 0.2 % (0-5); LYMPHOCYTE ABS# 1.52 10x3/uL (1.18-3.74); LYMPHOCYTES 30.5 % (15-50); MCH 28.3 pg (26.0-34.0); MCV 91.1 fL (80.0-100.0); MEAN PLATELET VOLUME 10.6 fL (7.4-10.4); MONOCYTES 6.6 % (2-11); NEUTROPHIL ABS# 2.84 10x3/uL (1.56-6.13); NEUTROPHILS 56.9 % (40-80); PLATELET COUNT 222 10x3/uL (130-400); RBC 3.15 10x6/uL (4.00-5.40); RDW 14.3 % (11.5-14.5)
[2020-10-06 07:59] LABS: ALBUMIN 2.4 g/dL (3.4-5.0); ANION GAP 9.5 mmol/L (8-16); BILIRUBIN - TOTAL 0.3 mg/dL (0.2-1.3); CALCIUM 8.3 mg/dL (8.5-10.1); CARBON DIOXIDE 28.9 mmol/L (21.0-32.0); POTASSIUM - SERUM 3.4 mmol/L (3.5-5.1); PROTEIN - SERUM 5.7 g/dL (6.4-8.2)
[2020-10-06 09:31] VITALS: BP 145/67
[2020-10-06 13:31] VITALS: BP 139/70
[2020-10-06 17:23] VITALS: BP 144/68
--- NOTE | 2020-10-06 19:36 | NUR ---
PATIENT RESTING IN BED WITH NO S/S OF DISTRESS. PATIENT DENIES NEEDS AT THIS TIME. BED IN LOWEST POSITION AND CALL LIGHT IN REACH. ENCOURAGED PATIENT TO CALL WITH NEEDS.
[2020-10-06 20:00] VITALS: BP 148/69
--- NOTE | 2020-10-06 20:56 | NUR ---
ADMINISTERED MEDS PER ORDERS. PATIENT VALENTINO WELL. ENCOURAGED TO CALL WITH NEEDS.
[2020-10-07 04:00] VITALS: BP 141/73
[2020-10-07 06:06] LABS: BASOPHILS 0.2 % (0-2); EOSINOPHILS 5.2 % (0-7); HEMATOCRIT 28.7 % (36.0-48.0); HEMOGLOBIN 8.7 g/dL (12-16); IMMATURE GRANULOCYTES 0.2 % (0-5); LYMPHOCYTE ABS# 1.66 10x3/uL (1.18-3.74); LYMPHOCYTES 33.1 % (15-50); MCH 27.8 pg (26.0-34.0); MCHC 30.3 g/dL (31.0-37.0); MCV 91.7 fL (80.0-100.0); MEAN PLATELET VOLUME 10.2 fL (7.4-10.4); NEUTROPHIL ABS# 2.72 10x3/uL (1.56-6.13); NEUTROPHILS 54.3 % (40-80); PLATELET COUNT 217 10x3/uL (130-400); RBC 3.13 10x6/uL (4.00-5.40); RDW 14.4 % (11.5-14.5)
[2020-10-07 06:22] LABS: ALBUMIN 2.4 g/dL (3.4-5.0); ANION GAP 9.6 mmol/L (8-16); BILIRUBIN - TOTAL 0.23 mg/dL (0.2-1.3); CALCIUM 8.3 mg/dL (8.5-10.1); CARBON DIOXIDE 29.1 mmol/L (21.0-32.0); POTASSIUM - SERUM 3.7 mmol/L (3.5-5.1); PROTEIN - SERUM 5.6 g/dL (6.4-8.2)
[2020-10-07 09:11] VITALS: BP 166/72
[2020-10-07 12:58] VITALS: BP 127/67
[2020-10-07 18:22] VITALS: BP 144/80
[2020-10-07 20:21] VITALS: BP 151/74
--- NOTE | 2020-10-08 03:46 | NUR ---
PATIENT REFUSES TO HAVE A IV PUT IN, SHE SAYS SHE IS SUPPOSED TO GO HOME AND DOES NOT WANT ANYONE POKING HER WITH A NEEDLE. I CALLED [facility] TO GET HER PROTONIX AND REGLAN TO BE STARTED PO REQUESTED BY THE PATIENT, IT WILL START IN THE AM.
[2020-10-08 04:30] VITALS: BP 138/66
--- NOTE | 2020-10-08 07:28 | NUR ---
RECIEVED BEDSIDE REPORT. IN BED RESTING. DENIES NEED AT THIS TIME. BED LOW POSITION, CALL LIGHT IN REACH. WILL CONTINUE TO MONITOR.
[2020-10-08 08:38] VITALS: BP 160/78
--- NOTE | 2020-10-08 09:04 | MORECARE ---
CASE MANAGEMENT DISCHARGE SUMMARY PATIENT: SHAGGY AGUAYO UNIT: [id number] ADM DATE: 10/01/20 AGE: 65 : 59 SEX: F ROOM/BED: D.[facility] AUTHOR: CONNER,DOC PHYSICIAN: REFERRING PHYSICIAN: BEBE COWART MD DATE OF SERVICE: 10/08/20 Case Management Discharge Planning Summary DCP REVIEW SUMMARY ANTICIPATED D/C DATE: EXPECTED LOS : CASE STATUS: DCP Initiated INITIAL REVIEW: 09/29/2020 INITIAL REVIEWER: Rona Amor FINAL DISCHARGE DISPOSITION: 06 : Discharged/Trans to Home Under Care of Organized Home Health Service in Anticipation of Skilled Care FINAL REVIEWER: FINAL REVIEW DATE: DCP Focus Questions & Answers DCP Screen QUESTION: ANSWER High Risk Factors: : 3 or more ED visits within the last 60 days DCP Evaluation QUESTION: ANSWER Patient's ability to cope with chronic illness : d. No chronic illness Would patient like to participate in any Care Coordination programs (if applicable): : Not applicable Mental health screen: : No mental health history DCP Re-evaluation QUESTION: ANSWER Would patient like to participate in any Care Coordination programs (if applicable): : Not applicable PATIENT: SHAGGY AGUAYO ENCOUNTER: [id number] MEDICAL RECORD#: [id number] ADMISSION DATE: 10/01/2020 DISCHARGE DATE: ATTENDING MD: : AGE: 65 MARITAL STATUS: W DC PLAN ID: [id number] FACILITY: [facility] PRINTED ON: 10/08/20 9:04 CT All edits/amendments must be made on the electronic document DICTATION DATE: 10/08/20903 SENIOR SALES COMPENSATION ANALYST: DM 10/08/20903 RPT#: [id number] DC DATE: STATUS: ADM IN [facility] [address] [place] [address] END OF REPORT
--- NOTE | 2020-10-08 09:11 | NUR ---
PATIENT REFUSED MORNING LAB DRAW. SHE REFUSED BECAUSE SHE THINKS SHE WILL BE LEAVING TODAY.
--- NOTE | 2020-10-08 09:14 | MORECARE ---
CASE MANAGEMENT DISCHARGE SUMMARY PATIENT: SHAGGY AUGAYO UNIT: [id number] ADM DATE: 10/01/20 AGE: 65 : 59 SEX: F ROOM/BED: D.2214 AUTHOR: ARTEM PRIETO PHYSICIAN: REFERRING PHYSICIAN: BEBE COWART MD DATE OF SERVICE: 10/08/20 Case Management Discharge Planning Summary DCP REVIEW SUMMARY ANTICIPATED D/C DATE: EXPECTED LOS : CASE STATUS: DCP Initiated INITIAL REVIEW: 09/29/2020 INITIAL REVIEWER: Rona Amor FINAL DISCHARGE DISPOSITION: 06 : Discharged/Trans to Home Under Care of Organized Home Health Service in Anticipation of Skilled Care FINAL REVIEWER: FINAL REVIEW DATE: DCP Focus Questions & Answers DCP Screen QUESTION: ANSWER High Risk Factors: : 3 or more ED visits within the last 60 days DCP Evaluation QUESTION: ANSWER Family / Caregiver's ability to cope with chronic illness: : b. Minimal (occasionally not dependable to meet pt's. needs, can meet pt's. basic ADL's) Patient gives permission to discuss discharge plans with: (name, relationship and number) : GRANDSON Patient's ability to cope with chronic illness : b. Minimal (2 - 3 ED visits in 6 mos., limited financial resources, occasionally misses appts.) Patient's current cognitive status: : *Oriented to person, place, situation, time and present Patient and/or caregiver agree upon recommended discharge plan? : Yes Physical Status: : Mobility impaired Physical Status: : Partial care dependence Family / Caregiver's ability to cope with chronic illness: : b. Minimal (occasionally not dependable to meet pt's. needs, can meet pt's. basic ADL's) Functional screen assessment: : Unable to manage ADLs without immediate ongoing assistance Functional screen assessment: : Basic needs can adequately be met by self Does the patient have the ability to pay for or attain post discharge needs / services? : Yes Alternate discharge plan (if recommended plan not agreed upon by patient and/or caregiver): : WOULD LIKE HER TO GO TO SKILLED BUT SHE REFUSES Partial Dependence, assistance required for: : Ambulation / Mobility Living Arrangements: : Home with Extended Family Is there a likelihood that the patient will require additional services to return to the preadmission environment? : Yes Functional screen comments: : READMIT OFTEN Living arrangements comments: : LIVES WITH HER GRANDSON Baseline cognitive status: : *Oriented to person, place, situation, time and present Patient with capacity for self-care or can be cared for in same environment as prior to hospitalization? : No Results of this evaluation have been discussed with: : Patient Comments: : Malvin;CHIKI [phone] Medication Management: : Patient states can read and understand medication labels Physical environment referral comments (if applicable): : HAS A RAMP Pharmacy name(s): : [facility] [address] Planned post hospital services available for patient? : Yes Does Patient have transportation to get home and to follow-up medical appointments when discharged from the hospital? : Yes Planned post hospital services covered by insurance plan? : Yes Would patient like to participate in any Care Coordination programs (if applicable): : Not applicable Does the patient have electricity at home? : Yes Other Care Coordination programs/comments: : CURRENT WITH [facility] Does the patient have running water in their house? : Yes Equipment in use: : Bedside Commode Equipment in use: : Glucometer Equipment in use: : Home Oxygen with Nasal Cannula Equipment in use: : Nebulizer Equipment in use: : Scooter Equipment in use: : Shower Chair Equipment in use: : Walker - Rollator Equipment in use: : Walker - Rolling Equipment in use: : Wheelchair Equipment in use: : Wound Dressing Mental health screen: : No mental health history Psychosocial status: : Independent adult (18-64) DCP Re-evaluation QUESTION: ANSWER Would patient like to participate in any Care Coordination programs (if applicable): : Not applicable PATIENT: SHAGGY AGUAYO ENCOUNTER: [id number] MEDICAL RECORD#: [id number] ADMISSION DATE: 10/01/2020 DISCHARGE DATE: ATTENDING MD: CHERYL: AGE: 65 MARITAL STATUS: W DC PLAN ID: [id number] FACILITY: [facility] PRINTED ON: 10/08/20 9:14 CT All edits/amendments must be made on the electronic document DICTATION DATE: 10/08/20913 PHARMACY TECH: ANDREW 10/08/20913 RPT#: [id number] DC DATE: STATUS: ADM IN [facility] [address] [place] [address] END OF REPORT
--- NOTE | 2020-10-08 09:36 | MORECARE ---
CASE MANAGEMENT DISCHARGE SUMMARY PATIENT: SHAGGY AGUAYO UNIT: [id number] ADM DATE: 10/01/20 AGE: 65 : 57 SEX: F ROOM/BED: D.2214 AUTHOR: CONNER,DOC PHYSICIAN: REFERRING PHYSICIAN: BEBE COWART MD DATE OF SERVICE: 10/08/20 Case Management Discharge Planning Summary COMMENTS ENTERED DATE: 10/08/20 9:12 CT COMMENT TYPE: Discharge Planning REVIEWER: Rona Amor late entry 10/07/20 @ 1330 CM met with patient to complete initial dc planning assessment. CM educated patient on the CM role and verbal consent given by patient to complete assessment. Patient lives at home with her grandson who helps her with whatever she needs. At discharge patient plans to return home and feels this is a safe discharge. We discussed her readmits and what she thinks the reason for it. She said last time she didn't get her Lyrica or her Linzess prescribed. She stated that she needs surgery but she is not well enough to have it. She is refusing to go to a intermediate facility or rehab. She stated that she is current with [facility]. and has all the DME that she needs. She uses [facility] for her home o2 and nebulizer. She is current with [facility]. CM will continue to follow and will assist as needed with dc plans/needs. Josue signed and imm also signed and placed in chart DCP REVIEW SUMMARY ANTICIPATED D/C DATE: EXPECTED LOS : CASE STATUS: DCP Initiated INITIAL REVIEW: 09/29/2020 INITIAL REVIEWER: Rona Amor FINAL DISCHARGE DISPOSITION: 06 : Discharged/Trans to Home Under Care of Organized Home Health Service in Anticipation of Skilled Care FINAL REVIEWER: FINAL REVIEW DATE: DCP Focus Questions & Answers DCP Screen QUESTION: ANSWER High Risk Factors: : 3 or more ED visits within the last 60 days DCP Evaluation QUESTION: ANSWER Family / Caregiver's ability to cope with chronic illness: : b. Minimal (occasionally not dependable to meet pt's. needs, can meet pt's. basic ADL's) Patient gives permission to discuss discharge plans with: (name, relationship and number) : GRANDSON Patient's ability to cope with chronic illness : b. Minimal (2 - 3 ED visits in 6 mos., limited financial resources, occasionally misses appts.) Patient's current cognitive status: : *Oriented to person, place, situation, time and present Patient and/or caregiver agree upon recommended discharge plan? : Yes Physical Status: : Mobility impaired Physical Status: : Partial care dependence Family / Caregiver's ability to cope with chronic illness: : b. Minimal (occasionally not dependable to meet pt's. needs, can meet pt's. basic ADL's) Functional screen assessment: : Unable to manage ADLs without immediate ongoing assistance Functional screen assessment: : Basic needs can adequately be met by self Does the patient have the ability to pay for or attain post discharge needs / services? : Yes Alternate discharge plan (if recommended plan not agreed upon by patient and/or caregiver): : WOULD LIKE HER TO GO TO SKILLED BUT SHE REFUSES Partial Dependence, assistance required for: : Ambulation / Mobility Living Arrangements: : Home with Extended Family Is there a likelihood that the patient will require additional services to return to the preadmission environment? : Yes Functional screen comments: : READMIT OFTEN Living arrangements comments: : LIVES WITH HER GRANDSON Baseline cognitive status: : *Oriented to person, place, situation, time and present Patient with capacity for self-care or can be cared for in same environment as prior to hospitalization? : No Results of this evaluation have been discussed with: : Patient Comments: : Malvin;CHIKI [phone] Medication Management: : Patient states can read and understand medication labels Physical environment referral comments (if applicable): : HAS A RAMP Pharmacy name(s): : [facility] [address] Planned post hospital services available for patient? : Yes Does Patient have transportation to get home and to follow-up medical appointments when discharged from the hospital? : Yes Planned post hospital services covered by insurance plan? : Yes Would patient like to participate in any Care Coordination programs (if applicable): : Not applicable Does the patient have electricity at home? : Yes Other Care Coordination programs/comments: : CURRENT WITH [facility] Does the patient have running water in their house? : Yes Equipment in use: : Bedside Commode Equipment in use: : Glucometer Equipment in use: : Home Oxygen with Nasal Cannula Equipment in use: : Nebulizer Equipment in use: : Scooter Equipment in use: : Shower Chair Equipment in use: : Walker - Rollator Equipment in use: : Walker - Rolling Equipment in use: : Wheelchair Equipment in use: : Wound Dressing Mental health screen: : No mental health history Psychosocial status: : Independent adult (18-64) DCP Re-evaluation QUESTION: ANSWER Would patient like to participate in any Care Coordination programs (if applicable): : Not applicable PATIENT: SHAGGY AGUAYO ENCOUNTER: [id number] MEDICAL RECORD#: [id number] ADMISSION DATE: 10/01/2020 DISCHARGE DATE: ATTENDING MD: CHERYL: AGE: 65 MARITAL STATUS: W DC PLAN ID: [id number] FACILITY: [facility] PRINTED ON: 10/08/20 9:36 CT All edits/amendments must be made on the electronic document DICTATION DATE: 10/08/20935 CROWN BUFFER: ANDREW 10/08/20935 RPT#: [id number] DC DATE: STATUS: ADM IN [facility] [address] [place] [address] END OF REPORT
[2020-10-08] MEDS ORDERED: PROCHLORPERAZ5 MG/M1 IM (11:57)
[2020-10-08] MEDS ORDERED: LYRICA150 MG PO (11:57)
[2020-10-08] MEDS ORDERED: LINZESS145 MCG PO (11:57)
[2020-10-08 12:30] VITALS: BP 145/76
--- NOTE | 2020-10-08 13:50 | NUR ---
DISCHARGE PAPERS COMPLETE. NO IV PRESENT. BELONGINGS GATHERED. GRANDSON HERE WITH HOME WHEELCHAIR TO LEAVE UNIT. GETTING DRESSED NOW.
--- NOTE | 2020-10-08 14:17 | NUR ---
LEFT UNIT VIA WHEELCHAIR TO HOME AT THIS TIME.
--- NOTE | 2020-10-08 14:18 | MORECARE ---
CASE MANAGEMENT DISCHARGE SUMMARY PATIENT: SHAGGY AGUAYO UNIT: [id number] ADM DATE: 10/01/20 AGE: 65 : 59 SEX: F ROOM/BED: D.2214 AUTHOR: CONNER,DOC PHYSICIAN: REFERRING PHYSICIAN: BEBE COWART MD DATE OF SERVICE: 10/08/20 Case Management Discharge Planning Summary COMMENTS ENTERED DATE: 10/08/20 14:11 CT COMMENT TYPE: Discharge Planning REVIEWER: Rona Amor PATIENT DC HOME TODAY WITH [facility] I SPOKE WITH CARLOTTA AT [facility] TO LET HER KNOW THAT THAT SHE WAS DISCHARGING HOME ENTERED DATE: 10/08/20 9:12 CT COMMENT TYPE: Discharge Planning REVIEWER: Rona Amor late entry 10/07/20 @ 1330 CM met with patient to complete initial dc planning assessment. CM educated patient on the CM role and verbal consent given by patient to complete assessment. Patient lives at home with her grandson who helps her with whatever she needs. At discharge patient plans to return home and feels this is a safe discharge. We discussed her readmits and what she thinks the reason for it. She said last time she didn't get her Lyrica or her Linzess prescribed. She stated that she needs surgery but she is not well enough to have it. She is refusing to go to a group home facility or rehab. She stated that she is current with [facility]. and has all the DME that she needs. She uses [facility] for her home o2 and nebulizer. She is current with [facility]. CM will continue to follow and will assist as needed with dc plans/needs. Josue signed and imm also signed and placed in chart DCP REVIEW SUMMARY ANTICIPATED D/C DATE: EXPECTED LOS : CASE STATUS: DCP Initiated INITIAL REVIEW: 09/29/2020 INITIAL REVIEWER: Rona Amor FINAL DISCHARGE DISPOSITION: 06 : Discharged/Trans to Home Under Care of Organized Home Health Service in Anticipation of Skilled Care FINAL REVIEWER: FINAL REVIEW DATE: DCP Focus Questions & Answers DCP Screen QUESTION: ANSWER High Risk Factors: : 3 or more ED visits within the last 60 days DCP Evaluation QUESTION: ANSWER Family / Caregiver's ability to cope with chronic illness: : b. Minimal (occasionally not dependable to meet pt's. needs, can meet pt's. basic ADL's) Patient gives permission to discuss discharge plans with: (name, relationship and number) : GRANDSON Patient's ability to cope with chronic illness : b. Minimal (2 - 3 ED visits in 6 mos., limited financial resources, occasionally misses appts.) Patient's current cognitive status: : *Oriented to person, place, situation, time and present Patient and/or caregiver agree upon recommended discharge plan? : Yes Physical Status: : Mobility impaired Physical Status: : Partial care dependence Family / Caregiver's ability to cope with chronic illness: : b. Minimal (occasionally not dependable to meet pt's. needs, can meet pt's. basic ADL's) Functional screen assessment: : Unable to manage ADLs without immediate ongoing assistance Functional screen assessment: : Basic needs can adequately be met by self Does the patient have the ability to pay for or attain post discharge needs / services? : Yes Alternate discharge plan (if recommended plan not agreed upon by patient and/or caregiver): : WOULD LIKE HER TO GO TO SKILLED BUT SHE REFUSES Partial Dependence, assistance required for: : Ambulation / Mobility Living Arrangements: : Home with Extended Family Is there a likelihood that the patient will require additional services to return to the preadmission environment? : Yes Functional screen comments: : READMIT OFTEN Living arrangements comments: : LIVES WITH HER GRANDSON Baseline cognitive status: : *Oriented to person, place, situation, time and present Patient with capacity for self-care or can be cared for in same environment as prior to hospitalization? : No Results of this evaluation have been discussed with: : Patient Comments: : Malvin;CHIKI [phone] Medication Management: : Patient states can read and understand medication labels Physical environment referral comments (if applicable): : HAS A RAMP Pharmacy name(s): : [facility] [address] Planned post hospital services available for patient? : Yes Does Patient have transportation to get home and to follow-up medical appointments when discharged from the hospital? : Yes Planned post hospital services covered by insurance plan? : Yes Would patient like to participate in any Care Coordination programs (if applicable): : Not applicable Does the patient have electricity at home? : Yes Other Care Coordination programs/comments: : CURRENT WITH [facility] Does the patient have running water in their house? : Yes Equipment in use: : Bedside Commode Equipment in use: : Glucometer Equipment in use: : Home Oxygen with Nasal Cannula Equipment in use: : Nebulizer Equipment in use: : Scooter Equipment in use: : Shower Chair Equipment in use: : Walker - Rollator Equipment in use: : Walker - Rolling Equipment in use: : Wheelchair Equipment in use: : Wound Dressing Mental health screen: : No mental health history Psychosocial status: : Independent adult (18-64) DCP Re-evaluation QUESTION: ANSWER Would patient like to participate in any Care Coordination programs (if applicable): : Not applicable PATIENT: SHAGGY AGUAYO ENCOUNTER: [id number] MEDICAL RECORD#: [id number] ADMISSION DATE: 10/01/2020 DISCHARGE DATE: 10/08/2020 ATTENDING MD: CHERYL: 1955- AGE: 65 MARITAL STATUS: W DC PLAN ID: [id number] FACILITY: [facility] PRINTED ON: 10/08/20 14:18 CT All edits/amendments must be made on the electronic document DICTATION DATE: 10/08/201417 COLOR CARD MAKER: ANDREW 10/08/201417 RPT#: [id number] DC DATE:10/08/20 STATUS: DIS IN [facility] [address] [place] [address] END OF REPORT
--- NOTE | 2020-10-09 10:22 | MORECARE ---
CASE MANAGEMENT DISCHARGE SUMMARY PATIENT: SHAGGY AGUAYO UNIT: [id number] ADM DATE: 10/01/20 AGE: 65 : 59 SEX: F ROOM/BED: D.2214 AUTHOR: CONNER,DOC PHYSICIAN: REFERRING PHYSICIAN: EBBE COWART MD DATE OF SERVICE: 10/09/20 Case Management Discharge Planning Summary COMMENTS ENTERED DATE: 10/08/20 14:11 CT COMMENT TYPE: Discharge Planning REVIEWER: Rona Amor PATIENT DC HOME TODAY WITH [facility] I SPOKE WITH CARLOTTA AT [facility] TO LET HER KNOW THAT THAT SHE WAS DISCHARGING HOME ENTERED DATE: 10/08/20 9:12 CT COMMENT TYPE: Discharge Planning REVIEWER: Rona Amor late entry 10/07/20 @ 1330 CM met with patient to complete initial dc planning assessment. CM educated patient on the CM role and verbal consent given by patient to complete assessment. Patient lives at home with her grandson who helps her with whatever she needs. At discharge patient plans to return home and feels this is a safe discharge. We discussed her readmits and what she thinks the reason for it. She said last time she didn't get her Lyrica or her Linzess prescribed. She stated that she needs surgery but she is not well enough to have it. She is refusing to go to a care home facility or rehab. She stated that she is current with [facility]. and has all the DME that she needs. She uses [facility] for her home o2 and nebulizer. She is current with [facility]. CM will continue to follow and will assist as needed with dc plans/needs. Josue signed and imm also signed and placed in chart DCP REVIEW SUMMARY ANTICIPATED D/C DATE: EXPECTED LOS : 0 CASE STATUS: DCP Complete INITIAL REVIEW: 09/29/2020 INITIAL REVIEWER: Rona Amor FINAL DISCHARGE DISPOSITION: 06 : Discharged/Trans to Home Under Care of Organized Home Health Service in Anticipation of Skilled Care FINAL REVIEWER: Rona Amor FINAL REVIEW DATE: 10/09/2020 DCP Focus Questions & Answers DCP Screen QUESTION: ANSWER High Risk Factors: : 3 or more ED visits within the last 60 days DCP Evaluation QUESTION: ANSWER Patient and/or caregiver agree upon recommended discharge plan? : Yes Patient's current cognitive status: : *Oriented to person, place, situation, time and present Patient's ability to cope with chronic illness : b. Minimal (2 - 3 ED visits in 6 mos., limited financial resources, occasionally misses appts.) Patient gives permission to discuss discharge plans with: (name, relationship and number) : GRANDSON Family / Caregiver's ability to cope with chronic illness: : b. Minimal (occasionally not dependable to meet pt's. needs, can meet pt's. basic ADL's) Alternate discharge plan (if recommended plan not agreed upon by patient and/or caregiver): : WOULD LIKE HER TO GO TO SKILLED BUT SHE REFUSES Does the patient have the ability to pay for or attain post discharge needs / services? : Yes Functional screen assessment: : Unable to manage ADLs without immediate ongoing assistance Functional screen assessment: : Basic needs can adequately be met by self Family / Caregiver's ability to cope with chronic illness: : b. Minimal (occasionally not dependable to meet pt's. needs, can meet pt's. basic ADL's) Physical Status: : Mobility impaired Physical Status: : Partial care dependence Functional screen comments: : READMIT OFTEN Is there a likelihood that the patient will require additional services to return to the preadmission environment? : Yes Living Arrangements: : Home with Extended Family Partial Dependence, assistance required for: : Ambulation / Mobility Results of this evaluation have been discussed with: : Patient Patient with capacity for self-care or can be cared for in same environment as prior to hospitalization? : No Baseline cognitive status: : *Oriented to person, place, situation, time and present Living arrangements comments: : LIVES WITH HER GRANDSON Comments: : Malvin;CHIKI [phone] Physical environment referral comments (if applicable): : HAS A RAMP Medication Management: : Patient states can read and understand medication labels Planned post hospital services available for patient? : Yes Pharmacy name(s): : [facility] [address] Planned post hospital services covered by insurance plan? : Yes Does Patient have transportation to get home and to follow-up medical appointments when discharged from the hospital? : Yes Would patient like to participate in any Care Coordination programs (if applicable): : Not applicable Other Care Coordination programs/comments: : CURRENT WITH [facility] Does the patient have electricity at home? : Yes Does the patient have running water in their house? : Yes Equipment in use: : Bedside Commode Equipment in use: : Glucometer Equipment in use: : Home Oxygen with Nasal Cannula Equipment in use: : Nebulizer Equipment in use: : Scooter Equipment in use: : Shower Chair Equipment in use: : Walker - Rollator Equipment in use: : Walker - Rolling Equipment in use: : Wheelchair Equipment in use: : Wound Dressing Mental health screen: : No mental health history Psychosocial status: : Independent adult (18-64) DCP Re-evaluation QUESTION: ANSWER Would patient like to participate in any Care Coordination programs (if applicable): : Not applicable PATIENT: SHAGGY AGUAYO ENCOUNTER: [id number] MEDICAL RECORD#: [id number] ADMISSION DATE: 10/01/2020 DISCHARGE DATE: 10/08/2020 ATTENDING MD: CHERYL: AGE: 65 MARITAL STATUS: W DC PLAN ID: [id number] FACILITY: [facility] PRINTED ON: 10/09/20 8:30 CT All edits/amendments must be made on the electronic document DICTATION DATE: 10/09/20829 MICROFICHE DUPLICATOR: ANDREW 10/09/20829 RPT#: [id number] DC DATE:10/08/20 STATUS: DIS IN [facility] [address] [place] [address] END OF REPORT
--- NOTE | 2020-10-09 12:41 | MORECARE ---
CASE MANAGEMENT DISCHARGE SUMMARY PATIENT: SHAGGY AGUAYO UNIT: [id number] ADM DATE: 10/01/20 AGE: 65 : 59 SEX: F ROOM/BED: D.2214 AUTHOR: CONNER,DOC PHYSICIAN: REFERRING PHYSICIAN: BEBE COWART MD DATE OF SERVICE: 10/09/20 Case Management Discharge Planning Summary COMMENTS ENTERED DATE: 10/08/20 14:11 CT COMMENT TYPE: Discharge Planning REVIEWER: Rona Amor PATIENT DC HOME TODAY WITH [facility] I SPOKE WITH CARLOTTA AT [place] TO LET HER KNOW THAT THAT SHE WAS DISCHARGING HOME ENTERED DATE: 10/08/20 9:12 CT COMMENT TYPE: Discharge Planning REVIEWER: Rona Amor late entry 10/07/20 @ 1330 CM met with patient to complete initial dc planning assessment. CM educated patient on the CM role and verbal consent given by patient to complete assessment. Patient lives at home with her grandson who helps her with whatever she needs. At discharge patient plans to return home and feels this is a safe discharge. We discussed her readmits and what she thinks the reason for it. She said last time she didn't get her Lyrica or her Linzess prescribed. She stated that she needs surgery but she is not well enough to have it. She is refusing to go to a [facility] facility or rehab. She stated that she is current with [facility]. and has all the DME that she needs. She uses [facility] for her home o2 and nebulizer. She is current with [facility]. CM will continue to follow and will assist as needed with dc plans/needs. Josue signed and imm also signed and placed in chart DCP REVIEW SUMMARY ANTICIPATED D/C DATE: EXPECTED LOS : 0 CASE STATUS: DCP Complete INITIAL REVIEW: 09/29/2020 INITIAL REVIEWER: Rona Amor FINAL DISCHARGE DISPOSITION: 06 : Discharged/Trans to Home Under Care of [facility] in Anticipation of Skilled Care FINAL REVIEWER: Rona Amor FINAL REVIEW DATE: 10/09/2020 DCP Focus Questions & Answers DCP Screen QUESTION: ANSWER High Risk Factors: : 3 or more ED visits within the last 60 days DCP Evaluation QUESTION: ANSWER Patient and/or caregiver agree upon recommended discharge plan? : Yes Patient's current cognitive status: : *Oriented to person, place, situation, time and present Patient's ability to cope with chronic illness : b. Minimal (2 - 3 ED visits in 6 mos., limited financial resources, occasionally misses appts.) Patient gives permission to discuss discharge plans with: (name, relationship and number) : GRANDSON Family / Caregiver's ability to cope with chronic illness: : b. Minimal (occasionally not dependable to meet pt's. needs, can meet pt's. basic ADL's) Alternate discharge plan (if recommended plan not agreed upon by patient and/or caregiver): : WOULD LIKE HER TO GO TO SKILLED BUT SHE REFUSES Does the patient have the ability to pay for or attain post discharge needs / services? : Yes Functional screen assessment: : Unable to manage ADLs without immediate ongoing assistance Functional screen assessment: : Basic needs can adequately be met by self Family / Caregiver's ability to cope with chronic illness: : b. Minimal (occasionally not dependable to meet pt's. needs, can meet pt's. basic ADL's) Physical Status: : Mobility impaired Physical Status: : Partial care dependence Functional screen comments: : READMIT OFTEN Is there a likelihood that the patient will require additional services to return to the preadmission environment? : Yes Living Arrangements: : Home with Extended Family Partial Dependence, assistance required for: : Ambulation / Mobility Results of this evaluation have been discussed with: : Patient Patient with capacity for self-care or can be cared for in same environment as prior to hospitalization? : No Baseline cognitive status: : *Oriented to person, place, situation, time and present Living arrangements comments: : LIVES WITH HER GRANDSON Comments: : Malvin;CHIKI [phone] Physical environment referral comments (if applicable): : HAS A RAMP Medication Management: : Patient states can read and understand medication labels Planned post hospital services available for patient? : Yes Pharmacy name(s): : [facility] [address] Planned post hospital services covered by insurance plan? : Yes Does Patient have transportation to get home and to follow-up medical appointments when discharged from the hospital? : Yes Would patient like to participate in any Care Coordination programs (if applicable): : Not applicable Other Care Coordination programs/comments: : CURRENT WITH [facility] Does the patient have electricity at home? : Yes Does the patient have running water in their house? : Yes Equipment in use: : Bedside Commode Equipment in use: : Glucometer Equipment in use: : Home Oxygen with Nasal Cannula Equipment in use: : Nebulizer Equipment in use: : Scooter Equipment in use: : Shower Chair Equipment in use: : Walker - Rollator Equipment in use: : Walker - Rolling Equipment in use: : Wheelchair Equipment in use: : Wound Dressing Mental health screen: : No mental health history Psychosocial status: : Independent adult (18-64) DCP Re-evaluation QUESTION: ANSWER Would patient like to participate in any Care Coordination programs (if applicable): : Not applicable PATIENT: SHAGGY AGUAYO ENCOUNTER: [id number] MEDICAL RECORD#: [id number] ADMISSION DATE: 10/01/2020 DISCHARGE DATE: 10/08/2020 ATTENDING MD: CHERYL: AGE: 65 MARITAL STATUS: W DC PLAN ID: [id number] FACILITY: [facility] PRINTED ON: 10/09/20 12:41 CT All edits/amendments must be made on the electronic document DICTATION DATE: 10/09/20 124 PRINTED CIRCUIT BOARD PANELS PLATER: ANDREW 10/09/20 124 RPT#: [id number] DC DATE:10/08/20 STATUS: DIS IN [facility] [address] [place] [address] END OF REPORT
== END 2020-10-08 14:17 | disposition home health service (06) | DRG 392 ==
LOC: D.ER 12:21 → OBSVTIME 15:48 → D.MS 15:48
PROVIDERS: Emergency Medicine; Family Medicine; Surgery; ADMIT Family Medicine; ATTEND Family Medicine
PROC: 0D758ZZ Dilation of Esophagus, Via Natural or Artificial Opening Endoscopic (ICD-10-PCS; principal; 2020-10-04 07:30)
DX: K22.8 Other specified diseases of esophagus (principal); K92.0 Hematemesis; J96.11 Chronic respiratory failure with hypoxia; K44.9 Diaphragmatic hernia without obstruction or gangrene; G89.4 Chronic pain syndrome; D64.9 Anemia, unspecified; E11.65 Type 2 diabetes mellitus with hyperglycemia; R55 Syncope and collapse; E11.22 Type 2 diabetes mellitus with diabetic chronic kidney disease; I12.9 Hypertensive chronic kidney disease with stage 1 through stage 4 chronic kidney disease, or unspecified chronic kidney disease; N18.9 Chronic kidney disease, unspecified; E83.42 Hypomagnesemia; I25.10 Atherosclerotic heart disease of native coronary artery without angina pectoris; E78.5 Hyperlipidemia, unspecified; K21.9 Gastro-esophageal reflux disease without esophagitis; F41.8 Other specified anxiety disorders; Z79.01 Long term (current) use of anticoagulants; Z95.0 Presence of cardiac pacemaker; Z86.711 Personal history of pulmonary embolism; G43.909 Migraine, unspecified, not intractable, without status migrainosus

== ENCOUNTER 2020-10-11 11:48 | Inpatient (IN) | payer OTHER ==
[~2020-10-11] VITALS: Ht 177.8 cm; Wt 120.2 kg
[~2020-10-11 11:48] MED LIST changes: +PROCHLORPERAZ5 MG/M1 IM
[2020-10-11 12:32] VITALS: BP 163/85; BMI 38.1
[2020-10-11] MEDS ORDERED: ZOFRAN ODT4 MG/UDTAB PO (12:52)
--- NOTE | 2020-10-11 13:51 | NUR ---
TRIED FOR IV ACCESS. UNABLE TO OBTAIN. PATIENT REQUESTING PICC LINE.
[2020-10-11 14:36] LABS: BASOPHILS 0.2 % (0-2); EOSINOPHILS 2.3 % (0-7); HEMATOCRIT 32.6 % (36.0-48.0); HEMOGLOBIN 10.1 g/dL (12-16); IMMATURE GRANULOCYTES 0.2 % (0-5); LYMPHOCYTES 18.3 % (15-50); MCH 28.1 pg (26.0-34.0); MCV 90.8 fL (80.0-100.0); MEAN PLATELET VOLUME 10.7 fL (7.4-10.4); MONOCYTES 6.7 % (2-11); NEUTROPHIL ABS# 4.35 10x3/uL (1.56-6.13); NEUTROPHILS 72.3 % (40-80); PLATELET COUNT 246 10x3/uL (130-400); RBC 3.59 10x6/uL (4.00-5.40)
[2020-10-11 14:44] LABS: INR 1.52 (0.85-1.17)
[2020-10-11 14:49] LABS: ALBUMIN 2.9 g/dL (3.4-5.0); ANION GAP 8.7 mmol/L (8-16); BILIRUBIN - TOTAL 0.5 mg/dL (0.2-1.3); CARBON DIOXIDE 33.8 mmol/L (21.0-32.0); CREATININE - SERUM 0.9 mg/dL (0.6-1.3); MAGNESIUM - SERUM 1.8 mg/dL (1.8-2.4); PHOSPHOROUS 4.2 mg/dL (2.5-4.9); POTASSIUM - SERUM 3.5 mmol/L (3.5-5.1); PROTEIN - SERUM 6.8 g/dL (6.4-8.2)
--- NOTE | 2020-10-11 15:03 | NUR ---
3 UNSUCCESSFUL ATTEMPTS AT IV.
[2020-10-11 15:26] VITALS: BP 163/85
[2020-10-11 21:13] VITALS: BP 113/68
[2020-10-12] VITALS (8 sets, daily range): BP systolic 122–145; BP diastolic 58–79
[2020-10-12 05:57] LABS: BASOPHILS 0.2 % (0-2); EOSINOPHILS 3.6 % (0-7); HEMATOCRIT 29.1 % (36.0-48.0); HEMOGLOBIN 8.9 g/dL (12-16); IMMATURE GRANULOCYTES 0.2 % (0-5); LYMPHOCYTE ABS# 1.44 10x3/uL (1.18-3.74); MCH 27.9 pg (26.0-34.0); MCHC 30.6 g/dL (31.0-37.0); MCV 91.2 fL (80.0-100.0); MONOCYTES 9.6 % (2-11); NEUTROPHIL ABS# 2.45 10x3/uL (1.56-6.13); NEUTROPHILS 54.4 % (40-80); PLATELET COUNT 223 10x3/uL (130-400); RBC 3.19 10x6/uL (4.00-5.40); RDW 14.3 % (11.5-14.5); WBC 4.5 10x3/uL (4.8-10.8)
[2020-10-12 06:21] LABS: ALBUMIN 2.4 g/dL (3.4-5.0); BILIRUBIN - TOTAL 0.39 mg/dL (0.2-1.3); CALCIUM 8.3 mg/dL (8.5-10.1); CARBON DIOXIDE 34.1 mmol/L (21.0-32.0); CREATININE - SERUM 0.9 mg/dL (0.6-1.3); MAGNESIUM - SERUM 1.7 mg/dL (1.8-2.4); POTASSIUM - SERUM 3.1 mmol/L (3.5-5.1); PROTEIN - SERUM 5.9 g/dL (6.4-8.2)
--- NOTE | 2020-10-12 07:00 | NUR ---
REPORT RECEIVED, PATIENT IS AAOX4, LYING IN SEMI-FOWLERS POSITION. NO S/S OF DISTRESS OBSERVED, RR EVEN AND UNLABORED ON ROOM AIR. RT CHEST CVL PATENT, INFUSING NS @ 100 AND ZOFRAN @ 4.7 DENIES FURTHER NEEDS AT THIS TIME. CL IN REACH, BED LOCKED AND LOWERED. WILL CPOC.
--- NOTE | 2020-10-12 10:30 | NUR ---
PATIENT DOWN TO MT FOR GASTRIC EMPTYING SCAN.
--- NOTE | 2020-10-12 10:41 | NUR ---
I have reviewed this patient and I concur with the Shift Assessment completed by the Licensed Practical Nurse today this shift.
--- NOTE | 2020-10-12 15:20 | NUR ---
OBTAINED URINE SPECIMEN AND TOOK TO LAB.
[2020-10-12 15:58] LABS: BILIRUBIN NEGATIVE (NEGATIVE); KETONE NEGATIVE (NEGATIVE); NITRITE NEGATIVE (NEGATIVE); UROBILINOGEN NORMAL mg/dL (< 2)
[2020-10-12 15:59] LABS: BACTERIA FEW HPF (NONE SEEN); SQUAMOUS EPITHELIAL 0-5 HPF (0-4); WHITE CELLS - URINE 0-5 HPF (0-4)
--- NOTE | 2020-10-12 19:01 | NUR ---
PATIENT HAS BEEN REFUSING NIGHTLY RESPIRATORY TREATMENTS CLAIMING THAT IT MAKES HER JITTERY AND CANNOT SLEEP.
--- NOTE | 2020-10-12 20:00 | NUR ---
INITIAL ROUNDS AND ASSESSMENT COMPLETED. PT ALERT/ORIENTED. O2 @ 2L/NC WITH SHALLOW RESPIRATIONS. RIGHT SC CVL WITH ZOFRAN @ 4.7ML/HR AND NS @ 100ML/HR. BILATERAL LEG DRESSINGS IN PLACE. HAS IMPLANTED FENTANYL PAIN PUMP FOR PAIN CONTROL. NO NEEDS AT THIS TIME. CALL LIGHT IN REACH.
[2020-10-13] VITALS (10 sets, daily range): BP systolic 123–148; BP diastolic 62–78
[2020-10-13 05:58] LABS: BASOPHILS 0.2 % (0-2); EOSINOPHILS 5.2 % (0-7); HEMATOCRIT 30.9 % (36.0-48.0); HEMOGLOBIN 9.4 g/dL (12-16); IMMATURE GRANULOCYTES 0.2 % (0-5); LYMPHOCYTE ABS# 1.61 10x3/uL (1.18-3.74); LYMPHOCYTES 33.6 % (15-50); MCH 27.8 pg (26.0-34.0); MCHC 30.4 g/dL (31.0-37.0); MCV 91.4 fL (80.0-100.0); MEAN PLATELET VOLUME 10.8 fL (7.4-10.4); MONOCYTES 8.8 % (2-11); NEUTROPHIL ABS# 2.49 10x3/uL (1.56-6.13); PLATELET COUNT 226 10x3/uL (130-400); RBC 3.38 10x6/uL (4.00-5.40); RDW 14.2 % (11.5-14.5); WBC 4.8 10x3/uL (4.8-10.8)
[2020-10-13 06:12] LABS: ALBUMIN 2.5 g/dL (3.4-5.0); ANION GAP 8.6 mmol/L (8-16); BILIRUBIN - TOTAL 0.38 mg/dL (0.2-1.3); CALCIUM 8.2 mg/dL (8.5-10.1); MAGNESIUM - SERUM 1.8 mg/dL (1.8-2.4)
[2020-10-13 06:13] LABS: POTASSIUM - SERUM 3.6 mmol/L (3.5-5.1)
--- NOTE | 2020-10-13 07:00 | NUR ---
REPORT RECEIVED. PATIENT IS LYING IN BED, RESTING WITH EYES CLOSED. NO S/S OF DISTRESS OBSERVED, RR EVEN AND UNLABORED ON 2L O2 VIA NC. RT CHEST CVL PATENT, INFUSING NS @ 100ML/HR AND ZOFRAN @ 4.7ML/HR. NO NEEDS EXPRESSED AT THIS TIME. CL IN REACH, BED LOCKED AND LOWERED. WILL CPOC.
--- NOTE | 2020-10-13 11:22 | NUR ---
I have reviewed this patient and I concur with the Shift Assessment completed by the Licensed Practical Nurse today this shift.
--- NOTE | 2020-10-13 20:20 | NUR ---
INITIAL ROUNDS AND ASSESSMENT COMPLETED. NO DISTRESS. RESTING IN BED. CALL LIGHT IN REACH.
[2020-10-14 05:54] LABS: BASOPHILS 0.2 % (0-2); EOSINOPHILS 5.5 % (0-7); HEMATOCRIT 30.7 % (36.0-48.0); HEMOGLOBIN 9.4 g/dL (12-16); IMMATURE GRANULOCYTES 0.4 % (0-5); LYMPHOCYTE ABS# 1.67 10x3/uL (1.18-3.74); LYMPHOCYTES 30.6 % (15-50); MCH 28.1 pg (26.0-34.0); MCHC 30.6 g/dL (31.0-37.0); MCV 91.6 fL (80.0-100.0); MEAN PLATELET VOLUME 11.1 fL (7.4-10.4); MONOCYTES 6.6 % (2-11); NEUTROPHIL ABS# 3.09 10x3/uL (1.56-6.13); NEUTROPHILS 56.7 % (40-80); PLATELET COUNT 239 10x3/uL (130-400); RBC 3.35 10x6/uL (4.00-5.40); RDW 14.2 % (11.5-14.5); WBC 5.5 10x3/uL (4.8-10.8)
--- NOTE | 2020-10-14 05:59 | NUR ---
PT HAS RESTED THROUGH THE NIGHT. ALERT/ORIENTED AT THIS TIME, AWAKE AND WATCHING TV. BLOOD COLLECTED FROM RIGHT SC CVL AND SENT TO LAB. IV ZOFRAN @ 4.7ML/HR INFUSING. NS @ 100ML/HR INFUSING. PT DENIES PAIN, HAS IMPLANTED FENTANYL PUMP FOR PAIN CONTROL. CALL LIGHT IN REACH.
[2020-10-14 06:22] LABS: ALBUMIN 2.4 g/dL (3.4-5.0); ANION GAP 8.4 mmol/L (8-16); BILIRUBIN - TOTAL 0.29 mg/dL (0.2-1.3); CALCIUM 8.2 mg/dL (8.5-10.1); CARBON DIOXIDE 31.3 mmol/L (21.0-32.0); CREATININE - SERUM 1.2 mg/dL (0.6-1.3); MAGNESIUM - SERUM 1.8 mg/dL (1.8-2.4); POTASSIUM - SERUM 3.7 mmol/L (3.5-5.1); PROTEIN - SERUM 5.9 g/dL (6.4-8.2)
--- NOTE | 2020-10-14 07:00 | NUR ---
RECEIVED REPORT. ASSUMED CARE OF PATIENT. CALL LIGHT WITHIN REACH. PATIENT WITH MULTIPLE COMPLAINTS, COMPLAINTS ABOUT ISSUES SINCE ADMISSION THAT HAVE NOT BEEN ADDRESSED. INFORMED PATIENT THIS SUPERVISOR QUILTING WILL DO HER BEST TO RESOLVE ALL ISSUES. WHITE BOARD UPDATED, BEDSIDE SHIFT REPORT COMPLETE. NO DISTRESS.
--- NOTE | 2020-10-14 08:14 | NUR ---
PATIENT UPSET THAT SHE IS NOT YET RECEIVING A FULL LIQUID DIET. NO DIET ORDERS HAVE BEEN CHANGED, PATIENT REMAINS ON ZOFRAN GTT WITH WAVES OF NAUSEA. PATIENT SCREAMING SOMEONE DROPPED THE BALL AND SHE IS LEAVING, SHE IS TIRED OF IT AND HAVING HER GRANDSON COME AND GET HER.
[2020-10-14 08:25] VITALS: BP 160/69
--- NOTE | 2020-10-14 10:25 | NUR ---
PER , VERBAL ORDERS RECIEVED TO INCREASE DIET AT TOLERATED TO FULL LIQUIDS AND DO DAILY DRESSING CHANGES THE WAY THE PATIENT HAS BEEN HAVING DRESSING CHANGES PREFORMED.
--- NOTE | 2020-10-14 10:27 | NUR ---
DIET ORDERS CHANGED IN COMPUTER.
--- NOTE | 2020-10-14 11:39 | NUR ---
FSBS 89. NO INSULIN PER SLIDING SCALE. NYSTATIN POWDER APPLIED ORDERED. NO DISTRESS.
[2020-10-14 12:41] VITALS: Ht 177.8 cm; Wt 120.2 kg
[2020-10-14 12:46] VITALS: BP 155/75
--- NOTE | 2020-10-14 15:10 | NUR ---
WOUND CARE COMPLETE AT THIS TIME TO BILATERAL LOWER EXTREMITIES.
[2020-10-14 17:01] VITALS: BP 154/77
--- NOTE | 2020-10-14 17:09 | NUR ---
FSBS 100. NO INSULIN REQUIRED PER SLIDING SCALE. NO DISTRESS.
[2020-10-14 20:00] VITALS: BP 143/69
--- NOTE | 2020-10-14 20:17 | NUR ---
RECIEVED UP IN BED WITH EYES OPEN AND TV ON. ALERT AND ORIENTED X4. UP TO BEDSIDE COMMODE. DSG TO TRACY LOWER EXTREMITIES CDI. DENIES ANY NEEDS AT THIS TIME.
[2020-10-15] VITALS: BP 146/69
[2020-10-15 04:00] VITALS: BP 138/72
[2020-10-15 05:25] LABS: BASOPHILS 0.2 % (0-2); EOSINOPHILS 6.1 % (0-7); HEMATOCRIT 29.6 % (36.0-48.0); IMMATURE GRANULOCYTES 0.2 % (0-5); LYMPHOCYTE ABS# 1.45 10x3/uL (1.18-3.74); LYMPHOCYTES 32.5 % (15-50); MCH 27.7 pg (26.0-34.0); MCHC 30.4 g/dL (31.0-37.0); MCV 91.1 fL (80.0-100.0); MEAN PLATELET VOLUME 10.9 fL (7.4-10.4); MONOCYTES 10.1 % (2-11); NEUTROPHIL ABS# 2.27 10x3/uL (1.56-6.13); NEUTROPHILS 50.9 % (40-80); PLATELET COUNT 230 10x3/uL (130-400); RBC 3.25 10x6/uL (4.00-5.40); WBC 4.5 10x3/uL (4.8-10.8)
[2020-10-15 05:47] LABS: ALBUMIN 2.2 g/dL (3.4-5.0); ANION GAP 9.7 mmol/L (8-16); BILIRUBIN - TOTAL 0.26 mg/dL (0.2-1.3); CALCIUM 8.2 mg/dL (8.5-10.1); CARBON DIOXIDE 29.8 mmol/L (21.0-32.0); MAGNESIUM - SERUM 1.8 mg/dL (1.8-2.4); POTASSIUM - SERUM 3.5 mmol/L (3.5-5.1); PROTEIN - SERUM 5.6 g/dL (6.4-8.2)
[2020-10-15 07:32] VITALS: BP 166/82
--- NOTE | 2020-10-15 07:51 | NUR ---
PT RECEIVED ASLEEP IN BED, AROUSE TO VOICE. NO NEEDS NOTED AT PRESENT.
[2020-10-15 11:37] VITALS: BP 172/87
[2020-10-15 15:15] VITALS: BP 152/98
--- NOTE | 2020-10-15 16:52 | NUR ---
DRESSING CHANGED TO CENTRAL LINE DUE TO SOILED CHG DISC.
--- NOTE | 2020-10-15 19:20 | NUR ---
ALERT AND ORIENTED X4/ UP AD NICO TO BEDSIDE COMMODE. DSG TO TRACY LOWER EXTREMITIES CDI. WOUNDS HAVE A STRONG ODOR. DENIES ANY NEEDS AT THIS TIME.
[2020-10-15 23:13] VITALS: BP 146/71
[2020-10-16 03:05] VITALS: BP 135/66
[2020-10-16 05:57] VITALS: BP 154/63
[2020-10-16 07:01] LABS: BASOPHILS 0.2 % (0-2); EOSINOPHILS 6.5 % (0-7); HEMATOCRIT 30.5 % (36.0-48.0); HEMOGLOBIN 9.5 g/dL (12-16); IMMATURE GRANULOCYTES 0.4 % (0-5); LYMPHOCYTE ABS# 1.42 10x3/uL (1.18-3.74); LYMPHOCYTES 26.9 % (15-50); MCHC 31.1 g/dL (31.0-37.0); MEAN PLATELET VOLUME 10.9 fL (7.4-10.4); NEUTROPHIL ABS# 3.06 10x3/uL (1.56-6.13); PLATELET COUNT 243 10x3/uL (130-400); RBC 3.39 10x6/uL (4.00-5.40); RDW 13.9 % (11.5-14.5); WBC 5.3 10x3/uL (4.8-10.8)
[2020-10-16 07:22] LABS: ALBUMIN 2.2 g/dL (3.4-5.0); ANION GAP 6.5 mmol/L (8-16); BILIRUBIN - TOTAL 0.29 mg/dL (0.2-1.3); CALCIUM 8.7 mg/dL (8.5-10.1); CARBON DIOXIDE 31.2 mmol/L (21.0-32.0); CREATININE - SERUM 1.1 mg/dL (0.6-1.3); POTASSIUM - SERUM 3.7 mmol/L (3.5-5.1); PROTEIN - SERUM 5.8 g/dL (6.4-8.2)
[2020-10-16 08:06] VITALS: BP 135/85
--- NOTE | 2020-10-16 10:36 | OP ---
PATIENT NAME: SHAGGY AGUAYO MEDICAL RECORD: [id number] :59 LOCATION:D.M2 D.2120 ADMISSION DATE:10/11/20 SURGEON: ROSCOE OMALLEY MD DATE OF OPERATION: 10/11/2020 PREOPERATIVE DIAGNOSES: 1. Need for IV access. 2. Intractable nausea and vomiting. 3. Chronic diabetic gastroparesis. 4. Chronic low back pain with pain pump. 5. Chronic anticoagulation. 6. Atrial fibrillation. 7. Obesity. POSTOPERATIVE DIAGNOSES: 1. Need for IV access. 2. Intractable nausea and vomiting. 3. Chronic diabetic gastroparesis. 4. Chronic low back pain with pain pump. 5. Chronic anticoagulation. 6. Atrial fibrillation. 7. Obesity. PROCEDURE: Right subclavian vein triple-lumen central venous line placement. SURGEON: Roscoe Omalley MD DESCRIPTION OF PROCEDURE: The patient's right chest was prepped and draped in sterile fashion. A 5 mL of 1% lidocaine with epinephrine was infused into the surrounding tissues. A needle was used to cannulate the right subclavian vein and the guidewire was advanced with ease. Over this wire, a dilator was placed followed by the triple lumen catheter. The catheter aspirated nonpulsatile dark blood and flushed easily in all 3 ports. This was sutured into place with 2-0 nylon and dressed appropriately. COMPLICATIONS: None. CONDITION: Stable. ANESTHESIA: Local. BLOOD LOSS: Minimal. Procedure done at the bedside. TRANSINT:[id number] Voice Confirmation ID: [id number] DOCUMENT ID: [id number] OPERATIVE REPORT [id number] SHAGGY AGUAYO CHRISTIAN MD at 1036 CC: [id number] DICTATION DATE: 10/11/20 1604 MANAGER FORMS: 10/12/20 0141 ADM IN [facility] [address] [place] [address]
[2020-10-16 12:07] VITALS: BP 135/63
--- NOTE | 2020-10-16 13:37 | NUR ---
DRSG CHANGED TO LEFT LEG. REFUSED TO HAVE DRG CHANGED TO RIGHT LEG AT THIS TIME.
[2020-10-16 15:52] VITALS: BP 170/74
--- NOTE | 2020-10-16 23:15 | NUR ---
RECIEVED UP IN BED WITH EYES CLOSED. ALERT AND ORIENTED X4. UP AD NICO TO BEDSIDE COMMODE. DSG TO TRACY. LOWER EXTREMITIES.
--- NOTE | 2020-10-16 23:23 | MORECARE ---
CASE MANAGEMENT DISCHARGE SUMMARY PATIENT: SHAGGY AGUAYO UNIT: [id number] ADM DATE: 10/11/20 AGE: 65 : 59 SEX: F ROOM/BED: [facility] AUTHOR: ARTEM PRIETO PHYSICIAN: REFERRING PHYSICIAN: VICENTA CARMEN MD DATE OF SERVICE: 10/16/20 Case Management Discharge Planning Summary DCP REVIEW SUMMARY ANTICIPATED D/C DATE: EXPECTED LOS : CASE STATUS: DCP Initiated INITIAL REVIEW: 10/11/2020 INITIAL REVIEWER: Katie Arias FINAL DISCHARGE DISPOSITION: : FINAL REVIEWER: FINAL REVIEW DATE: DCP Focus Questions & Answers DCP Screen QUESTION: ANSWER High Risk Factors: : 3 or more ED visits within the last 60 days DCP Evaluation QUESTION: ANSWER Patient's ability to cope with chronic illness : d. No chronic illness Would patient like to participate in any Care Coordination programs (if applicable): : Not applicable Mental health screen: : No mental health history DCP Re-evaluation QUESTION: ANSWER Would patient like to participate in any Care Coordination programs (if applicable): : Not applicable PATIENT: SHAGGY AGUAYO ENCOUNTER: [id number] MEDICAL RECORD#: [id number] ADMISSION DATE: 10/11/2020 DISCHARGE DATE: ATTENDING MD: VICENTA CM : AGE: 65 MARITAL STATUS: W DC PLAN ID: [id number] FACILITY: [facility] PRINTED ON: 10/16/20 23:23 CT All edits/amendments must be made on the electronic document DICTATION DATE: 10/16/202322 SHINE WORKER: ANDREW 10/16/202322 RPT#: [id number] DC DATE: STATUS: ADM IN [facility] [address] [place] [address] END OF REPORT
[2020-10-16 23:28] VITALS: BP 135/57
--- NOTE | 2020-10-16 23:33 | MORECARE ---
CASE MANAGEMENT DISCHARGE SUMMARY PATIENT: SHAGGY AGUAYO UNIT: [id number] ADM DATE: 10/11/20 AGE: 65 : 59 SEX: F ROOM/BED: D.3651 AUTHOR: ARTEM PRIETO PHYSICIAN: REFERRING PHYSICIAN: VICENTA CARMEN MD DATE OF SERVICE: 10/16/20 Case Management Discharge Planning Summary DCP REVIEW SUMMARY ANTICIPATED D/C DATE: EXPECTED LOS : CASE STATUS: DCP Initiated INITIAL REVIEW: 10/11/2020 INITIAL REVIEWER: Katie Arias FINAL DISCHARGE DISPOSITION: : FINAL REVIEWER: FINAL REVIEW DATE: DCP Focus Questions & Answers DCP Screen QUESTION: ANSWER High Risk Factors: : 3 or more ED visits within the last 60 days DCP Evaluation QUESTION: ANSWER Patient's current cognitive status: : *Oriented to person, place, situation, time and present Patient gives permission to discuss discharge plans with: (name, relationship and number) : beverley shaikh [phone] Patient's ability to cope with chronic illness : c. Inadequate (3+ ED visits in 6 mos., readmits within 30 days, 2+ hospital admissions in 1 yr.) Does the patient have the ability to pay for or attain post discharge needs / services? : Yes Functional screen assessment: : Unable to manage ADLs without immediate ongoing assistance Family / Caregiver's ability to cope with chronic illness: : c. Inadequate (Enables pt. to make bad choices, cannot meet pt's. needs, difficult family dynamics) Physical Status: : Mobility impaired Physical Status: : Compromised skin integrity Is there a likelihood that the patient will require additional services to return to the preadmission environment? : Yes Living Arrangements: : Home with Extended Family Partial Dependence, assistance required for: : Ambulation / Mobility Results of this evaluation have been discussed with: : Patient Patient with capacity for self-care or can be cared for in same environment as prior to hospitalization? 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 : No Comments: : patient states that she was paying someone to drive her in her car but her drivers one has recently and the other is currently in hospital. Would patient like to participate in any Care Coordination programs (if applicable): : Not applicable Does the patient have electricity at home? : Yes Does the patient have running water in their house? : Yes Equipment in use: : Wound Dressing Equipment in use: : Wheelchair Equipment in use: : Walker - Rollator Equipment in use: : Scooter Equipment in use: : Hospital Bed Equipment in use: : Bedside Commode Mental health screen: : No mental health history Psychosocial status: : Adult with physical limitations Resources / Services in place: : Home health Contact information for resources in use: : [facility] Re-evaluation QUESTION: ANSWER Would patient like to participate in any Care Coordination programs (if applicable): : Not applicable PATIENT: SHAGGY AGUAYO ENCOUNTER: [id number] MEDICAL RECORD#: [id number] ADMISSION DATE: 10/11/2020 DISCHARGE DATE: ATTENDING MD: VICENTA CM : AGE: 65 MARITAL STATUS: W DC PLAN ID: [id number] FACILITY: [facility] PRINTED ON: 10/16/20 23:33 CT All edits/amendments must be made on the electronic document DICTATION DATE: 10/16/202332 EDUCATION REPORTER: ANDREW 10/16/202332 RPT#: [id number] DC DATE: STATUS: ADM IN [facility] [address] [place] [address] END OF REPORT
--- NOTE | 2020-10-16 23:54 | MORECARE ---
CASE MANAGEMENT DISCHARGE SUMMARY PATIENT: SHAGGY AGUAYO UNIT: [id number] ADM DATE: 10/11/20 AGE: 65 : 59 SEX: F ROOM/BED: D.7908 AUTHOR: CONNERDOC PHYSICIAN: REFERRING PHYSICIAN: VICENTA CARMEN MD DATE OF SERVICE: 10/16/20 Case Management Discharge Planning Summary COMMENTS ENTERED DATE: 10/16/20 23:33 CT COMMENT TYPE: Discharge Planning REVIEWER: Katie Arias PCP [facility] [address] or [facility] mail order. CM spoke with patient and she states that she lives at home with her legally blind 25 yr old grandson Campbell. She states that she has had multiple admissions in the recent months. Patient states that she is concerned about transportation home and to f/u appointments. Patient states that she did have people she could call and they would drive her car to her appointments for her. CM contacted [employer] to see if she might qualify for Medicaid. (left Message with Luis) CM called [facility] bus to find out the cost to transport to her home from hospital as [place] pay $20.00 exact change only. CM also called [facility] to see about what community resources may be available to her. CM left message with Lesli Hall Thread Reeler at [facility]. CM also gave telephone numbers of these potential resources to the patient in case she is discharged before they all call back. Patient states that she is current with [facility] and wishes to resume care with them upon discharge. CHERRIE completed. DCP REVIEW SUMMARY ANTICIPATED D/C DATE: EXPECTED LOS : CASE STATUS: DCP Initiated INITIAL REVIEW: 10/11/2020 INITIAL REVIEWER: Katie Arias FINAL DISCHARGE DISPOSITION: : FINAL REVIEWER: FINAL REVIEW DATE: DCP Focus Questions & Answers DCP Screen QUESTION: ANSWER High Risk Factors: : 3 or more ED visits within the last 60 days DCP Evaluation QUESTION: ANSWER Patient's current cognitive status: : *Oriented to person, place, situation, time and present Patient gives permission to discuss discharge plans with: (name, relationship and number) : campbell shaikh- [phone] Patient's ability to cope with chronic illness : c. Inadequate (3+ ED visits in 6 mos., readmits within 30 days, 2+ hospital admissions in 1 yr.) Does the patient have the ability to pay for or attain post discharge needs / services? : Yes Functional screen assessment: : Unable to manage ADLs without immediate ongoing assistance Family / Caregiver's ability to cope with chronic illness: : c. Inadequate (Enables pt. to make bad choices, cannot meet pt's. needs, difficult family dynamics) Physical Status: : Mobility impaired Physical Status: : Compromised skin integrity Is there a likelihood that the patient will require additional services to return to the preadmission environment? : Yes Living Arrangements: : Home with Extended Family Partial Dependence, assistance required for: : Ambulation / Mobility Results of this evaluation have been discussed with: : Patient Patient with capacity for self-care or can be cared for in same environment as prior to hospitalization? 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 : No Comments: : patient states that she was paying someone to drive her in her car but her drivers one has recently and the other is currently in hospital. Would patient like to participate in any Care Coordination programs (if applicable): : Not applicable Does the patient have electricity at home? : Yes Does the patient have running water in their house? : Yes Equipment in use: : Wound Dressing Equipment in use: : Wheelchair Equipment in use: : Walker - Rollator Equipment in use: : Scooter Equipment in use: : Hospital Bed Equipment in use: : Bedside Commode Mental health screen: : No mental health history Psychosocial status: : Adult with physical limitations Resources / Services in place: : Home health Contact information for resources in use: : [facility] CASSIDY Re-evaluation QUESTION: ANSWER Would patient like to participate in any Care Coordination programs (if applicable): : Not applicable PATIENT: SHAGGY AGUAYO ENCOUNTER: [id number] MEDICAL RECORD#: [id number] ADMISSION DATE: 10/11/2020 DISCHARGE DATE: ATTENDING MD: VICENTA CM : AGE: 65 MARITAL STATUS: W DC PLAN ID: [id number] FACILITY: [facility] PRINTED ON: 10/16/20 23:53 CT All edits/amendments must be made on the electronic document DICTATION DATE: 10/16/202352 SEO SPECIALIST: ANDREW 10/16/202352 RPT#: [id number] DC DATE: STATUS: ADM IN [facility] [address] [place] [address] END OF REPORT
[2020-10-17 01:37] VITALS: BP 150/68
[2020-10-17 04:30] VITALS: BP 128/80
[2020-10-17 05:53] VITALS: BP 103/64
[2020-10-17 06:26] LABS: BASOPHILS 0.2 % (0-2); EOSINOPHILS 6.6 % (0-7); HEMATOCRIT 31.2 % (36.0-48.0); HEMOGLOBIN 9.6 g/dL (12-16); IMMATURE GRANULOCYTES 0.2 % (0-5); LYMPHOCYTE ABS# 1.82 10x3/uL (1.18-3.74); LYMPHOCYTES 34.4 % (15-50); MCH 27.8 pg (26.0-34.0); MCHC 30.8 g/dL (31.0-37.0); MCV 90.4 fL (80.0-100.0); MEAN PLATELET VOLUME 10.9 fL (7.4-10.4); MONOCYTES 6.8 % (2-11); NEUTROPHIL ABS# 2.74 10x3/uL (1.56-6.13); NEUTROPHILS 51.8 % (40-80); PLATELET COUNT 256 10x3/uL (130-400); RBC 3.45 10x6/uL (4.00-5.40); WBC 5.3 10x3/uL (4.8-10.8)
[2020-10-17 06:44] LABS: ALBUMIN 2.4 g/dL (3.4-5.0); ANION GAP 9.3 mmol/L (8-16); BILIRUBIN - TOTAL 0.27 mg/dL (0.2-1.3); CALCIUM 8.6 mg/dL (8.5-10.1); CARBON DIOXIDE 30.5 mmol/L (21.0-32.0); CREATININE - SERUM 1.1 mg/dL (0.6-1.3); POTASSIUM - SERUM 3.8 mmol/L (3.5-5.1)
[2020-10-17 08:00] VITALS: BP 164/72
--- NOTE | 2020-10-17 11:59 | NUR ---
Nutrition Reassessment/Follow-up: Tolerating full liquid diet; no further diet advancement per GI. Reports nausea without vomiting, as well as abd pain. States that last BM was 10/15; +flatus. Diet: Full Liquid PO intake: 100% x 3 yesterday No new wt; last wt: 265# (10/14) Last BM: 10/15 Labs noted: Glu 67, Alb 2.4 Meds noted: Reglan, Lantus, Zofran, Calcitriol, Protonix, Linzess, Humalog, MagOx, NS @ 100 Nutrition Goals: -PO intake >=75% avg meal intake. -Stable wt/appropriate wt loss. -Glu at or near normal. Nutrition Intervention: -Nutrition needs unchanged since initial assessment; no new wt available. -Continue current diet as tolerated. -Need new wt; noted daily wts ordered. -Monitor Glu. -RD will follow up within 5-7 days if pt still admitted.
[2020-10-17 12:00] VITALS: BP 163/75
--- NOTE | 2020-10-17 16:36 | MORECARE ---
CASE MANAGEMENT DISCHARGE SUMMARY PATIENT: SHAGGY AGUAYO UNIT: [id number] ADM DATE: 10/11/20 AGE: 65 : 59 SEX: F ROOM/BED: D.0140 AUTHOR: CONNER,DOC PHYSICIAN: REFERRING PHYSICIAN: VICENTA CARMEN MD DATE OF SERVICE: 10/17/20 Case Management Discharge Planning Summary COMMENTS ENTERED DATE: 10/17/20 16:15 CT COMMENT TYPE: Discharge Planning REVIEWER: Alejandra Sandoval CM MET WITH PATIENT REQUEST, PT PRESENTED WITH NEED TO HAVE MEDICATIONS DELIVERED FROM PHARMACY TOMORROW AFTER DISCHARGE. AFTER AN EXTENSIVE CONVERSATION WITH PATIENT THIS CM LEARNED THAT ULTIMATELY PATIENT IS WANTING TO MANAGER ORGANIZATIONAL 30 DAYS WORTH OF MEDICATIONS TOMORROW AT [facility] ON [address], SHE HAS A RIDE HOME AND COULD MANAGER ORGANIZATIONAL MEDS ON WAY HOME. PT STATES THAT SHE CARTER SET UP MAIL DELIVERY MEDICATIONS WITH HER INSURANCE COMPANY, BUT NEEDS TIME TO DO THAT. CM CALLED [facility] TO SEE IF PATIENT MEDS COULD BE FILL FOR 30 DAY PERIOD AND WAS INFORMED THAT PATIENT HAD PICKED UP ALL MEDS EXCEPT THYROID MEDICATION ON 10/08/20. PT SHOULD HAVE APPROX 3 WEEKS OF MEDICATION SHE HAS BEEN INPATIENT FOR 7 DAYS. [facility] WAS AGREEABLE TO TRANSFER REMAINING REFILLS ONCE PATIENT NOTIFIES THEM OF WHO SHE CHOOSES TO USE. PT NEEDS TO BE EDUCATED/INFORMED THAT SHE CAN CONTACT HER INSURANCE, PCP AND MAIL DELIVERY COMPANY OF CHOICE TO ASSURE HER MEDICATIONS ARE DELIVERED ON TIME. ENTERED DATE: 10/16/20 23:33 CT COMMENT TYPE: Discharge Planning REVIEWER: Katie Arias PCP [facility] [address] or [employer] mail order. CM spoke with patient and she states that she lives at home with her legally blind 25 yr old grandson Campbell. She states that she has had multiple admissions in the recent months. Patient states that she is concerned about transportation home and to f/u appointments. Patient states that she did have people she could call and they would drive her car to her appointments for her. CM contacted [employer] to see if she might qualify for Medicaid. (left Message with Luis) CM called [employer] bus to find out the cost to transport to her home from hospital as [place] pay $20.00 exact change only. KENIA also called [employer] to see about what community resources may be available to her. KENIA left message with Lesli Hall Precinct Captain at [facility]. CM also gave telephone numbers of these potential resources to the patient in case she is discharged before they all call back. Patient states that she is current with [facility] and wishes to resume care with them upon discharge. CHERRIE completed. DCP REVIEW SUMMARY ANTICIPATED D/C DATE: EXPECTED LOS : CASE STATUS: DCP Initiated INITIAL REVIEW: 10/11/2020 INITIAL REVIEWER: Katie Arias FINAL DISCHARGE DISPOSITION: : FINAL REVIEWER: FINAL REVIEW DATE: DCP Focus Questions & Answers DCP Screen QUESTION: ANSWER High Risk Factors: : 3 or more ED visits within the last 60 days DCP Evaluation QUESTION: ANSWER Patient's current cognitive status: : *Oriented to person, place, situation, time and present Patient gives permission to discuss discharge plans with: (name, relationship and number) : campbell shaikh- [phone] Patient's ability to cope with chronic illness : c. Inadequate (3+ ED visits in 6 mos., readmits within 30 days, 2+ hospital admissions in 1 yr.) Does the patient have the ability to pay for or attain post discharge needs / services? : Yes Functional screen assessment: : Unable to manage ADLs without immediate ongoing assistance Family / Caregiver's ability to cope with chronic illness: : c. Inadequate (Enables pt. to make bad choices, cannot meet pt's. needs, difficult family dynamics) Physical Status: : Mobility impaired Physical Status: : Compromised skin integrity Is there a likelihood that the patient will require additional services to return to the preadmission environment? : Yes Living Arrangements: : Home with Extended Family Partial Dependence, assistance required for: : Ambulation / Mobility Results of this evaluation have been discussed with: : Patient Patient with capacity for self-care or can be cared for in same environment as prior to hospitalization? 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 : No Comments: : patient states that she was paying someone to drive her in her car but her drivers one has recently and the other is currently in hospital. Would patient like to participate in any Care Coordination programs (if applicable): : Not applicable Does the patient have electricity at home? : Yes Does the patient have running water in their house? : Yes Equipment in use: : Wound Dressing Equipment in use: : Wheelchair Equipment in use: : Walker - Rollator Equipment in use: : Scooter Equipment in use: : Hospital Bed Equipment in use: : Bedside Commode Mental health screen: : No mental health history Psychosocial status: : Adult with physical limitations Resources / Services in place: : Home health Contact information for resources in use: : Griselda ARNETT DCP Re-evaluation QUESTION: ANSWER Would patient like to participate in any Care Coordination programs (if applicable): : Not applicable PATIENT: SHAGGY AGUAYO ENCOUNTER: [id number] MEDICAL RECORD#: [id number] ADMISSION DATE: 10/11/2020 DISCHARGE DATE: ATTENDING MD: VICENTA CM : AGE: 65 MARITAL STATUS: W DC PLAN ID: [id number] FACILITY: [facility] PRINTED ON: 10/17/20 16:35 CT All edits/amendments must be made on the electronic document DICTATION DATE: 10/17/201634 COMM[facility]ENTER COORDINATOR: ANDREW 10/17/20 163 RPT#: [id number] DC DATE: STATUS: ADM IN [facility] [address] [place] [address] END OF REPORT
[2020-10-17 20:39] VITALS: BP 144/66
[2020-10-18 00:02] VITALS: BP 120/66
--- NOTE | 2020-10-18 04:54 | NUR ---
I have reviewed this patient and I concur with the Shift Assessment completed by the Licensed Practical Nurse today this shift.
[2020-10-18 05:00] LABS: BASOPHILS 0.2 % (0-2); EOSINOPHILS 6.5 % (0-7); HEMATOCRIT 29.9 % (36.0-48.0); HEMOGLOBIN 9.1 g/dL (12-16); IMMATURE GRANULOCYTES 0.2 % (0-5); LYMPHOCYTE ABS# 1.96 10x3/uL (1.18-3.74); LYMPHOCYTES 34.6 % (15-50); MCH 27.7 pg (26.0-34.0); MCHC 30.4 g/dL (31.0-37.0); MCV 90.9 fL (80.0-100.0); MEAN PLATELET VOLUME 10.8 fL (7.4-10.4); MONOCYTES 6.2 % (2-11); NEUTROPHIL ABS# 2.97 10x3/uL (1.56-6.13); NEUTROPHILS 52.3 % (40-80); PLATELET COUNT 246 10x3/uL (130-400); RBC 3.29 10x6/uL (4.00-5.40); RDW 14.2 % (11.5-14.5); WBC 5.7 10x3/uL (4.8-10.8)
[2020-10-18 05:07] VITALS: BP 132/72
[2020-10-18 05:15] LABS: ALBUMIN 2.2 g/dL (3.4-5.0); ANION GAP 8.6 mmol/L (8-16); BILIRUBIN - TOTAL 0.19 mg/dL (0.2-1.3); CALCIUM 8.3 mg/dL (8.5-10.1); CARBON DIOXIDE 31.5 mmol/L (21.0-32.0); CREATININE - SERUM 1.1 mg/dL (0.6-1.3); MAGNESIUM - SERUM 1.7 mg/dL (1.8-2.4); POTASSIUM - SERUM 4.1 mmol/L (3.5-5.1); PROTEIN - SERUM 5.7 g/dL (6.4-8.2)
[2020-10-18 08:00] VITALS: BP 135/73
[2020-10-18] MEDS ORDERED: VENTOLIN HFA [SP8 GM INH (08:44)
[2020-10-18] MEDS ORDERED: ZANAFLEX4 MG PO (08:45)
[2020-10-18] MEDS ORDERED: ELIQUIS5 MG PO (08:46)
[2020-10-18] MEDS ORDERED: LISINOPRIL10 MG PO (08:47)
[2020-10-18] MEDS ORDERED: ISOSORBIDE MONO30 M1 PO (08:47)
[2020-10-18] MEDS ORDERED: TUMS X-STR300 MG PO (08:48)
[2020-10-18] MEDS ORDERED: ATARAX 25 MG TA25 MG PO (08:48)
[2020-10-18] MEDS ORDERED: PROTONIX40 MG PO (08:49)
[2020-10-18] MEDS ORDERED: ZOFRAN ODT4 MG/UDTAB PO (08:49)
[2020-10-18] MEDS ORDERED: LINZESS145 MCG PO (08:49)
[2020-10-18] MEDS ORDERED: MAG-OX 400 MG400 MG PO (08:49)
[2020-10-18] MEDS ORDERED: REGLAN10 MG PO (08:49)
[2020-10-18] MEDS ORDERED: LEVOTHYROXINE50 MCG PO (08:50)
[2020-10-18] MEDS ORDERED: LANTUS INS100 UNITS/ SC (08:50)
[2020-10-18] MEDS ORDERED: PROVIGIL100 MG PO (08:51)
[2020-10-18] MEDS ORDERED: NYSTATIN1 PWD TOPICAL (08:51)
[2020-10-18] MEDS ORDERED: BUTALB-APAP-CA1 EACH PO (08:51)
[2020-10-18] MEDS ORDERED: HUMALOG 30100 UNITS/ SC (08:51)
[2020-10-18] MEDS ORDERED: VITAMIN D21250 MC1 PO (08:51)
[2020-10-18] MEDS ORDERED: ROCALTROL0.25 MCG PO (08:51)
--- NOTE | 2020-10-18 10:32 | NUR ---
PATIENT AAOX4 RESP EVEN AND NON LABORED, NO S/S OF DISTRESS, MEDICTAIONS ADMINISTERED WITH NO COMPLICATIONS, RIGHT SUBCLAVIAN REMOVED WHILE PATIENT IS SITTING HIGH FOLWERS, PRESSURE APPLIED AND MEPILEX APPLIED, NO FURTHER NEEDS AT THIS TIME, CLIR, GHADAP
--- NOTE | 2020-10-20 17:28 | MORECARE ---
CASE MANAGEMENT DISCHARGE SUMMARY PATIENT: SHAGGY AGUAYO UNIT: [id number] ADM DATE: 10/11/20 AGE: 65 : 59 SEX: F ROOM/BED: D.7263 AUTHOR: CONNER,DOC PHYSICIAN: REFERRING PHYSICIAN: VICENTA CARMEN MD DATE OF SERVICE: 10/20/20 Case Management Discharge Planning Summary COMMENTS ENTERED DATE: 10/17/20 16:15 CT COMMENT TYPE: Discharge Planning REVIEWER: Alejandra Sandoval CM MET WITH PATIENT REQUEST, PT PRESENTED WITH NEED TO HAVE MEDICATIONS DELIVERED FROM PHARMACY TOMORROW AFTER DISCHARGE. AFTER AN EXTENSIVE CONVERSATION WITH PATIENT THIS CM LEARNED THAT ULTIMATELY PATIENT IS WANTING TO SEED PACKER 30 DAYS WORTH OF MEDICATIONS TOMORROW AT [facility] ON [address], SHE HAS A RIDE HOME AND COULD SEED PACKER MEDS ON WAY HOME. PT STATES THAT SHE CARTER SET UP MAIL DELIVERY MEDICATIONS WITH HER INSURANCE COMPANY, BUT NEEDS TIME TO DO THAT. CM CALLED [facility] TO SEE IF PATIENT MEDS COULD BE FILL FOR 30 DAY PERIOD AND WAS INFORMED THAT PATIENT HAD PICKED UP ALL MEDS EXCEPT THYROID MEDICATION ON 10/08/20. PT SHOULD HAVE APPROX 3 WEEKS OF MEDICATION SHE HAS BEEN INPATIENT FOR 7 DAYS. [facility] WAS AGREEABLE TO TRANSFER REMAINING REFILLS ONCE PATIENT NOTIFIES THEM OF WHO SHE CHOOSES TO USE. PT NEEDS TO BE EDUCATED/INFORMED THAT SHE CAN CONTACT HER INSURANCE, PCP AND MAIL DELIVERY COMPANY OF CHOICE TO ASSURE HER MEDICATIONS ARE DELIVERED ON TIME. ENTERED DATE: 10/16/20 23:33 CT COMMENT TYPE: Discharge Planning REVIEWER: Katie Arias PCP [facility] [address] or [employer] mail order. CM spoke with patient and she states that she lives at home with her legally blind 25 yr old grandson Campbell. She states that she has had multiple admissions in the recent months. Patient states that she is concerned about transportation home and to f/u appointments. Patient states that she did have people she could call and they would drive her car to her appointments for her. CM contacted [employer] to see if she might qualify for Medicaid. (left Message with Luis) CM called [employer] bus to find out the cost to transport to her home from hospital as [place] pay $20.00 exact change only. CM also called [employer] to see about what community resources may be available to her. CM left message with Lesli Hall Slitting Machine Feeder at [facility]. CM also gave telephone numbers of these potential resources to the patient in case she is discharged before they all call back. Patient states that she is current with [facility] and wishes to resume care with them upon discharge. CHERRIE completed. DCP REVIEW SUMMARY ANTICIPATED D/C DATE: EXPECTED LOS : CASE STATUS: DCP Initiated INITIAL REVIEW: 10/11/2020 INITIAL REVIEWER: Katie Arias FINAL DISCHARGE DISPOSITION: : FINAL REVIEWER: FINAL REVIEW DATE: DCP Focus Questions & Answers DCP Screen QUESTION: ANSWER High Risk Factors: : 3 or more ED visits within the last 60 days DCP Evaluation QUESTION: ANSWER Patient's ability to cope with chronic illness : c. Inadequate (3+ ED visits in 6 mos., readmits within 30 days, 2+ hospital admissions in 1 yr.) Patient gives permission to discuss discharge plans with: (name, relationship and number) : campbell shaikh- [phone] Patient's current cognitive status: : *Oriented to person, place, situation, time and present Physical Status: : Compromised skin integrity Physical Status: : Mobility impaired Family / Caregiver's ability to cope with chronic illness: : c. Inadequate (Enables pt. to make bad choices, cannot meet pt's. needs, difficult family dynamics) Functional screen assessment: : Unable to manage ADLs without immediate ongoing assistance Does the patient have the ability to pay for or attain post discharge needs / services? : Yes Partial Dependence, assistance required for: : Ambulation / Mobility Living Arrangements: : Home with Extended Family Is there a likelihood that the patient will require additional services to return to the preadmission environment? : Yes Baseline cognitive status: : *Oriented to person, place, situation, time and present Living arrangements comments: : 25 yr old grandson lives with her that is legally blind Patient with capacity for self-care or can be cared for in same environment as prior to hospitalization? : Yes Results of this evaluation have been discussed with: : Patient Preadmission facility can/cannot provide post hospital level of care needs: : Can - at same level of care as preadmission Medication Management: : Patient states they do not have transporation to corn picker medications Pharmacy name(s): : [facility] [employer] - mail order Does Patient have transportation to get home and to follow-up medical appointments when discharged from the hospital? : No Would patient like to participate in any Care Coordination programs (if applicable): : Not applicable Comments: : patient states that she was paying someone to drive her in her car but her drivers one has recently and the other is currently in hospital. Does the patient have electricity at home? : Yes Does the patient have running water in their house? : Yes Equipment in use: : Bedside Commode Equipment in use: : Hospital Bed Equipment in use: : Scooter Equipment in use: : Walker - Rollator Equipment in use: : Wheelchair Equipment in use: : Wound Dressing Mental health screen: : No mental health history Psychosocial status: : Adult with physical limitations Resources / Services in place: : Home health Contact information for resources in use: : Griselda ARNETT DCP Re-evaluation QUESTION: ANSWER Would patient like to participate in any Care Coordination programs (if applicable): : Not applicable PATIENT: SHAGGY AGUAYO ENCOUNTER: [id number] MEDICAL RECORD#: [id number] ADMISSION DATE: 10/11/2020 DISCHARGE DATE: 10/18/2020 ATTENDING MD: VICENTA CM : AGE: 65 MARITAL STATUS: W DC PLAN ID: [id number] FACILITY: [facility] PRINTED ON: 10/20/20 17:28 CT All edits/amendments must be made on the electronic document DICTATION DATE: 10/20/201726 LEAD DESIGNER: ANDREW 10/20/201726 RPT#: [id number] DC DATE:10/18/20 STATUS: DIS IN [facility] [address] [place] [address] END OF REPORT
--- NOTE | 2020-10-21 14:04 | MORECARE ---
CASE MANAGEMENT DISCHARGE SUMMARY PATIENT: SHAGGY AGUAYO UNIT: [id number] ADM DATE: 10/11/20 AGE: 65 : 59 SEX: F ROOM/BED: D.9825 AUTHOR: CONNER,DOC PHYSICIAN: REFERRING PHYSICIAN: VICENTA CARMEN MD DATE OF SERVICE: 10/21/20 Case Management Discharge Planning Summary COMMENTS ENTERED DATE: 10/17/20 16:15 CT COMMENT TYPE: Discharge Planning REVIEWER: Alejandra Sandoval CM MET WITH PATIENT REQUEST, PT PRESENTED WITH NEED TO HAVE MEDICATIONS DELIVERED FROM PHARMACY TOMORROW AFTER DISCHARGE. 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 PT STATES THAT SHE CARTER SET UP MAIL DELIVERY MEDICATIONS WITH HER INSURANCE COMPANY, BUT NEEDS TIME TO DO THAT. CM CALLED [facility] TO SEE IF PATIENT MEDS COULD BE FILL FOR 30 DAY PERIOD AND WAS INFORMED THAT PATIENT HAD PICKED UP ALL MEDS EXCEPT THYROID MEDICATION ON 10/08/20. PT SHOULD HAVE APPROX 3 WEEKS OF MEDICATION SHE HAS BEEN INPATIENT FOR 7 DAYS. [facility] WAS AGREEABLE TO TRANSFER REMAINING REFILLS ONCE PATIENT NOTIFIES THEM OF WHO SHE CHOOSES TO USE. PT NEEDS TO BE EDUCATED/INFORMED THAT SHE CAN CONTACT HER INSURANCE, PCP AND MAIL DELIVERY COMPANY OF CHOICE TO ASSURE HER MEDICATIONS ARE DELIVERED ON TIME. ENTERED DATE: 10/16/20 23:33 CT COMMENT TYPE: Discharge Planning REVIEWER: Katie Arias [facility]CP [facility] [address] or [employer] mail order. CM spoke with patient and she states that she lives at home with her legally blind 25 yr old grandson Campbell. She states that she has had multiple admissions in the recent months. Patient states that she is concerned about transportation home and to f/u appointments. Patient states that she did have people she could call and they would drive her car to her appointments for her. CM contacted [employer] to see if she might qualify for Medicaid. (left Message with Luis) CM called [facility] bus to find out the cost to transport to her home from hospital as [place] pay $20.00 exact change only. KENIA also called [employer] to see about what community resources may be available to her. KENIA left message with Lesli Hall Bioinformatics Scientist at [facility]. CM also gave telephone numbers of these potential resources to the patient in case she is discharged before they all call back. Patient states that she is current with [facility] and wishes to resume care with them upon discharge. CHERRIE completed. DCP REVIEW SUMMARY ANTICIPATED D/C DATE: EXPECTED LOS : CASE STATUS: DCP Initiated INITIAL REVIEW: 10/11/2020 INITIAL REVIEWER: Katie Arias FINAL DISCHARGE DISPOSITION: : FINAL REVIEWER: FINAL REVIEW DATE: DCP Focus Questions & Answers DCP Screen QUESTION: ANSWER High Risk Factors: : 3 or more ED visits within the last 60 days DCP Evaluation QUESTION: ANSWER Patient's current cognitive status: : *Oriented to person, place, situation, time and present Patient gives permission to discuss discharge plans with: (name, relationship and number) : campbell shaikh- [phone] Patient's ability to cope with chronic illness : c. Inadequate (3+ ED visits in 6 mos., readmits within 30 days, 2+ hospital admissions in 1 yr.) Does the patient have the ability to pay for or attain post discharge needs / services? : Yes Functional screen assessment: : Unable to manage ADLs without immediate ongoing assistance Family / Caregiver's ability to cope with chronic illness: : c. Inadequate (Enables pt. to make bad choices, cannot meet pt's. needs, difficult family dynamics) Physical Status: : Mobility impaired Physical Status: : Compromised skin integrity Is there a likelihood that the patient will require additional services to return to the preadmission environment? : Yes Living Arrangements: : Home with Extended Family Partial Dependence, assistance required for: : Ambulation / Mobility Results of this evaluation have been discussed with: : Patient Patient with capacity for self-care or can be cared for in same environment as prior to hospitalization? : Yes Living arrangements comments: : 25 yr old grandson lives with her that is legally blind Baseline cognitive status: : *Oriented to person, place, situation, time and present Preadmission facility can/cannot provide post hospital level of care needs: : Can - at same level of care as preadmission Medication Management: : Patient states they do not have transporation to black pickler medications Pharmacy name(s): : [facility] [employer] - mail order Does Patient have transportation to get home and to follow-up medical appointments when discharged from the hospital? : No Comments: : patient states that she was paying someone to drive her in her car but her drivers one has recently and the other is currently in hospital. Would patient like to participate in any Care Coordination programs (if applicable): : Not applicable Does the patient have electricity at home? : Yes Does the patient have running water in their house? : Yes Equipment in use: : Wound Dressing Equipment in use: : Wheelchair Equipment in use: : Walker - Rollator Equipment in use: : Scooter Equipment in use: : Hospital Bed Equipment in use: : Bedside Commode Mental health screen: : No mental health history Psychosocial status: : Adult with physical limitations Resources / Services in place: : Home health Contact information for resources in use: : Griselda ARNETT DCP Re-evaluation QUESTION: ANSWER Would patient like to participate in any Care Coordination programs (if applicable): : Not applicable PATIENT: SHAGGY AGUAYO ENCOUNTER: [id number] MEDICAL RECORD#: [id number] ADMISSION DATE: 10/11/2020 DISCHARGE DATE: 10/18/2020 ATTENDING MD: VICENTA CM : AGE: 65 MARITAL STATUS: W DC PLAN ID: [id number] FACILITY: [facility] PRINTED ON: 10/21/20 14:04 CT All edits/amendments must be made on the electronic document DICTATION DATE: 10/21/201403 TIP LENGTH CHECKER: ANDREW 10/21/20 140 RPT#: [id number] DC DATE:10/18/20 STATUS: DIS IN [facility] [address] [place] [address] END OF REPORT
== END 2020-10-18 12:31 | disposition home health service (06) | DRG 74 ==
LOC: D.M2 11:48
PROVIDERS: Emergency Medicine; Family Medicine; ADMIT Emergency Medicine; ATTEND Emergency Medicine
PROC: 05H533Z Insertion of Infusion Device into Right Subclavian Vein, Percutaneous Approach (ICD-10-PCS; principal; 2020-10-11)
DX: E11.43 Type 2 diabetes mellitus with diabetic autonomic (poly)neuropathy (principal); F11.20 Opioid dependence, uncomplicated; K31.84 Gastroparesis; E21.3 Hyperparathyroidism, unspecified; I25.10 Atherosclerotic heart disease of native coronary artery without angina pectoris; E11.51 Type 2 diabetes mellitus with diabetic peripheral angiopathy without gangrene; Z95.0 Presence of cardiac pacemaker; J44.9 Chronic obstructive pulmonary disease, unspecified; E11.22 Type 2 diabetes mellitus with diabetic chronic kidney disease; I12.9 Hypertensive chronic kidney disease with stage 1 through stage 4 chronic kidney disease, or unspecified chronic kidney disease; N18.9 Chronic kidney disease, unspecified; I48.91 Unspecified atrial fibrillation; G89.4 Chronic pain syndrome; E66.9 Obesity, unspecified; Z68.38 Body mass index [BMI] 38.0-38.9, adult